=== PATIENT | male | born 1980 | race American Indian/Alaskan Native ===

== ENCOUNTER 2017-05-26 15:04 | Emergency (ER) | payer SELFPAY ==
[2017-05-26 15:50] VITALS: BP 116/66
--- NOTE | 2017-05-26 16:32 | XRay Report ---
FINAL REPORT PROCEDURE: XR KNEE 3V RT TECHNIQUE: Three views of the right knee are obtained HISTORY: Right knee pain and swelling/ GOUT COMPARISON: No prior studies are available for comparison. FINDINGS: Mild soft tissue swelling and joint effusion are seen. No erosions or soft tissue calcifications are seen. No fracture or dislocation is seen. IMPRESSION: Mild soft tissue swelling and joint effusion are seen.
[2017-05-26] MEDS ORDERED: TORADOL IM ONE (17:17)
--- NOTE | 2017-05-26 18:23 | Emergency Department Report ---
Entered by GM FIGUEROA, acting as scribe for SHANTELLE HONG NP. ED Lower Extremity HPI - General Chief Complaint: Extremity Injury, Lower Stated Complaint: RT KNEE SWOLLEN GOUT Time Seen by Provider: 05/26/17 17:01 Source: patient Mode of arrival: Ambulatory Limitations: No Limitations - History of Present Illness Initial Comments: This is a 36 y/o male, nontoxic, well nourished in appearance, no acute signs of distress presents with right knee pain x 2 days. Patient states he has a hx of gout. Patient denies any trauma. Patient stated has similar symptoms in the past for gout and has been treated with steroids and pain medication. Patients associated symptoms include swelling and pain but he denies numbness, tingling, fever, chills, joint redness, chest pain, shortness of breathe, nausea and vomiting. Pain is described as 8/10. Denies injury. No alleviating factors despite taking OTC meds and no aggravating factors. NKDA. WELCH Complaint: other (right knee pain) Onset/Timin -: days(s) Injury: Knee: Right Place: home Severity: moderate Severity scale (0 -10): 8 Improves With: nothing Worsens With: nothing Context: other (PMHx of gout) Associated Symptoms: swelling, ambulatory. denies: snap/pop sensation, numbness , tingling, unable to bear weight, able to partially bear weight, other (fever, chills, nausea, vomiting) - Related Data Previous Rx's Medication Instructions Recorded Last Taken Type Ibuprofen [Motrin 600 MG tab] 600 mg PO Q8H PRN #30 tablet 05/26/17 Unknown Rx predniSONE [Deltasone] 20 mg PO BID #10 tab 05/26/17 Unknown Rx Allergies Allergy/AdvReac Type Severity Reaction Status Date / Time No Known Allergies Allergy Unverified 05/19/15 11:36 ED Review of Systems Comment: All other systems reviewed and negative Constitutional: denies: chills, fever Eyes: denies: eye pain, eye discharge, vision change ENT: denies: ear pain, throat pain Respiratory: denies: cough, shortness of breath, wheezing Cardiovascular: denies: chest pain, palpitations Endocrine: no symptoms reported Gastrointestinal: denies: nausea, vomiting Genitourinary: denies: urgency, dysuria Musculoskeletal: denies: back pain, joint swelling, arthralgia Skin: other (swelling) Neurological: denies: numbness, other (tingling) Psychiatric: denies: anxiety, depression Hematological/Lymphatic: denies: easy bleeding, easy bruising ED Past Medical Hx - Past Medical History Previous Medical History?: Yes Additional medical history: gout - Surgical History Past Surgical History?: No - Social History Smoking Status: Current Every Day Smoker Substance Use Type: Alcohol, Non Opiate Pain - Medications Home Medications: Home Medications Medication Instructions Recorded Confirmed Last Taken Type Ibuprofen [Motrin 600 MG tab] 600 mg PO Q8H PRN #30 tablet 05/26/17 Unknown Rx predniSONE [Deltasone] 20 mg PO BID #10 tab 05/26/17 Unknown Rx ED Physical Exam - General Limitations: No Limitations General appearance: alert, in no apparent distress - Head Head exam: Present: atraumatic, normocephalic, normal inspection - Eye Eye exam: Present: normal appearance, PERRL, EOMI. Absent: scleral icterus, conjunctival injection, nystagmus, periorbital swelling, periorbital tenderness Pupils: Present: normal accommodation - ENT ENT exam: Present: normal exam, normal orophraynx, mucous membranes moist, TM's normal bilaterally, normal external ear exam - Neck Neck exam: Present: normal inspection, full ROM. Absent: tenderness, meningismus, lymphadenopathy, thyromegaly - Respiratory Respiratory exam: Present: normal lung sounds bilaterally. Absent: respiratory distress, wheezes, rales, rhonchi, stridor, chest wall tenderness, accessory muscle use, decreased breath sounds, prolonged expiratory - Cardiovascular Cardiovascular Exam: Present: regular rate, normal rhythm, normal heart sounds. Absent: bradycardia, tachycardia, irregular rhythm, systolic murmur, diastolic murmur, rubs, gallop - GI/Abdominal GI/Abdominal exam: Present: soft, normal bowel sounds. Absent: distended, tenderness, guarding, rebound, rigid, diminished bowel sounds - Rectal Rectal exam: Present: deferred - Extremities Exam Extremities exam: Present: normal inspection, full ROM, normal capillary refill. Absent: tenderness, pedal edema, joint swelling, calf tenderness - Expanded Lower Extremity Exam Right Hip exam: Present: normal inspection, full ROM. Absent: tenderness Upper Leg exam: Present: normal inspection, full ROM. Absent: tenderness Knee exam: Present: normal inspection (negative warm to touch.), full ROM, tenderness, swelling, effusion, full knee extension. Absent: abrasion, laceration, ecchymosis, deformity, crepidus, dislocation, erythema, pain w/ pronation/supination, posterior draw sign, pain/laxity with valgus, pain/laxity with varus Lower Leg exam: Present: normal inspection, full ROM. Absent: tenderness, swelling, abrasion, laceration, ecchymosis, deformity, crepidus, dislocation, erythema, palpable cord, Karoline's sign Ankle exam: Present: normal inspection, full ROM. Absent: tenderness, swelling , abrasion, laceration, ecchymosis, deformity, crepidus, dislocation, erythema, anterior draw sign Foot/Toe exam: Present: normal inspection, full ROM. Absent: tenderness, swelling, abrasion, laceration, ecchymosis, deformity, crepidus, dislocation, erythema, amputation, puncture wound, foreign body, calcaneal tenderness, tenderness at base of 5th metatarsal, nail avulsion, subungual hematoma Neuro vascular tendon exam: Present: no vascular compromise. Absent: pulse deficit, abnormal cap refill, motor deficit, sensory deficit, tendon deficit, extremity cold to touch, pallor, abnormal 2-point discrimination, decreased fine /light touch, foot drop, peroneal nerve deficit, significant pain with passive ROM of distal joint Gait: Positive: observed and normal - Back Exam Back exam: Present: normal inspection, full ROM. Absent: tenderness, CVA tenderness (R), CVA tenderness (L), muscle spasm, paraspinal tenderness, vertebral tenderness, rash noted - Neurological Exam Neurological exam: Present: alert, oriented X3, CN II-XII intact, normal gait, reflexes normal - Psychiatric Psychiatric exam: Present: normal affect, normal mood - Skin Skin exam: Present: warm, dry, intact, normal color. Absent: rash, erythema, other (cellulitis) ED Course Vital Signs 05/26/17 15:46 Temperature 98.1 F Pulse Rate 97 H Respiratory 18 Rate Blood Pressure 116/66 O2 Sat by Pulse 95 Oximetry - Reevaluation(s) Reevaluation #1: 05/26/17 17:32 Patient is able to speak in full sentences with no signs of distress noted. ED Lower Extremity MDM - Medical Decision Making Ed course: This is a 36-year-old male that presents with gout attack 1- patient was examined by myself. Xray has been obtained prior to my interview. Dictated by radiologist. Impression: Joint effusion with no fracture. Patient has been notified of x-ray findings with no further was noted by the patient. 2- signs and symptoms are consistent with gout. Patient received Toradol and prednisone IM and ED. 3- patient was instructed to follow-up with his primary care doctor in 3-5 days or if symptoms such as numbness, tingling, joint redness, warmth to touch, fever , chills, nausea or vomiting return to emergency room as soon as possible. 4- patient received prednisone and ibuprofen at the time of discharge. 5- At time time of discharge, the patient does not seem toxic or ill in appearance. No acute signs of distress noted. Patient agrees to discharge treatment plan of care. No further questions noted by the patient. ED Disposition Clinical Impression: Gout attack Qualifiers: Gout site: unspecified site Gout etiology: unspecified cause Qualified Code(s) : M10.9 - Gout, unspecified Disposition: DC-01 TO HOME OR SELFCARE Is pt being admited?: No Does the pt Need Aspirin: No Condition: Stable Instructions: Ibuprofen (By mouth), Prednisone (By mouth), Acute Gouty Arthritis (ED) Additional Instructions: follow-up with the primary care doctor in 3-5 days or if symptoms such as numbness, tingling, joint redness, warmth to touch, fever, chills, nausea or vomiting return to emergency room as soon as possible. Take prednisone and ibuprofen as prescribed. Prescriptions: Ibuprofen [Motrin 600 MG tab] 600 mg PO Q8H PRN #30 tablet PRN Reason: Pain predniSONE [Deltasone] 20 mg PO BID #10 tab Referrals: PRIMARY CARE, [Primary Care Provider] - 3-5 Days SHANAE NOYOLA MD [Staff Physician] - 3-5 Days [facility] [Outside] - 3-5 Days [facility] [Outside] - 3-5 Days This documentation as recorded by the HENRY rodriguez ELIZABETH,accurately reflects the service I personally performed and the decisions made by me,SHANTELLE HONG, LEGAL BILLING COORDINATOR.
== END 2017-05-26 18:07 | disposition home or self-care (01) ==
LOC: ED 15:04
DX: M10.9 Gout, unspecified (principal); F17.200 Nicotine dependence, unspecified, uncomplicated
CPT/HCPCS: 73562; 96372; 99283; J1885; J2930

== ENCOUNTER 2019-12-10 00:11 | Emergency (ER) | payer SELFPAY ==
[2019-12-10 00:43] VITALS: BP 128/81
[2019-12-10] MEDS ORDERED: IPRATROPIUM/ALBUTEROL SULFATE 3 ML AMPUL.NEB IH ONE (01:50)
[2019-12-10] MEDS ORDERED: dexAMETHasone 20 MG/5 ML VIAL IV ONE (01:50)
--- NOTE | 2019-12-10 02:14 | Emergency Department Report ---
ED General Adult HPI - General Chief complaint: Chest Pain Stated complaint: CHEST PAIN/SOB Time Seen by Provider: 12/10/19 01:27 Source: patient Mode of arrival: Ambulatory Limitations: No Limitations - History of Present Illness Initial comments: Mr. Blunt is a 38-year-old -Indian male with a history of asthma recurrent bronchitis states recent incarceration. He presents for cough with chest wall pain for the last 3 weeks. States he was diagnosed with Pneumonia 4 days ago when he was released from [facility] prior to receiving treatment.. He pr esents tonight for cough chest wall pain active audible wheezing. He denies history of intubation rates symptoms at 7/10 at this time however. He does report cough that is productive yellow thick. Chest pain is with cough only. Symptoms are exacerbated by environmental exposure. Symptoms are relieved by nothing. Onset/Timin -: week(s) Location: chest Radiation: non-radiation Severity scale (0 -10): 5 Quality: sharp Consistency: intermittent Improves with: none Worsens with: other (environmental Exposure ) Associated Symptoms: chest pain, cough, shortness of breath. denies: fever/chills, nausea/vomiting Treatments Prior to Arrival: none - Related Data Previous Rx's Medication Instructions Recorded Last Taken Type Ibuprofen [Motrin 600 MG tab] 600 mg PO Q8H PRN #30 tablet 05/26/17 Unknown Rx predniSONE [Deltasone] 20 mg PO BID #10 tab 05/26/17 Unknown Rx Albuterol INH(or & Nicu Only) 2 puff IH QID PRN #8.5 gram 12/10/19 Unknown Rx [ProAir HFA Inhaler] Amoxicillin/Potassium Clav 1 each PO BID 10 Days #20 tablet 12/10/19 Unknown Rx [Augmentin 875-125 Tablet] Ibuprofen [Motrin 800 MG tab] 800 mg PO Q8HR PRN #30 tablet 12/10/19 Unknown Rx predniSONE [Deltasone] 40 mg PO QDAY 5 Days #10 tab 12/10/19 Unknown Rx Allergies Allergy/AdvReac Type Severity Reaction Status Date / Time No Known Allergies Allergy Unverified 05/19/15 11:36 ED Review of Systems ROS: Stated complaint: CHEST PAIN/SOB Other details as noted in HPI Constitutional: fever. denies: chills Eyes: denies: eye pain, eye discharge, vision change ENT: ear pain, throat pain, congestion Respiratory: cough, shortness of breath, wheezing Cardiovascular: chest pain. denies: palpitations Endocrine: no symptoms reported Gastrointestinal: denies: abdominal pain, nausea, vomiting, diarrhea Genitourinary: denies: urgency, dysuria Musculoskeletal: denies: back pain, joint swelling, arthralgia Skin: denies: rash, lesions Neurological: denies: headache, weakness, paresthesias, vertigo Psychiatric: as per HPI Hematological/Lymphatic: denies: easy bleeding, easy bruising ED Past Medical Hx - Past Medical History Previous Medical History?: Yes Additional medical history: gout - Surgical History Past Surgical History?: No - Social History Smoking Status: Never Smoker - Medications Home Medications: Home Medications Medication Instructions Recorded Confirmed Last Taken Type Ibuprofen [Motrin 600 MG tab] 600 mg PO Q8H PRN #30 tablet 05/26/17 Unknown Rx predniSONE [Deltasone] 20 mg PO BID #10 tab 05/26/17 Unknown Rx Albuterol INH(or & Nicu Only) 2 puff IH QID PRN #8.5 gram 12/10/19 Unknown Rx [ProAir HFA Inhaler] Amoxicillin/Potassium Clav 1 each PO BID 10 Days #20 tablet 12/10/19 Unknown Rx [Augmentin 875-125 Tablet] Ibuprofen [Motrin 800 MG tab] 800 mg PO Q8HR PRN #30 tablet 12/10/19 Unknown Rx predniSONE [Deltasone] 40 mg PO QDAY 5 Days #10 tab 12/10/19 Unknown Rx ED Physical Exam - General Limitations: No Limitations General appearance: alert, in no apparent distress - Head Head exam: Present: atraumatic, normocephalic - Eye Eye exam: Present: normal appearance, PERRL, EOMI Pupils: Present: normal accommodation - ENT ENT exam: Present: normal orophraynx, mucous membranes moist - Expanded ENT Exam Expanded Ear exam: Present: other (bilat maxillary sinus tenderness no swelling no erythema ) TM/Canal exam: Erythema: Left TM Throat exam: Positive: tonsillar erythema, tonsillomegaly, other (uvula midline no edema, no exudate, no lesions no stridor ). Negative: tonsillar exudate, R peritonsillar mass, L peritonsillar mass - Neck Neck exam: Present: normal inspection, full ROM. Absent: tenderness, meningismus, lymphadenopathy, thyromegaly - Respiratory Respiratory exam: Present: wheezes, chest wall tenderness (right lateral chest wall tenderness , no crepitus, no swelling , no ecchymosis, ). Absent: respiratory distress, rales, rhonchi, stridor - Expanded Respiratory Exam Expanded Location: Wheezes: Right, Left, Upper - Cardiovascular Cardiovascular Exam: Present: regular rate, normal rhythm, normal heart sounds. Absent: systolic murmur, diastolic murmur, rubs, gallop - GI/Abdominal GI/Abdominal exam: Present: soft, normal bowel sounds. Absent: tenderness, bruit, hernia - Rectal Rectal exam: Present: deferred - Extremities Exam Extremities exam: Present: normal inspection, full ROM - Back Exam Back exam: Present: normal inspection, full ROM. Absent: tenderness, CVA tenderness (R), CVA tenderness (L) - Neurological Exam Neurological exam: Present: alert, oriented X3, CN II-XII intact, normal gait - Psychiatric Psychiatric exam: Present: normal affect, normal mood - Skin Skin exam: Present: warm, dry, intact, normal color. Absent: rash ED Course Vital Signs 12/10/19 12/10/19 00:26 02:36 Temperature 97.4 F L Pulse Rate 101 H Pulse Rate [ 104 H Bilateral] Respiratory 20 Rate Respiratory 22 Rate [Bilateral ] Blood Pressure 128/81 O2 Sat by Pulse 98 Oximetry ED Medical Decision Making - EKG Data EKG shows normal: sinus rhythm, axis, intervals, QRS complexes, ST-T waves Rate: tachycardia (107 bpm ) - EKG Data Interpretation: normal EKG (NSTach, no ST Elevated VA, EKG interp by ed attending ) - Radiology Data Radiology results: report reviewed, image reviewed Findings [facility] [address] [place] [address] XRay Report Signed Patient: JOVANNY BLUNT MR#: [id number] 2012 : 1980 Acct:[id number] Age/Sex: 38 / M ADM Date: 12/10/19 Loc: ED Attending Dr: Ordering Physician: MONICA ODEN NP Date of Service: 12/10/19 Procedure (s): XR chest routine 2V Accession Number(s): [id number] cc: MONICA T. RELEFORD, RN FORENSIC Fluoro Time In Minutes: CHEST 2 VIEWS INDICATION / CLINICAL INFORMATION: cp wheezing fever. COMPARISON: None available. FINDINGS: SUPPORT DEVICES: None. HEART / MEDIASTINUM: No significant abnormality. LUNGS / PLEURA: No significant pulmonary or pleural abnormality. .No pneumothorax. ADDITIONAL FINDINGS: No significant additional findings. IMPRESSION: 1. No acute findings. Signer Name: Fernando Valladares MD Signed: 12/10/2019 2:15 AM Workstation Name: [id number] Transcribed By: SS Dictated By: Fernando Valladares MD Electronically Authenticated By: Fernando Valladares MD Signed Date/Time: 12/10/19214 DD/ 3 TD/TT: - Medical Decision Making Chest x-ray no infiltrate no opacities noted, symptoms are improved with medications given in ED., Given fever and 3-1/2-week course follow-up prescribe augmentin, albuterol, prednisone, Tessalon, patient will take [id number] ibuprofen as needed for fever and chest wall pain. Patient will follow-up with PCP in 2 to 3 days given referral to [facility]. Lung sounds are now much improved patient is ambulatory in ED without increased shortness of breath or wheezing. Critical care attestation.: If time is entered above; I have spent that time in minutes in the direct care of this critically ill patient, excluding procedure time. ED Disposition Clinical Impression: Bronchitis Sinusitis Qualifiers: Sinusitis location: maxillary Chronicity: acute Recurrence: non-recurrent Qualified Code(s): J01.00 - Acute maxillary sinusitis, unspecified Disposition: TO HOME OR SELFCARE Is pt being admited?: No Does the pt Need Aspirin: No Condition: Stable Instructions: Acute Bronchitis (ED), Sinusitis (ED), Asthma (ED) Prescriptions: Amoxicillin/Potassium Clav [Augmentin 875-125 Tablet] 1 each PO BID 10 Days #20 tablet predniSONE [Deltasone] 40 mg PO QDAY 5 Days #10 tab Ibuprofen [Motrin 800 MG tab] 800 mg PO Q8HR PRN #30 tablet PRN Reason: fever pain Albuterol INH(or & Nicu Only) [ProAir HFA Inhaler] 2 puff IH QID PRN #8.5 gram PRN Reason: Shortness Of Breath Referrals: PRIMARY CARE, [Primary Care Provider] - 3-[address] [facility] [Outside] - 3-5 Days Forms: Work/School Release Form(ED) Time of Disposition: 03:44
--- NOTE | 2019-12-10 02:19 | XRay Report ---
CHEST 2 VIEWS INDICATION / CLINICAL INFORMATION: cp wheezing fever. COMPARISON: None available. FINDINGS: SUPPORT DEVICES: None. HEART / MEDIASTINUM: No significant abnormality. LUNGS / PLEURA: No significant pulmonary or pleural abnormality. .No pneumothorax. ADDITIONAL FINDINGS: No significant additional findings. IMPRESSION: 1. No acute findings. Signer Name: Fernando Valladares MD Signed: 12/10/2019 2:15 AM Workstation Name: [id number]
== END 2019-12-10 03:59 | disposition home or self-care (01) ==
LOC: ED 00:11
DX: J01.00 Acute maxillary sinusitis, unspecified (principal); J40 Bronchitis, not specified as acute or chronic; Z79.899 Other long term (current) drug therapy
CPT/HCPCS: 71046; 93005; 93010; 94644; 96374; 99283; J1100; 94640

== ENCOUNTER 2019-12-26 15:33 | Emergency (ER) | payer SELFPAY ==
[2019-12-26 16:14] VITALS: BP 126/85
--- NOTE | 2019-12-26 16:14 | Event Note ---
ED Screening Note Date of service: 12/26/19 Time: 16:13 ED Screening Note: 39 y.o. M. that presents to the ER with cough, SOB, and chest discomfort for 1 month. Treated for bronchitis when symptoms started. Using inhaler with minimal improvement of symptoms. SOB and chest discomfort with exertion. This initial assessment/diagnostic orders/clinical plan/treatment(s) is/are subject to change based on patients health status, clinical progression and re- assessment by fellow clinical providers in the ED. Further treatment and workup at subsequent clinical providers discretion. Patient/guardian urged not to elope from the ED as their condition may be serious if not clinically assessed and managed. Initial orders include:
--- NOTE | 2019-12-26 16:30 | Emergency Department Report ---
Minor Respiratory - HPI Chief Complaint: Dyspnea/Respdistress Stated Complaint: CHEST PAIN/SOB/COUGH Time Seen by Provider: 12/26/19 16:13 Duration: 1 MONTH Pain Location: Nose Severity: moderate Minor Respiratory: Yes Rhinorrhea, Yes Able to Tolerate Fluids, Yes Cough, Yes Sick Contacts, No Sore Throat, No Ear Pain, No Hemoptysis, No Chest Pain, No Shortness of Breath, No Fever Other History: 39 y.o. M. that presents to the ER with cough, SOB, and chest discomfort for 1 month. Treated for bronchitis when symptoms started. Using inhaler with minimal improvement of symptoms. Took claritin for a few days with no change in symptoms. Requesting refill on inhaler. Denies chest pain, wheezing, myalgia, headache, N/V/D. ED Review of Systems ROS: Stated complaint: CHEST PAIN/SOB/COUGH Other details as noted in HPI Constitutional: denies: chills, fever ENT: congestion. denies: ear pain, throat pain Respiratory: cough. denies: shortness of breath, wheezing Cardiovascular: denies: chest pain, palpitations Gastrointestinal: denies: abdominal pain, nausea, diarrhea Musculoskeletal: denies: back pain, joint swelling, arthralgia Skin: denies: rash, lesions Neurological: denies: headache, weakness, paresthesias Psychiatric: denies: anxiety, depression ED Past Medical Hx - Past Medical History Previous Medical History?: Yes Additional medical history: gout - Surgical History Past Surgical History?: No - Social History Smoking Status: Current Some Day Smoker Substance Use Type: None - Medications Home Medications: Home Medications Medication Instructions Recorded Confirmed Last Taken Type Ibuprofen [Motrin 600 MG tab] 600 mg PO Q8H PRN #30 tablet 05/26/17 Unknown Rx predniSONE [Deltasone] 20 mg PO BID #10 tab 05/26/17 Unknown Rx Albuterol INH(or & Nicu Only) 2 puff IH QID PRN #8.5 gram 12/10/19 Unknown Rx [ProAir HFA Inhaler] Amoxicillin/Potassium Clav 1 each PO BID 10 Days #20 tablet 12/10/19 Unknown Rx [Augmentin 875-125 Tablet] Ibuprofen [Motrin 800 MG tab] 800 mg PO Q8HR PRN #30 tablet 12/10/19 Unknown Rx predniSONE [Deltasone] 40 mg PO QDAY 5 Days #10 tab 12/10/19 Unknown Rx Albuterol INH(or & Nicu Only) 2 puff IH QID PRN #8.5 gram 12/26/19 Unknown Rx [ProAir HFA Inhaler] Montelukast [Singulair] 10 mg PO QPM #30 tablet 12/26/19 Unknown Rx methylPREDNISolone [Medrol 4MG 4 mg PO DAILY #1 tab.ds.pk 12/26/19 Unknown Rx DOSEPAK (21 tabs)] Minor Respiratory Exam - Exam General: Vital signs noted. No distress. Alert and acting appropriately. HEENT: Yes Moist Mucous Membranes, Yes Rhinorrhea (congestion with mucoid discharge), No Pharyngeal Erythema, No Pharyngeal Exudates, No Conjuctival Injection, No Frontal Tenderness, No Maxillary Tenderness Ear: Neither TM Bulge, Neither TM Erythema, Neither EAC Pain, Neither EAC Discharge Neck: Yes Supple, No Adenopathy Lungs: Yes Good Air Exchange, No Wheezes, No Ronchi, No Stridor, No Cough, No Labored Respirations, No Retractions, No Use of Accessory Muscles, No Other Abnormal Lung Sounds Heart: Yes Regular, No Murmur Abdomen: Yes Normal Bowel Sounds, No Tenderness, No Peritoneal Signs Skin: No Rash, No Edema Neurologic: Alert and oriented, no deficits. Musculoskeletal: Unremarkable. ED Course Vital Signs 12/26/19 15:39 Temperature 98.1 F Pulse Rate 78 Respiratory 18 Rate Blood Pressure 126/85 O2 Sat by Pulse 94 Oximetry ED Medical Decision Making - Medical Decision Making This is a 39 y.o. M. that presents to the ER with persistent cough and congestion for 1 month. VSS. No acute distress. Normal exam. Imaging and labs are deferred at this time. There is low suspicion of pneumonia. Will treat for bronchitis. Start antibiotics and steroids. Continue NSAIDs for comfort. Increase fluid intake. Wash hands frequently. Follow-up with your primary care doctor. Patient discharged home stable with strict return instructions. Critical care attestation.: If time is entered above; I have spent that time in minutes in the direct care of this critically ill patient, excluding procedure time. ED Disposition Clinical Impression: Cough in adult, Post-viral cough syndrome, Bronchitis Disposition: TO HOME OR SELFCARE Is pt being admited?: No Condition: Stable Instructions: Chronic Bronchitis (ED) Prescriptions: methylPREDNISolone [Medrol 4MG DOSEPAK (21 tabs)] 4 mg PO DAILY #1 tab.ds.pk Albuterol INH(or & Nicu Only) [ProAir HFA Inhaler] 2 puff IH QID PRN #8.5 gram PRN Reason: Shortness Of Breath Montelukast [Singulair] 10 mg PO QPM #30 tablet Referrals: [facility] [Outside] - 3-5 Days [facility] [Outside] - 3-5 Days [facility] [Outside] - 3-5 Days Time of Disposition: 16:31
== END 2019-12-26 18:07 | disposition home or self-care (01) ==
LOC: ED 15:33
DX: J40 Bronchitis, not specified as acute or chronic (principal); B34.9 Viral infection, unspecified; F17.200 Nicotine dependence, unspecified, uncomplicated
CPT/HCPCS: 99282

== ENCOUNTER 2020-01-20 22:18 | Emergency (ER) | payer SELFPAY ==
[2020-01-20 22:25] VITALS: BP 121/86
--- NOTE | 2020-01-20 23:09 | XRay Report ---
CHEST 2 VIEWS INDICATION / CLINICAL INFORMATION: Cough and shortness of breath. COMPARISON: 12/10/19. FINDINGS: SUPPORT DEVICES: None. HEART / MEDIASTINUM: The heart size and pulmonary vasculature are normal. LUNGS / PLEURA: No significant pulmonary or pleural abnormality. No pneumothorax. ADDITIONAL FINDINGS: No significant additional findings. IMPRESSION: No acute abnormality or significant change. Signer Name: Itz Zabala MD Signed: 01/20/2020 11:04 PM Workstation Name: [id number]
[2020-01-21] MEDS ORDERED: IPRATROPIUM/ALBUTEROL SULFATE 3 ML AMPUL.NEB IH ONE (02:34)
[2020-01-21] MEDS ORDERED: methylPREDNISolone Sod Succinate 125 MG/2 ML INJ IM ONE (02:34)
[2020-01-21] MEDS ORDERED: ACETAMINOPHEN 500 MG TAB PO ONE (02:35)
[2020-01-21] MEDS ORDERED: ALBUTEROL 2.5 MG/3 ML NEBU IH ONE (02:35)
--- NOTE | 2020-01-21 04:17 | Emergency Department Report ---
- General Chief Complaint: Upper Respiratory Infection Stated Complaint: SOB/CHEST PAIN Source: patient Mode of arrival: Ambulatory Limitations: No Limitations - History of Present Illness Initial Comments: Patient is a 39-year-old -Prydeinig male with a history of chronic bronchitis who presented to the ED with complaint of acute onset persistent nasal and sinus congestion, frontal sinus pressure and headache, persistent dry cough and wheezing with shortness of breath for the last 1 month, and which got worse in the last 1 week. Patient states that he has been using his albuterol inhaler at home more frequently and he ran out of the same about 12 hours ago. Patient states that the symptoms have worsened especially in the last 24 hours. Patient denies dizziness, syncope, chest pain, abdominal pain, fever, chills, sore throat, nausea and vomiting or diarrhea. Patient states that no one else at home is had similar symptoms. MD Complaint: cough, rhinorrhea, nasal congestion, sinus pain -: Gradual, month(s) (1) Severity: severe Severity scale (0 -10): 7 Quality: sharp, aching Consistency: intermittent Improves With: nothing Worsens With: nothing Associated Symptoms: denies other symptoms, rhinorrhea, nasal congestion, cough, shortness of breath. denies: fever, chills, myalgias, diaphoresis, headache, chest pain, abdominal pain, nausea, vomiting, diarrhea, confusion, weight loss, epistaxis Treatments Prior to Arrival: none - Related Data Previous Rx's Medication Instructions Recorded Last Taken Type predniSONE [Deltasone] 20 mg PO BID #10 tab 05/26/17 Unknown Rx Albuterol INH(or & Nicu Only) 2 puff IH QID PRN #8.5 gram 12/10/19 Unknown Rx [ProAir HFA Inhaler] Amoxicillin/Potassium Clav 1 each PO BID 10 Days #20 tablet 12/10/19 Unknown Rx [Augmentin 875-125 Tablet] Ibuprofen [Motrin 800 MG tab] 800 mg PO Q8HR PRN #30 tablet 12/10/19 Unknown Rx predniSONE [Deltasone] 40 mg PO QDAY 5 Days #10 tab 12/10/19 Unknown Rx Montelukast [Singulair] 10 mg PO QPM #30 tablet 12/26/19 Unknown Rx methylPREDNISolone [Medrol 4MG 4 mg PO DAILY #1 tab.ds.pk 12/26/19 Unknown Rx DOSEPAK (21 tabs)] Albuterol INH(or & Nicu Only) 2 puff IH QID PRN #8.5 gram 01/21/20 Unknown Rx [ProAir HFA Inhaler] Benzonatate [Tessalon Perles] 100 mg PO Q8HR #30 capsule 01/21/20 Unknown Rx Cetirizine HCl [Zyrtec 10mg tab] 10 mg PO DAILY #30 tablet 01/21/20 Unknown Rx Doxycycline Hyclate 100 mg PO Q12H #20 tablet.dr 01/21/20 Unknown Rx Ibuprofen [Motrin 600 MG tab] 600 mg PO Q8H PRN #30 tablet 01/21/20 Unknown Rx Prednisone [predniSONE 10 mg 10 mg PO .TAPER #21 tab.ds.pk 01/21/20 Unknown Rx (6-Day Pack, 21 Tabs)] Allergies Allergy/AdvReac Type Severity Reaction Status Date / Time No Known Allergies Allergy Verified 12/26/19 15:41 ED Review of Systems ROS: Stated complaint: SOB/CHEST PAIN Other details as noted in HPI Constitutional: denies: chills, fever Eyes: denies: eye pain, eye discharge, vision change ENT: congestion. denies: ear pain, throat pain Respiratory: cough, shortness of breath, wheezing Cardiovascular: denies: chest pain, palpitations Endocrine: no symptoms reported Gastrointestinal: denies: abdominal pain, nausea, diarrhea Genitourinary: denies: urgency, dysuria Musculoskeletal: denies: back pain, joint swelling, arthralgia Skin: denies: rash, lesions Neurological: denies: headache, weakness, paresthesias Psychiatric: denies: anxiety, depression Hematological/Lymphatic: denies: easy bleeding, easy bruising ED Past Medical Hx - Past Medical History Previous Medical History?: Yes Additional medical history: gout - Surgical History Past Surgical History?: No - Social History Smoking Status: Former Smoker Substance Use Type: None - Medications Home Medications: Home Medications Medication Instructions Recorded Confirmed Last Taken Type predniSONE [Deltasone] 20 mg PO BID #10 tab 05/26/17 Unknown Rx Albuterol INH(or & Nicu Only) 2 puff IH QID PRN #8.5 gram 12/10/19 Unknown Rx [ProAir HFA Inhaler] Amoxicillin/Potassium Clav 1 each PO BID 10 Days #20 tablet 12/10/19 Unknown Rx [Augmentin 875-125 Tablet] Ibuprofen [Motrin 800 MG tab] 800 mg PO Q8HR PRN #30 tablet 12/10/19 Unknown Rx predniSONE [Deltasone] 40 mg PO QDAY 5 Days #10 tab 12/10/19 Unknown Rx Montelukast [Singulair] 10 mg PO QPM #30 tablet 12/26/19 Unknown Rx methylPREDNISolone [Medrol 4MG 4 mg PO DAILY #1 tab.ds.pk 12/26/19 Unknown Rx DOSEPAK (21 tabs)] Albuterol INH(or & Nicu Only) 2 puff IH QID PRN #8.5 gram 01/21/20 Unknown Rx [ProAir HFA Inhaler] Benzonatate [Tessalon Perles] 100 mg PO Q8HR #30 capsule 01/21/20 Unknown Rx Cetirizine HCl [Zyrtec 10mg tab] 10 mg PO DAILY #30 tablet 01/21/20 Unknown Rx Doxycycline Hyclate 100 mg PO Q12H #20 tablet.dr 01/21/20 Unknown Rx Ibuprofen [Motrin 600 MG tab] 600 mg PO Q8H PRN #30 tablet 01/21/20 Unknown Rx Prednisone [predniSONE 10 mg 10 mg PO .TAPER #21 tab.ds.pk 01/21/20 Unknown Rx (6-Day Pack, 21 Tabs)] ED Physical Exam - General Limitations: No Limitations General appearance: alert, in no apparent distress - Head Head exam: Present: atraumatic, normocephalic, normal inspection - Eye Eye exam: Present: normal appearance, PERRL, EOMI Pupils: Present: normal accommodation - ENT ENT exam: Present: mucous membranes moist, TM's normal bilaterally, normal external ear exam, other (Grossly congested nasal passages) - Neck Neck exam: Present: normal inspection, full ROM. Absent: tenderness, meningismus, lymphadenopathy, thyromegaly - Respiratory Respiratory exam: Present: wheezes (Moderately diffuse coarse wheezes throughout). Absent: respiratory distress, rales, rhonchi, stridor, chest wall tenderness, accessory muscle use, decreased breath sounds - Cardiovascular Cardiovascular Exam: Present: normal rhythm, tachycardia, normal heart sounds. Absent: systolic murmur, diastolic murmur, rubs, gallop - GI/Abdominal GI/Abdominal exam: Present: soft, normal bowel sounds. Absent: distended, tenderness, guarding, hyperactive bowel sounds, hypoactive bowel sounds, organo megaly - Extremities Exam Extremities exam: Present: normal inspection, full ROM, normal capillary refill - Back Exam Back exam: Present: normal inspection, full ROM. Absent: tenderness, CVA tenderness (R), CVA tenderness (L), muscle spasm, paraspinal tenderness, vertebral tenderness - Neurological Exam Neurological exam: Present: alert, oriented X3, CN II-XII intact, normal gait, reflexes normal - Psychiatric Psychiatric exam: Present: normal affect, normal mood - Skin Skin exam: Present: warm, dry, intact, normal color. Absent: rash ED Course Vital Signs 01/20/20 22:23 Temperature 98.1 F Pulse Rate 105 H Respiratory 18 Rate Blood Pressure 121/86 O2 Sat by Pulse 92 Oximetry ED Medical Decision Making - Radiology Data Radiology results: report reviewed, image reviewed Chest x-ray shows no acute cardiopulmonary abnormalities. - Medical Decision Making This is a 39-year-old male with a history of chronic bronchitis who presented to the ED with complaint of persistent shortness of breath, wheezing, dry cough, nasal and sinus congestion despite using his albuterol inhaler at home. In the ED, patient is alert and oriented x3 and is not in distress but tachycardic and afebrile in triage. Patient received DuoNeb treatment in the ED and also received steroid. Chest x-ray shows no acute cardiopulmonary abnormalities or pneumonitis. On reevaluation, patient's wheezing resolved with medications. Patient was discharged home on albuterol inhaler, oral steroids and cough medications. Patient was advised to follow-up with his primary care physician in 3 to 5 days for reevaluation or return to the ED immediately if symptoms get worse. - Differential Diagnosis Pneumonia; Bronchitis; Sinusitis; URI; Reactive Airway disease Critical care attestation.: If time is entered above; I have spent that time in minutes in the direct care of this critically ill patient, excluding procedure time. ED Disposition Clinical Impression: Acute upper respiratory infection Acute bronchitis Qualifiers: Bronchitis organism: other organism Qualified Code(s): J20.8 - Acute bronchitis due to other specified organisms Acute sinusitis, unspecified Qualifiers: Sinusitis location: pansinusitis Recurrence: non-recurrent Qualified Code(s): J01.40 - Acute pansinusitis, unspecified Reactive airway disease with wheezing Qualifiers: Asthma severity: moderate Asthma persistence: persistent Asthma complication type: with acute exacerbation Qualified Code(s): J45.41 - Moderate persistent asthma with (acute) exacerbation Disposition: - TO HOME OR SELFCARE Is pt being admited?: No Does the pt Need Aspirin: No Condition: Stable Instructions: Acute Bronchitis (ED), Acute Bacterial Rhinosinusitis (ED), R eactive Airways Disease (ED) Additional Instructions: Chest x-ray shows no acute cardiopulmonary abnormalities. Take medications with food, drink plenty of fluids and follow-up with your primary care physician in 5 to 7 days for reevaluation. Return to the ED immediately if symptoms get worse. Prescriptions: Doxycycline Hyclate 100 mg PO Q12H #20 tablet. Ibuprofen [Motrin 600 MG tab] 600 mg PO Q8H PRN #30 tablet PRN Reason: Pain Prednisone [predniSONE 10 mg (6-Day Pack, 21 Tabs)] 10 mg PO .TAPER #21 tab.ds.pk Albuterol INH(or & Nicu Only) [ProAir HFA Inhaler] 2 puff IH QID PRN #8.5 gram PRN Reason: Shortness Of Breath Benzonatate [Tessalon Perles] 100 mg PO Q8HR #30 capsule Cetirizine HCl [Zyrtec 10mg tab] 10 mg PO DAILY #30 tablet Referrals: LIANNE AGRAWAL MD [Staff Physician] - 3-5 Days Forms: Work/School Release Form(ED) Time of Disposition: 04:19 Print Language: ESTONIAN
== END 2020-01-21 04:40 | disposition home or self-care (01) ==
LOC: ED 22:18
DX: J06.9 Acute upper respiratory infection, unspecified (principal); J45.909 Unspecified asthma, uncomplicated; J20.8 Acute bronchitis due to other specified organisms; J01.90 Acute sinusitis, unspecified; M10.9 Gout, unspecified; Z79.899 Other long term (current) drug therapy; Z87.891 Personal history of nicotine dependence
CPT/HCPCS: 71046; 94640; 96372; 99283; J2930; 94644

== ENCOUNTER 2020-02-05 21:13 | Inpatient (IN) | payer OTHER ==
[2020-02-05] MEDS ORDERED: ALUM-MAG HYDROXIDE-SIMETHICONE 200-200-20MG/5ML ORAL LIQD 30 ML PO STA (21:50)
[2020-02-05] MEDS ORDERED: HYOSCYAMINE SUBL 0.125 MG TAB SL ONE (21:50)
[2020-02-05] MEDS ORDERED: LIDOCAINE VISCOUS 2% 15 ML ORAL LIQD PO ONE (21:50)
[2020-02-05 21:56] LABS: Basophils # (Auto) 0.1 K/mm3 (0.0-0.1); Basophils % (Auto) 0.4 % (0.0-1.8); Eosinophils # (Auto) 0.5 K/mm3 (0.0-0.4); Eosinophils % (Auto) 3.1 % (0.0-4.3); Hematocrit 36.9 % (35.5-45.6); Hemoglobin 11.8 gm/dl (11.8-15.2); Lymphocytes % (Auto) 6.9 % (13.4-35.0); Mean Corpuscular HGB Conc 32 % (32-34); Monocytes # (Auto) 0.7 K/mm3 (0.0-0.8); Monocytes % (Auto) 4.9 % (0.0-7.3); Red Blood Count 5.81 M/mm3 (3.65-5.03); Red Cell Distribution Width 18.5 % (13.2-15.2)
[2020-02-05 22:05] LABS: Mean Corpuscular Volume 63 fl (84-94)
[2020-02-05 22:06] LABS: Platelet Count 104 K/mm3 (140-440)
[2020-02-05 22:11] LABS: Bilirubin,Urine NEG (Negative); Blood,Urine NEG (Negative); Color,Urine Yellow (Yellow); Mucus,Urine FEW /HPF; Urobilinogen,Urine < 2.0 mg/dL (<2.0)
[2020-02-05 22:12] LABS: Protein,Urine >500 mg/dL (Negative)
[2020-02-05 22:19] LABS: Alanine Aminotransferase 13 units/L (7-56); Albumin 2.8 g/dL (3.9-5); BUN/Creatinine Ratio 5; Blood Urea Nitrogen 4 mg/dL (9-20); Calcium 9.3 mg/dL (8.4-10.2); Hemolysis Index 4
--- NOTE | 2020-02-05 22:45 | XRay Report ---
ACUTE ABDOMINAL SERIES INDICATION / CLINICAL INFORMATION: Abdominal pain and constipation. Heartburn. COMPARISON: None available. FINDINGS: Upright and supine views of the abdomen demonstrate scattered air-fluid levels, predominantly in the colon. There is no evidence of bowel dilatation, free air or mass effect. No abnormal calcification i s seen. The accompanying chest radiograph constraints a normal heart size and clear lungs. IMPRESSION: Scattered air-fluid levels in the colon without associated dilatation. The findings may b e related to a low-grade colitis. Other causes of diarrhea could have this appearance. Signer Name: Itz Zabala MD Signed: 02/05/2020 10:41 PM Workstation Name: [id number]
[2020-02-05] MEDS ORDERED: SODIUM CHLORIDE 0.9% 1000 ML 1,000 ML IV ONE (23:21)
--- NOTE | 2020-02-06 00:06 | Cat Scan Report ---
CT abdomen pelvis w con INDICATION / CLINICAL INFORMATION: MAIN: eupper ABD Pain 100cc Omni 300 . TECHNIQUE: Axial CT imaging of abdomen and pelvis was obtained with IV contrast. Coronal and sagittal reformatte d imaging obtained and reviewed. All CT scans at this location are performed using CT dose reduction for ALARA by means of automated exposure control. COMPARISON: None available. FINDINGS: CT abdomen with contrast demonstrates normal appearance of the liver, spleen, kidneys and adrenal gla nds. Gallbladder is mostly collapsed. No biliary dilatation. The pancreas is diffusely enlarged and there is mild peripancreatic inflammatory change surrounding e ntire pancreas consistent with pancreatitis. Pancreatic parenchyma is enhancing normally. No biliary dilatation. No free fluid or focal abnormal fluid collection. CT pelvis with contrast demonstrates normal appearance of a retrocecal appendix. No pelvic mass, free fluid, or focal inflammatory change. GI tract is grossly unremarkable. Visualized lung bases are clear. No acute osseous abnormality. IMPRESSION: 1. Mild acute pancreatitis. Signer Name: Suzi Campos MD Signed: 02/06/2020 12:02 AM Workstation Name: [id number]
[2020-02-06] MEDS ORDERED: KETOROLAC 30 MG/1 ML INJ IM ONE (00:53)
[2020-02-06] MEDS ORDERED: KETOROLAC 30 MG/1 ML INJ IV ONE (01:03)
--- NOTE | 2020-02-06 01:03 | Emergency Department Report ---
ED Abdominal Pain HPI - General Chief Complaint: Abdominal Pain Stated Complaint: STOMAHC PAINS HEARTBURN SLIGHT SOB Time Seen by Provider: 02/05/20 21:50 Source: patient Mode of arrival: Ambulatory Limitations: No Limitations - History of Present Illness Initial Comments: 29-year-old male with no comorbidities was emergency department complaining of upper abdominal pain associated with some nausea and burning. Reports having some EtOH preceding his pain no.no diarrhea no constipation no hematemesis no hematochezia. MD Complaint: abdominal pain -: Gradual (1), days(s) - Related Data Previous Rx's Medication Instructions Recorded Last Taken Type predniSONE [Deltasone] 20 mg PO BID #10 tab 05/26/17 Unknown Rx Albuterol INH(or & Nicu Only) 2 puff IH QID PRN #8.5 gram 12/10/19 Unknown Rx [ProAir HFA Inhaler] Amoxicillin/Potassium Clav 1 each PO BID 10 Days #20 tablet 12/10/19 Unknown Rx [Augmentin 875-125 Tablet] Ibuprofen [Motrin 800 MG tab] 800 mg PO Q8HR PRN #30 tablet 12/10/19 Unknown Rx predniSONE [Deltasone] 40 mg PO QDAY 5 Days #10 tab 12/10/19 Unknown Rx Montelukast [Singulair] 10 mg PO QPM #30 tablet 12/26/19 Unknown Rx methylPREDNISolone [Medrol 4MG 4 mg PO DAILY #1 tab.ds.pk 12/26/19 Unknown Rx DOSEPAK (21 tabs)] Albuterol INH(or & Nicu Only) 2 puff IH QID PRN #8.5 gram 01/21/20 Unknown Rx [ProAir HFA Inhaler] Benzonatate [Tessalon Perles] 100 mg PO Q8HR #30 capsule 01/21/20 Unknown Rx Cetirizine HCl [Zyrtec 10mg tab] 10 mg PO DAILY #30 tablet 01/21/20 Unknown Rx Doxycycline Hyclate 100 mg PO Q12H #20 tablet. 01/21/20 Unknown Rx Ibuprofen [Motrin 600 MG tab] 600 mg PO Q8H PRN #30 tablet 01/21/20 Unknown Rx Prednisone [predniSONE 10 mg 10 mg PO .TAPER #21 tab.ds.pk 01/21/20 Unknown Rx (6-Day Pack, 21 Tabs)] Allergies Allergy/AdvReac Type Severity Reaction Status Date / Time No Known Allergies Allergy Verified 12/26/19 15:41 ED Review of Systems ROS: Stated complaint: STOMAHC PAINS HEARTBURN SLIGHT SOB Other details as noted in HPI Comment: All other systems reviewed and negative ED Past Medical Hx - Past Medical History Previous Medical History?: Yes Additional medical history: gout, Bronchitis - Surgical History Past Surgical History?: No - Social History Smoking Status: Former Smoker Substance Use Type: None - Medications Home Medications: Home Medications Medication Instructions Recorded Confirmed Last Taken Type predniSONE [Deltasone] 20 mg PO BID #10 tab 05/26/17 Unknown Rx Albuterol INH(or & Nicu Only) 2 puff IH QID PRN #8.5 gram 12/10/19 Unknown Rx [ProAir HFA Inhaler] Amoxicillin/Potassium Clav 1 each PO BID 10 Days #20 tablet 12/10/19 Unknown Rx [Augmentin 875-125 Tablet] Ibuprofen [Motrin 800 MG tab] 800 mg PO Q8HR PRN #30 tablet 12/10/19 Unknown Rx predniSONE [Deltasone] 40 mg PO QDAY 5 Days #10 tab 12/10/19 Unknown Rx Montelukast [Singulair] 10 mg PO QPM #30 tablet 12/26/19 Unknown Rx methylPREDNISolone [Medrol 4MG 4 mg PO DAILY #1 tab.ds.pk 12/26/19 Unknown Rx DOSEPAK (21 tabs)] Albuterol INH(or & Nicu Only) 2 puff IH QID PRN #8.5 gram 01/21/20 Unknown Rx [ProAir HFA Inhaler] Benzonatate [Tessalon Perles] 100 mg PO Q8HR #30 capsule 01/21/20 Unknown Rx Cetirizine HCl [Zyrtec 10mg tab] 10 mg PO DAILY #30 tablet 01/21/20 Unknown Rx Doxycycline Hyclate 100 mg PO Q12H #20 tablet.dr 01/21/20 Unknown Rx Ibuprofen [Motrin 600 MG tab] 600 mg PO Q8H PRN #30 tablet 01/21/20 Unknown Rx Prednisone [predniSONE 10 mg 10 mg PO .TAPER #21 tab.ds.pk 01/21/20 Unknown Rx (6-Day Pack, 21 Tabs)] ED Physical Exam - General Limitations: No Limitations General appearance: alert, in no apparent distress - Head Head exam: Present: atraumatic, normocephalic - Eye Eye exam: Present: normal appearance, PERRL, EOMI Pupils: Present: normal accommodation - ENT ENT exam: Present: normal exam, normal orophraynx, mucous membranes moist, TM's normal bilaterally - Neck Neck exam: Present: normal inspection - Respiratory Respiratory exam: Present: normal lung sounds bilaterally. Absent: respiratory distress, wheezes, rales, chest wall tenderness, accessory muscle use - Cardiovascular Cardiovascular Exam: Present: regular rate, normal rhythm. Absent: systolic murmur, diastolic murmur, rubs, gallop - GI/Abdominal GI/Abdominal exam: Present: soft, tenderness (To the epigastric region), normal bowel sounds. Absent: rebound, hypoactive bowel sounds, mass, bruit, pulsatile mass - Rectal Rectal exam: Present: deferred - Extremities Exam Extremities exam: Present: normal inspection - Back Exam Back exam: Present: normal inspection - Neurological Exam Neurological exam: Present: alert, oriented X3 - Psychiatric Psychiatric exam: Present: normal affect, normal mood - Skin Skin exam: Present: warm, dry, intact, normal color. Absent: rash ED Course Vital Signs 02/05/20 21:17 Temperature 98.6 F Pulse Rate 110 H Respiratory 18 Rate Blood Pressure 145/97 O2 Sat by Pulse 97 Oximetry ED Medical Decision Making - Lab Data Result diagrams: 02/05/20 21:37 02/05/20 21:37 - Radiology Data Radiology results: [place] [address] Cat Scan Report Signed Patient: JOVANNY BLUNT MR#: [id number] 2012 : 1980 Acct:[id number] Age/Sex: 39 / M ADM Date: 02/05/20 Loc: ED Attending Dr: Ordering Physician: JOE KRAMER Date of Service: 02/05/20 Procedure(s): CT abdomen pelvis w con Accession Number(s): [id number] cc: JOE KRAMER CT abdomen pelvis w con INDICATION / CLINICAL INFORMATION: MAIN: eupper ABD Pain 100cc Omni 300 . TECHNIQUE: Axial CT imaging of abdomen and pelvis was obtained with IV contrast. Coronal and sagittal reformatted imaging obtained and reviewed. All CT scans at this location are performed using CT dose reduction for ALARA by means of automated exposure control. COMPARISON: None available. FINDINGS: CT abdomen with contrast demonstrates normal appearance of the liver, spleen, kidneys and adrenal glands. Gallbladder is mostly collapsed. No biliary dilatation. The pancreas is diffusely enlarged and there is mild peripancreatic inflammatory change surrounding entire pancreas consistent with pancreatitis. Pancreatic parenchyma is enhancing normally. No biliary dilatation. No free fluid or focal abnormal fluid collection. CT pelvis with contrast demonstrates normal appearance of a retrocecal appendix. No pelvic mass, free fluid, or focal inflammatory change. GI tract is grossly unremarkable. Visualized lung bases are clear. No acute osseous abnormality. IMPRESSION: 1. Mild acute pancreatitis. Signer Name: Suzi Campos MD Signed: 02/06/2020 12:02 AM Workstation Name: [id number] Transcribed By: Dictated By: Suzi Campos MD Electronically Authenticated By: Suzi Campos MD Signed Date/Time: 02/06/20 0002 DD/ 2359 TD/TT: - Medical Decision Making [address] [address] Cat Scan Report Signed Patient: JOVANNY BLUNT MR#: [id number] 2012 : 1980 Acct:[id number] Age/Sex: 39 / M ADM Date: 02/05/20 Loc: ED Attending Dr: Ordering Physician: JOE KRAMER Date of Service: 02/05/20 Procedure(s): CT abdomen pelvis w con Accession Number(s): [id number] cc: JOE KRAMER CT abdomen pelvis w con INDICATION / CLINICAL INFORMATION: MAIN: eupper ABD Pain 100cc Omni 300 . TECHNIQUE: Axial CT imaging of abdomen and pelvis was obtained with IV contrast. Coronal and sagittal reformatted imaging obtained and reviewed. All CT scans at this location are performed using CT dose reduction for ALARA by means of automated exposure control. COMPARISON: None available. FINDINGS: CT abdomen with contrast demonstrates normal appearance of the liver, spleen, kidneys and adrenal glands. Gallbladder is mostly collapsed. No biliary dilatation. The pancreas is diffusely enlarged and there is mild peripancreatic inflammatory change surrounding entire pancreas consistent with pancreatitis. Pancreatic parenchyma is enhancing normally. No biliary dilatation. No free fluid or focal abnormal fluid collection. CT pelvis with contrast demonstrates normal appearance of a retrocecal appendix. No pelvic mass, free fluid, or focal inflammatory change. GI tract is grossly unremarkable. Visualized lung bases are clear. No acute osseous abnormality. IMPRESSION: 1. Mild acute pancreatitis. Signer Name: Suzi Campos MD Signed: 02/06/2020 12:02 AM Workstation Name: [id number] Transcribed By: JR Dictated By: Suzi Campos MD Electronically Authenticated By: Suzi Campos MD Signed Date/Time: 02/06/20 0002 DD/ 2359 TD/TT: This patient presents with abdominal pain which appears to be secondary to acute pancreatitis. A CT scan was performed to evaluate for potential causes of the abdominal pain, and did yield a mild pancreatitis etiology for the abdominal pain. Specifically, given the benign exam, the laboratory studies, and unremarkable CT, I have a very low suspicion for appendicitis, ischemic bowel, bowel perforation, or any other life threatening disease. I have discussed with the patient the findings on CT examination for the cause of abdominal pain and clearly explained the need t for admission for definitive treatment of this condition. He was provided with fluids and placed on n.p.o. Case was discussed with the attending Dr. Magaña as well as the hospitalist Dr. Roy Critical care attestation.: If time is entered above; I have spent that time in minutes in the direct care of this critically ill patient, excluding procedure time. ED Disposition Clinical Impression: Acute pancreatitis Disposition: OP ADMIT IP TO THIS HOSP Is pt being admited?: Yes Does the pt Need Aspirin: No Condition: Stable Referrals: ABENA DEGROOT MD [Primary Care Provider] - 3-5 Days
[2020-02-06] MEDS ORDERED: SODIUM CHLORIDE 0.9% 1000 ML 1,000 ML IV ONE (01:04)
[2020-02-06] MEDS ORDERED: ALBUTEROL 8.5 GM INHALATION IH PRN (03:25)
--- NOTE | 2020-02-06 03:25 | History and Physical Report ---
History of Present Illness Date of examination: 02/06/20 Date of admission: February 06, 2020 Chief complaint: Severe epigastric pain and vomiting for last 3 days History of present illness: 29-year-old male with history of asthma and bronchitis comes in for severe epiga stric pain for the last 3 days. Associated with vomiting. Pain is about 10 on a scale of 1-10. Patient has been using alcohol on a regular basis. Had a pint of vodka on Saturday which is February 02, 2020. Vomited couple of times. No blood in the vomit. No diarrhea. There is the first episode of epigastric pain.. Patient has a history of asthma and bronchitis and regular basis. No cough now. No exposure to coronavirus patients. No recent travel. - Past Medical History Previous Medical History?: Yes Additional medical history: gout, Bronchitis - Surgical History Past Surgical History?: No - Social History Smoking Status: Former Smoker Substance Use Type: None - Medications Home Medications: Home Medications Medication Instructions Recorded Confirmed Last Taken Type predniSONE [Deltasone] 20 mg PO BID #10 tab 05/26/17 Unknown Rx Albuterol INH(or & Nicu Only) 2 puff IH QID PRN #8.5 gram 12/10/19 Unknown Rx [ProAir HFA Inhaler] Amoxicillin/Potassium Clav 1 each PO BID 10 Days #20 tablet 12/10/19 Unknown Rx [Augmentin 875-125 Tablet] Ibuprofen [Motrin 800 MG tab] 800 mg PO Q8HR PRN #30 tablet 12/10/19 Unknown Rx predniSONE [Deltasone] 40 mg PO QDAY 5 Days #10 tab 12/10/19 Unknown Rx Montelukast [Singulair] 10 mg PO QPM #30 tablet 12/26/19 Unknown Rx methylPREDNISolone [Medrol 4MG 4 mg PO DAILY #1 tab.ds.pk 12/26/19 Unknown Rx DOSEPAK (21 tabs)] Albuterol INH(or & Nicu Only) 2 puff IH QID PRN #8.5 gram 01/21/20 Unknown Rx [ProAir HFA Inhaler] Benzonatate [Tessalon Perles] 100 mg PO Q8HR #30 capsule 01/21/20 Unknown Rx Cetirizine HCl [Zyrtec 10mg tab] 10 mg PO DAILY #30 tablet 01/21/20 Unknown Rx Doxycycline Hyclate 100 mg PO Q12H #20 tablet. 01/21/20 Unknown Rx Ibuprofen [Motrin 600 MG tab] 600 mg PO Q8H PRN #30 tablet 01/21/20 Unknown Rx Prednisone [predniSONE 10 mg 10 mg PO .TAPER #21 tab.ds.pk 01/21/20 Unknown Rx (6-Day Pack, 21 Tabs)] Review of Systems ROS: GI severe epigastric pain associated with nausea and vomiting. Pain is about 10 on a scale of 1-10. Constitutional no weight loss or weight gain no fever or chills HEENT no sore throat no post nasal drip no diplopia Neck no neck stiffness no lymph gland enlargement Chest and lungs no shortness of breath cough or wheezing CVS no chest pain no diaphoresis no palpitations Genitourinary system no dysuria no flank pain Musculoskeletal system no muscle pains no joint pains [employer] no syncope no seizures Skin no rash no itching Psychiatric no depression no homicidal or suicidal tendencies Hematologic no lymphedema or bruising Endocrine no polydipsia no polyuria no cold intolerance no heat intolerance Medications and Allergies Allergies Allergy/AdvReac Type Severity Reaction Status Date / Time No Known Allergies Allergy Verified 12/26/19 15:41 Home Medications Medication Instructions Recorded Confirmed Last Taken Type predniSONE [Deltasone] 20 mg PO BID #10 tab 05/26/17 Unknown Rx Albuterol INH(or & Nicu Only) 2 puff IH QID PRN #8.5 gram 12/10/19 Unknown Rx [ProAir HFA Inhaler] Amoxicillin/Potassium Clav 1 each PO BID 10 Days #20 tablet 12/10/19 Unknown Rx [Augmentin 875-125 Tablet] Ibuprofen [Motrin 800 MG tab] 800 mg PO Q8HR PRN #30 tablet 12/10/19 Unknown Rx predniSONE [Deltasone] 40 mg PO QDAY 5 Days #10 tab 12/10/19 Unknown Rx Montelukast [Singulair] 10 mg PO QPM #30 tablet 12/26/19 Unknown Rx methylPREDNISolone [Medrol 4MG 4 mg PO DAILY #1 tab.ds.pk 12/26/19 Unknown Rx DOSEPAK (21 tabs)] Albuterol INH(or & Nicu Only) 2 puff IH QID PRN #8.5 gram 01/21/20 Unknown Rx [ProAir HFA Inhaler] Benzonatate [Tessalon Perles] 100 mg PO Q8HR #30 capsule 01/21/20 Unknown Rx Cetirizine HCl [Zyrtec 10mg tab] 10 mg PO DAILY #30 tablet 01/21/20 Unknown Rx Doxycycline Hyclate 100 mg PO Q12H #20 tablet.dr 01/21/20 Unknown Rx Ibuprofen [Motrin 600 MG tab] 600 mg PO Q8H PRN #30 tablet 01/21/20 Unknown Rx Prednisone [predniSONE 10 mg 10 mg PO .TAPER #21 tab.ds.pk 01/21/20 Unknown Rx (6-Day Pack, 21 Tabs)] Exam - Constitutional Vitals: Temp Pulse Resp BP Pulse Ox 98.1 F 94 H 18 147/93 99 02/06/20 01:29 02/06/20 01:29 02/06/20 01:29 02/06/20 01:29 02/06/20 01:29 General appearance: Present: no acute distress, well-nourished - EENT Eyes: Present: PERRL ENT: hearing intact, clear oral mucosa - Neck Neck: Present: supple, normal ROM - Respiratory Respiratory effort: normal Respiratory: bilateral: CTA - Cardiovascular Heart rate: 78 Rhythm: regular Heart Sounds: Present: S1 & S2. Absent: rub, click - Extremities Extremities: no ischemia, pulses intact, pulses symmetrical, No edema Peripheral Pulses: within normal limits - Abdominal General gastrointestinal: Present: soft, tender, non-distended, normal bowel sounds Localized gastrointestinal: tender: diffuse, epigastric periumbilical, guarding: epigastric periumbilical Male genitourinary: Present: normal - Rectal Rectal Exam: stool brown - Integumentary Integumentary: Present: clear, warm, dry - Musculoskeletal Musculoskeletal: gait normal, strength equal bilaterally - Psychiatric Psychiatric: appropriate mood/affect, intact judgment & insight - Neurologic Neurologic: CNII-XII intact, moves all extremities - Allied Health Allied health notes reviewed: nursing, case management Results - Labs CBC & Chem 7: 02/05/20 21:37 02/05/20 21:37 Labs: Laboratory Last Values WBC 15.1 K/mm3 (4.5-11.0) H 02/05/20 21:37 RBC 5.81 M/mm3 (3.65-5.03) H 02/05/20 21:37 Hgb 11.8 gm/dl (11.8-15.2) 02/05/20 21:37 Hct 36.9 % (35.5-45.6) 02/05/20 21:37 MCV 63 fl (84-94) L 02/05/20 21:37 MCH 20 pg (28-32) L 02/05/20 21:37 MCHC 32 % (32-34) 02/05/20 21:37 RDW 18.5 % (13.2-15.2) H 02/05/20 21:37 Plt Count 104 K/mm3 (140-440) L 02/05/20 21:37 Lymph % (Auto) 6.9 % (13.4-35.0) L 02/05/20 21:37 Lucas % (Auto) 4.9 % (0.0-7.3) 02/05/20 21:37 Eos % (Auto) 3.1 % (0.0-4.3) 02/05/20 21:37 Baso % (Auto) 0.4 % (0.0-1.8) 02/05/20 21:37 Lymph # 1.0 K/mm3 (1.2-5.4) L 02/05/20 21:37 Lucas # 0.7 K/mm3 (0.0-0.8) 02/05/20 21:37 Eos # 0.5 K/mm3 (0.0-0.4) H 02/05/20 21:37 Baso # 0.1 K/mm3 (0.0-0.1) 02/05/20 21:37 Seg Neutrophils % 84.7 % (40.0-70.0) H 02/05/20 21:37 Seg Neutrophils # 12.8 K/mm3 (1.8-7.7) H 02/05/20 21:37 Sodium 137 mmol/L (137-145) 02/05/20 21:37 Potassium 4.2 mmol/L (3.6-5.0) 02/05/20 21:37 Chloride 99.6 mmol/L (98-107) 02/05/20 21:37 Carbon Dioxide 27 mmol/L (22-30) 02/05/20 21:37 Anion Gap 15 mmol/L 02/05/20 21:37 BUN 4 mg/dL (9-20) L 02/05/20 21:37 Creatinine 0.8 mg/dL (0.8-1.5) 02/05/20 21:37 Estimated GFR > 60 ml/min 02/05/20 21:37 BUN/Creatinine Ratio 5 % 02/05/20 21:37 Glucose 145 mg/dL (75-100) H 02/05/20 21:37 Calcium 9.3 mg/dL (8.4-10.2) 02/05/20 21:37 Total Bilirubin 0.40 mg/dL (0.1-1.2) 02/05/20 21:37 AST 12 units/L (5-40) 02/05/20 21:37 ALT 13 units/L (7-56) 02/05/20 21:37 Alkaline Phosphatase 83 units/L (35-129) 02/05/20 21:37 Total Protein 7.1 g/dL (6.3-8.2) 02/05/20 21:37 Albumin 2.8 g/dL (3.9-5) L 02/05/20 21:37 Albumin/Globulin Ratio 0.7 % 02/05/20 21:37 Lipase 982 units/L (13-60) H 02/05/20 21:54 Urine Color Yellow (Yellow) 02/05/20 22:02 Urine Turbidity Clear (Clear) 02/05/20 22:02 Urine pH 8.0 (5.0-7.0) H 02/05/20 22:02 Ur Specific [place] 1.026 (1.003-1.030) 02/05/20 22:02 Urine Protein >500 mg/dL (Negative) 02/05/20 22:02 Urine Glucose (UA) Neg mg/dL (Negative) 02/05/20 22:02 Urine Ketones Neg mg/dL (Negative) 02/05/20 22:02 Urine Blood Neg (Negative) 02/05/20 22:02 Urine Nitrite Neg (Negative) 02/05/20 22:02 Urine Bilirubin Neg (Negative) 02/05/20 22:02 Urine Urobilinogen < 2.0 mg/dL (<2.0) 02/05/20 22:02 Ur Leukocyte Esterase Neg (Negative) 02/05/20 22:02 Urine WBC (Auto) 1.0 /HPF (0.0-6.0) 02/05/20 22:02 Urine RBC (Auto) 1.0 /HPF (0.0-6.0) 02/05/20 22:02 Urine Mucus Few /HPF 02/05/20 22:02 Short CBC 02/05/20 Range/Units 21:37 WBC 15.1 H (4.5-11.0) K/mm3 Hgb 11.8 (11.8-15.2) gm/dl Hct 36.9 (35.5-45.6) % Plt Count 104 L (140-440) K/mm3 BMP 02/05/20 21:37 Sodium 137 Potassium 4.2 Chloride 99.6 Carbon Dioxide 27 BUN 4 L Creatinine 0.8 Glucose 145 H Calcium 9.3 Liver Function 02/05/20 Range/Units 21:37 Total Bilirubin 0.40 (0.1-1.2) mg/dL AST 12 (5-40) units/L ALT 13 (7-56) units/L Alkaline Phosphatase 83 (35-129) units/L Albumin 2.8 L (3.9-5) g/dL Urine 02/05/20 Range/Units 22:02 Urine Color Yellow (Yellow) Urine pH 8.0 H (5.0-7.0) Ur Specific [place] 1.026 (1.003-1.030) Urine Protein >500 (Negative) mg/dL Urine Glucose (UA) Neg (Negative) mg/dL - Imaging and Cardiology CT scan - abdomen: report reviewed Imaging and Cardiology: CT abdomen IMPRESSION: 1. Mild acute pancreatitis. Garibay/IV: IV Catheter Type [Right Distal INT / Saline Lock Port Antecubital] Assessment and Plan Advance Directives: Yes (Full code) VTE prophylaxis?: Chemical Plan of care discussed with patient/family: Yes - Patient Problems (1) Acute pancreatitis Current Visit: Yes Status: Acute Qualifiers: Pancreatitis type: alcohol induced Acute pancreatitis complication: unspecified Qualified Code(s): K85.20 - Alcohol induced acute pancreatitis without necrosis or infection Plan to address problem: We will keep the patient n.p.o. IV fluids for now Recheck amylase and lipase Counseled about alcohol intake (2) EtOH dependence Current Visit: Yes Status: Chronic Qualifiers: Substance use status: uncomplicated Qualified Code(s): F10.20 - Alcohol dependence, uncomplicated Plan to address problem: [facility] protocol initiated (3) Asthma Current Visit: Yes Status: Chronic Qualifiers: Asthma severity: mild Plan to address problem: Continue Singulair once he is on clear liquids (4) DVT prophylaxis Current Visit: Yes Status: Acute Plan to address problem: On heparin and GI prophylaxis
[2020-02-06] MEDS ORDERED: ONDANSETRON 4 MG/2 ML INJ IV PRN (03:26)
[2020-02-06] MEDS ORDERED: ACETAMINOPHEN 325 MG TAB PO PRN (03:26)
[2020-02-06] MEDS ORDERED: HYDROmorphone 1 MG/1 ML INJ IV PRN (03:26)
[2020-02-06] MEDS ORDERED: METOCLOPRAMIDE 10 MG/2 ML INJ IV PRN (03:26)
[2020-02-06] MEDS ORDERED: LORazepam 2 MG/ML VIAL IV PRN ×2 (03:29)
[2020-02-06] MEDS: FAMOTIDINE 20 MG/2 ML INJ IV SCH ×2 (03:57→10:20)
[2020-02-06] MEDS ORDERED: D5W/0.9% NACL 1,000 ML IV SCH (04:00)
[2020-02-06] MEDS ORDERED: ALBUTEROL 2.5 MG/3 ML NEBU IH PRN (04:22)
[2020-02-06] MEDS ORDERED: CETIRIZINE 10 MG TAB PO SCH (10:00)
--- NOTE | 2020-02-06 10:06 | Discharge Summary ---
Providers - Providers Date of Admission: 02/06/20 04:35 Date of discharge: 02/06/20 Attending physician: RON NAVARRETE [facility] Reason for admission: Acute pancreatitis Condition: Stable Hospital course: 29-year-old male with history of asthma and bronchitis comes in for severe epig astric pain for the last 3 days. Associated with vomiting. Pain is about 10 on a scale of 1-10. Patient has been using alcohol on a regular basis. Had a pint of vodka on Saturday which is February 02, 2020. Vomited couple of times. No blood in the vomit. No diarrhea. There is the first episode of epigastric pain.. Patient has a history of asthma and bronchitis and regular basis. No cough now. No exposure to coronavirus patients. No recent travel. The patient was admitted with diagnosis of acute alcohol pancreatitis. The patient was noted to have lipase elevated at 982. Patient received supportive care with antiemetics and IV fluid hydration. Patient had improvement of symptoms and was able to tolerate a diet. Lipase improved to 510. Patient is felt to have received maximal hospital benefit and will be discharged home. Dedicated discharge time 35 minutes Disposition: DC-01 TO HOME OR SELFCARE Time spent for discharge: 35 - Discharge Diagnoses (1) Acute pancreatitis Status: Acute Qualifiers: Pancreatitis type: alcohol induced Acute pancreatitis complication: unspecified Qualified Code(s): K85.20 - Alcohol induced acute pancreatitis without necrosis or infection (2) EtOH dependence Status: Chronic Qualifiers: Substance use status: uncomplicated Qualified Code(s): F10.20 - Alcohol dependence, uncomplicated Core Measure Documentation - Palliative Care Palliative Care/ Comfort Measures: Not Applicable - Core Measures Any of the following diagnoses?: none Exam - Constitutional Vitals: Temp Pulse Resp BP Pulse Ox 98.3 F 74 18 135/86 92 02/06/20 07:22 02/06/20 07:22 02/06/20 07:22 02/06/20 07:22 02/06/20 07:22 General appearance: Present: no acute distress, well-nourished - EENT Eyes: Present: PERRL ENT: hearing intact, clear oral mucosa - Neck Neck: Present: supple, normal ROM - Respiratory Respiratory effort: normal Respiratory: bilateral: CTA - Cardiovascular Heart Sounds: Present: S1 & S2. Absent: rub, click - Extremities Extremities: pulses symmetrical, No edema Peripheral Pulses: within normal limits - Abdominal General gastrointestinal: Present: soft, non-tender, non-distended, normal bowel sounds Male genitourinary: Present: normal - Integumentary Integumentary: Present: clear, warm, dry - Musculoskeletal Musculoskeletal: gait normal, strength equal bilaterally - Psychiatric Psychiatric: appropriate mood/affect, intact judgment & insight - Neurologic Neurologic: CNII-XII intact, moves all extremities Plan Activity: advance as tolerated Weight Bearing Status: Weight Bear as Tolerated Diet: regular Follow up with: ABENA DEGROOT MD [Primary Care Provider] - 3-5 Days Prescriptions: oxyCODONE /ACETAMINOPHEN [Percocet 5/325] 1 tab PO Q4HR #12 tab Albuterol INH(or & Nicu Only) [ProAir HFA Inhaler] 2 puff IH QID PRN #8.5 gram PRN Reason: Shortness Of Breath Montelukast [Singulair] 10 mg PO QPM #30 tablet
[2020-02-06] MEDS: HEPARIN 5,000 UNIT/1 ML VIAL SUB-Q SCH ×2 (10:20→10:22)
[2020-02-06 12:09] VITALS: BP 126/80
== END 2020-02-06 15:00 | disposition home or self-care (01) | DRG 440 ==
LOC: ED 21:13 → 4A 02-06 04:35
PROVIDERS: ADMIT Internal Medicine; ATTEND Hospitalist
DX: K85.20 Alcohol induced acute pancreatitis without necrosis or infection (principal); J45.909 Unspecified asthma, uncomplicated; F10.20 Alcohol dependence, uncomplicated; M10.9 Gout, unspecified; Z79.899 Other long term (current) drug therapy
CPT/HCPCS: 36415; 74022; 74177; 80053; 81001; 82150; 83036; 83690; 85025; G0378; J1170; J1644; J1885; J7030; J7042; Q9967

== ENCOUNTER 2020-02-09 21:51 | Emergency (ER) | payer SELFPAY ==
[2020-02-09 22:05] VITALS: BP 144/93
--- NOTE | 2020-02-09 22:06 | Event Note ---
ED Screening Note Date of service: 02/09/20 Time: 22:01 ED Screening Note: 39 y/o male comes in for abd pain recently discharge from hospital 02/06/20 for pancreatic. This initial assessment/diagnostic orders/clinical plan/treatment(s) is/are subject to change based on patients health status, clinical progression and re- assessment by fellow clinical providers in the ED. Further treatment and workup at subsequent clinical providers discretion. Patient/guardian urged not to elope from the ED as their condition may be serious if not clinically assessed and managed. Initial orders include:
--- NOTE | 2020-02-09 22:17 | Emergency Department Report ---
ED Shortness of Breath HPI - General Chief Complaint: Dyspnea/Respdistress Stated Complaint: JOSE ANTONIO/ABD PAIN Time Seen by Provider: 02/09/20 21:58 Source: patient Mode of arrival: Ambulatory Limitations: No Limitations - History of Present Illness Initial Comments: Patient is a 39-year-old male that presents emergency room with complaints of asthmatic breathing and difficulty taking a deep breath. Patient denies cough. Patient denies fever and chills. Patient denies chest pain. Patient states that when he was taking the steroids he felt better. Patient states he has an asthma inhaler which is helping. Patient denies fever and chills. Patient denies cough. Patient denies fatigue. Patient denies recent travel. Patient denies recent international travel. Patient denies exposure to the novel coronavirus. Patient denies sick contacts. Patient denies fever and chills. Patient denies cough. Patient denies diarrhea. Patient denies coming in contact with anybody with symptoms of the novel coronavirus. Patient states he has been here multiple times over the past 2 months. Patient states that he most recently was here for abdominal pain and found to have pancreatitis. Patient was admitted and discharged home with oxycodone. Patient states he ran out of that medication. Patient states the abdominal pain is getting better but would like a refill until he can have time to go follow-up with his primary care or at the specialist. MD Complaint: shortness of breath, "asthma attack", anxiety -: Sudden Consistency: constant Improves With: rest, bronchodilators Worsens With: exertion Context: recent URI Treatments Prior to Arrival: none - Related Data Home Oxygen Therapy: No Previous Rx's Medication Instructions Recorded Last Taken Type predniSONE [Deltasone] 20 mg PO BID #10 tab 05/26/17 Unknown Rx Amoxicillin/Potassium Clav 1 each PO BID 10 Days #20 tablet 12/10/19 Unknown Rx [Augmentin 875-125 Tablet] Ibuprofen [Motrin 800 MG tab] 800 mg PO Q8HR PRN #30 tablet 12/10/19 Unknown Rx predniSONE [Deltasone] 40 mg PO QDAY 5 Days #10 tab 12/10/19 Unknown Rx Albuterol INH(or & Nicu Only) 2 puff IH QID PRN #8.5 gram 01/21/20 Unknown Rx [ProAir HFA Inhaler] Benzonatate [Tessalon Perles] 100 mg PO Q8HR #30 capsule 01/21/20 Unknown Rx Cetirizine HCl [Zyrtec 10mg tab] 10 mg PO DAILY #30 tablet 01/21/20 Unknown Rx Ibuprofen [Motrin 600 MG tab] 600 mg PO Q8H PRN #30 tablet 01/21/20 Unknown Rx Prednisone [predniSONE 10 mg 10 mg PO .TAPER #21 tab.ds.pk 01/21/20 Unknown Rx (6-Day Pack, 21 Tabs)] Albuterol INH(or & Nicu Only) 2 puff IH QID PRN #8.5 gram 02/06/20 Unknown Rx [ProAir HFA Inhaler] Montelukast [Singulair] 10 mg PO QPM #30 tablet 02/06/20 Unknown Rx Doxycycline Hyclate 100 mg PO Q12H #20 tablet.dr 02/09/20 Unknown Rx methylPREDNISolone [Medrol 4MG 4 mg PO DAILY #1 tab.ds.pk 02/09/20 Unknown Rx DOSEPAK (21 tabs)] oxyCODONE /ACETAMINOPHEN [Percocet 1 tab PO Q4HR #12 tab 02/09/20 Unknown Rx 5/325 mg] Allergies Allergy/AdvReac Type Severity Reaction Status Date / Time No Known Allergies Allergy Verified 12/26/19 15:41 ED Review of Systems ROS: Stated complaint: JOSE ANTONIO/ABD PAIN Other details as noted in HPI Comment: All other systems reviewed and negative ED Past Medical Hx - Past Medical History Previous Medical History?: Yes Hx Asthma: Yes Additional medical history: gout, Bronchitis, pancreatitis - Surgical History Past Surgical History?: No - Family History Family history: no significant - Social History Smoking Status: Former Smoker Substance Use Type: Alcohol - Medications Home Medications: Home Medications Medication Instructions Recorded Confirmed Last Taken Type predniSONE [Deltasone] 20 mg PO BID #10 tab 05/26/17 Unknown Rx Amoxicillin/Potassium Clav 1 each PO BID 10 Days #20 tablet 12/10/19 Unknown Rx [Augmentin 875-125 Tablet] Ibuprofen [Motrin 800 MG tab] 800 mg PO Q8HR PRN #30 tablet 12/10/19 Unknown Rx predniSONE [Deltasone] 40 mg PO QDAY 5 Days #10 tab 12/10/19 Unknown Rx Albuterol INH(or & Nicu Only) 2 puff IH QID PRN #8.5 gram 01/21/20 Unknown Rx [ProAir HFA Inhaler] Benzonatate [Tessalon Perles] 100 mg PO Q8HR #30 capsule 01/21/20 Unknown Rx Cetirizine HCl [Zyrtec 10mg tab] 10 mg PO DAILY #30 tablet 01/21/20 Unknown Rx Ibuprofen [Motrin 600 MG tab] 600 mg PO Q8H PRN #30 tablet 01/21/20 Unknown Rx Prednisone [predniSONE 10 mg 10 mg PO .TAPER #21 tab.ds.pk 01/21/20 Unknown Rx (6-Day Pack, 21 Tabs)] Albuterol INH(or & Nicu Only) 2 puff IH QID PRN #8.5 gram 02/06/20 Unknown Rx [ProAir HFA Inhaler] Montelukast [Singulair] 10 mg PO QPM #30 tablet 02/06/20 Unknown Rx Doxycycline Hyclate 100 mg PO Q12H #20 tablet.dr 02/09/20 Unknown Rx methylPREDNISolone [Medrol 4MG 4 mg PO DAILY #1 tab.ds.pk 02/09/20 Unknown Rx DOSEPAK (21 tabs)] oxyCODONE /ACETAMINOPHEN [Percocet 1 tab PO Q4HR #12 tab 02/09/20 Unknown Rx 5/325 mg] ED Physical Exam - General Limitations: No Limitations General appearance: alert, in no apparent distress - Head Head exam: Present: atraumatic, normocephalic - Eye Eye exam: Present: normal appearance, PERRL Pupils: Present: normal accommodation - ENT ENT exam: Present: mucous membranes moist, other (Bilateral maxillary sinus tenderness noted.) - Neck Neck exam: Present: normal inspection - Respiratory Respiratory exam: Present: normal lung sounds bilaterally. Absent: respiratory distress, wheezes, rales - Cardiovascular Cardiovascular Exam: Present: regular rate, normal rhythm. Absent: systolic murmur, diastolic murmur, rubs, gallop - GI/Abdominal GI/Abdominal exam: Present: soft, normal bowel sounds. Absent: distended, tenderness, guarding - Rectal Rectal exam: Present: deferred - Extremities Exam Extremities exam: Present: normal inspection - Back Exam Back exam: Present: normal inspection - Neurological Exam Neurological exam: Present: alert, oriented X3 - Psychiatric Psychiatric exam: Present: anxious - Skin Skin exam: Present: warm, dry, intact, normal color. Absent: rash ED Course Vital Signs 02/09/20 21:58 Temperature 97.8 F Pulse Rate 100 H Respiratory 20 Rate Blood Pressure 144/93 O2 Sat by Pulse 99 Oximetry - Reevaluation(s) Reevaluation #1: I discussed all clinical findings with patient. I discussed plan of care with patient. Patient agrees with plan of care. Patient is stable for discharge. Patient will be discharged home. Patient given discharge instructions. Patient voiced understanding of discharge instructions. 02/09/20 22:15 ED Medical Decision Making - Medical Decision Making Patient is a 39-year-old male who presents emergency room with complaints of difficulties breathing and abdominal pain. Patient abdominal pain is actually improved from his previous visit where he was found to have pancreatitis. Patient just requested a refill of his pain medication so that he can make it to his follow-up appointment with his primary care and specialist. Patient states his pain is dramatically better from when he was discharged. Patient's clinical findings are consistent with a sinus infection. Patient will be given antibiotics and steroids. Patient's lung sounds are clear. Patient given discharge instructions. Patient instructed to follow-up with his primary care soon as possible. - Differential Diagnosis Sinusitis, URI, asthma, bronchitis, abdominal pain. Critical care attestation.: If time is entered above; I have spent that time in minutes in the direct care of this critically ill patient, excluding procedure time. ED Disposition Clinical Impression: Sinusitis Qualifiers: Sinusitis location: maxillary Chronicity: acute Recurrence: non-recurrent Qualified Code(s): J01.00 - Acute maxillary sinusitis, unspecified Abdominal pain Qualifiers: Abdominal location: generalized Qualified Code(s): R10.84 - Generalized abdominal pain Disposition: DC-01 TO HOME OR SELFCARE Is pt being admited?: No Does the pt Need Aspirin: No Condition: Stable Instructions: Sinusitis (ED), Pancreatitis (ED) Additional Instructions: Patient to follow-up with primary care in 2 to 3 days. Patient to follow-up with gastroenterology in 2 to 3 days. Patient to rest. Patient to increase water. Patient to avoid fatty foods and alcohol. Patient to take Tylenol or ibuprofen as needed for pain. Patient to take meds as directed. Patient to return to the ER if condition worsens, changes or new symptoms arise. Prescriptions: Doxycycline Hyclate 100 mg PO Q12H #20 tablet. methylPREDNISolone [Medrol 4MG DOSEPAK (21 tabs)] 4 mg PO DAILY #1 tab.ds.pk oxyCODONE /ACETAMINOPHEN [Percocet 5/325 mg] 1 tab PO Q4HR #12 tab Referrals: ROSSANA CALLES MD [Staff Physician] - 2-3 Days Time of Disposition: 22:19
== END 2020-02-09 22:28 | disposition home or self-care (01) ==
LOC: ED 21:51
DX: J32.9 Chronic sinusitis, unspecified (principal); R10.9 Unspecified abdominal pain; J45.909 Unspecified asthma, uncomplicated; K85.90 Acute pancreatitis without necrosis or infection, unspecified; M10.9 Gout, unspecified; Z87.891 Personal history of nicotine dependence; Z79.1 Long term (current) use of non-steroidal anti-inflammatories (NSAID); Z79.899 Other long term (current) drug therapy
CPT/HCPCS: 99282

== ENCOUNTER 2020-04-25 13:47 | Emergency (ER) | payer SELFPAY ==
[2020-04-25 15:20] VITALS: BP 143/87
[2020-04-25] MEDS ORDERED: dexAMETHasone 20 MG/5 ML VIAL IM ONE (15:57)
[2020-04-25] MEDS ORDERED: IPRATROPIUM 0.02% NEBU 2.5 ML IH ONE (15:57)
[2020-04-25] MEDS ORDERED: ALBUTEROL 2.5 MG/3 ML NEBU IH ONE (15:57)
--- NOTE | 2020-04-25 15:59 | Event Note ---
ED Screening Note ED Screening Note: Asthma exacerbation began 2 days ago Uses an albuterol inhaler Has an associated cough No fever, no vomiting, no diarrhea occasional smoker This initial assessment/diagnostic orders/clinical plan/treatment(s) is/are subject to change based on patients health status, clinical progression and re- assessment by fellow clinical providers in the ED. Further treatment and workup at subsequent clinical providers discretion. Patient/guardian urged not to elope from the ED as their condition may be serious if not clinically assessed and managed. Initial orders include: Wheezing and rhonchi diffusely on exam Nebs and steroids ordered Chest x-ray ordered Patient sent to [facility]
--- NOTE | 2020-04-25 16:50 | Emergency Department Report ---
ED Asthma HPI - General Chief Complaint: Dyspnea/Respdistress Stated Complaint: ASTHMA/SOB/CONGESTION Time Seen by Provider: 04/25/20 15:55 Source: patient Mode of arrival: Ambulatory Limitations: No Limitations - History of Present Illness Initial Comments: This is a 39-year-old male nontoxic, well nourished in appearance, no acute signs of distress presents to the ED with c/o of acute on chronic asthma exacerbation. Patient also stated has a dry nonproductivce cough. Patient denies any sick contact. Patient denies any recent travels, long car, recent hospital stays. Patient denies any calf pain or calf tenderness. Patient denies any chest pain, fever, chills, nausea, vomiting, hemoptysis, numbness, tingling, headache or stiff neck. Past medical history includes asthma. MD Complaint: "asthma attack", shortness of breath, wheezing -: days(s) Asthma History: childhood onset Severity: mild Context: none known Associated Symptoms: dry cough Treatments Prior to Arrival: inhaled bronchodilator - Related Data Current Asthma Therapy: inhaled bronchodilator Previous Rx's Medication Instructions Recorded Last Taken Type predniSONE [Deltasone] 20 mg PO BID #10 tab 05/26/17 Unknown Rx Amoxicillin/Potassium Clav 1 each PO BID 10 Days #20 tablet 12/10/19 Unknown Rx [Augmentin 875-125 Tablet] Ibuprofen [Motrin 800 MG tab] 800 mg PO Q8HR PRN #30 tablet 12/10/19 Unknown Rx Albuterol Mdi (or & Nicu Only) 2 puff IH QID PRN #8.5 gram 01/21/20 Unknown Rx [ProAir HFA Inhaler] Cetirizine HCl [Zyrtec 10mg tab] 10 mg PO DAILY #30 tablet 01/21/20 Unknown Rx Ibuprofen [Motrin 600 MG tab] 600 mg PO Q8H PRN #30 tablet 01/21/20 Unknown Rx Montelukast [Singulair] 10 mg PO QPM #30 tablet 02/06/20 Unknown Rx Doxycycline Hyclate 100 mg PO Q12H #20 tablet. 02/09/20 Unknown Rx methylPREDNISolone [Medrol 4MG 4 mg PO DAILY #1 tab.ds.pk 02/09/20 Unknown Rx DOSEPAK (21 tabs)] oxyCODONE /ACETAMINOPHEN [Percocet 1 tab PO Q4HR #12 tab 02/09/20 Unknown Rx 5/325 mg] Amoxicillin/Potassium Clav 1 each PO Q12H #20 tablet 03/31/20 Unknown Rx [Augmentin 875-125 Tablet] Prednisone [predniSONE 10 mg 10 mg PO .TAPER #21 tab.ds.pk 03/31/20 Unknown Rx (6-Day Pack, 21 Tabs)] Albuterol Mdi (or & Nicu Only) 2 puff IH QID PRN #8.5 gram 04/16/20 Unknown Rx [ProAir HFA Inhaler] Azithromycin [Zithromax Z-TIFFANY] 250 mg PO DAILY #6 tab 04/16/20 Unknown Rx Benzonatate [Tessalon Perles] 100 mg PO Q8HR #30 capsule 04/16/20 Unknown Rx predniSONE [Deltasone] 40 mg PO QDAY 5 Days #10 tab 04/16/20 Unknown Rx Albuterol Mdi (or & Nicu Only) 2 puff IH QID PRN #8.5 gram 04/25/20 Unknown Rx [ProAir HFA Inhaler] Prednisone [predniSONE 10 mg 10 mg PO .TAPER #1 tab.ds.pk 04/25/20 Unknown Rx (6-Day Pack, 21 Tabs)] Allergies Allergy/AdvReac Type Severity Reaction Status Date / Time No Known Allergies Allergy Verified 04/25/20 15:17 ED Review of Systems ROS: Stated complaint: ASTHMA/SOB/CONGESTION Other details as noted in HPI Constitutional: denies: chills, fever Eyes: denies: eye pain, eye discharge, vision change ENT: denies: ear pain, throat pain Respiratory: shortness of breath, wheezing. denies: cough Cardiovascular: denies: chest pain, palpitations Endocrine: no symptoms reported Gastrointestinal: denies: abdominal pain, nausea, diarrhea Genitourinary: denies: urgency, dysuria Musculoskeletal: denies: back pain, joint swelling, arthralgia Skin: denies: rash, lesions Neurological: denies: headache, weakness, paresthesias Psychiatric: denies: anxiety, depression Hematological/Lymphatic: denies: easy bleeding, easy bruising ED Past Medical Hx - Past Medical History Hx Asthma: Yes Additional medical history: gout, Bronchitis, pancreatitis - Surgical History Past Surgical History?: No - Social History Smoking Status: Current Every Day Smoker Substance Use Type: None - Medications Home Medications: Home Medications Medication Instructions Recorded Confirmed Last Taken Type predniSONE [Deltasone] 20 mg PO BID #10 tab 05/26/17 Unknown Rx Amoxicillin/Potassium Clav 1 each PO BID 10 Days #20 tablet 12/10/19 Unknown Rx [Augmentin 875-125 Tablet] Ibuprofen [Motrin 800 MG tab] 800 mg PO Q8HR PRN #30 tablet 12/10/19 Unknown Rx Albuterol Mdi (or & Nicu Only) 2 puff IH QID PRN #8.5 gram 01/21/20 Unknown Rx [ProAir HFA Inhaler] Cetirizine HCl [Zyrtec 10mg tab] 10 mg PO DAILY #30 tablet 01/21/20 Unknown Rx Ibuprofen [Motrin 600 MG tab] 600 mg PO Q8H PRN #30 tablet 01/21/20 Unknown Rx Montelukast [Singulair] 10 mg PO QPM #30 tablet 02/06/20 Unknown Rx Doxycycline Hyclate 100 mg PO Q12H #20 tablet. 02/09/20 Unknown Rx methylPREDNISolone [Medrol 4MG 4 mg PO DAILY #1 tab.ds.pk 02/09/20 Unknown Rx DOSEPAK (21 tabs)] oxyCODONE /ACETAMINOPHEN [Percocet 1 tab PO Q4HR #12 tab 02/09/20 Unknown Rx 5/325 mg] Amoxicillin/Potassium Clav 1 each PO Q12H #20 tablet 03/31/20 Unknown Rx [Augmentin 875-125 Tablet] Prednisone [predniSONE 10 mg 10 mg PO .TAPER #21 tab.ds.pk 03/31/20 Unknown Rx (6-Day Pack, 21 Tabs)] Albuterol Mdi (or & Nicu Only) 2 puff IH QID PRN #8.5 gram 04/16/20 Unknown Rx [ProAir HFA Inhaler] Azithromycin [Zithromax Z-TIFFANY] 250 mg PO DAILY #6 tab 04/16/20 Unknown Rx Benzonatate [Tessalon Perles] 100 mg PO Q8HR #30 capsule 04/16/20 Unknown Rx predniSONE [Deltasone] 40 mg PO QDAY 5 Days #10 tab 04/16/20 Unknown Rx Albuterol Mdi (or & Nicu Only) 2 puff IH QID PRN #8.5 gram 04/25/20 Unknown Rx [ProAir HFA Inhaler] Prednisone [predniSONE 10 mg 10 mg PO .TAPER #1 tab.ds.pk 04/25/20 Unknown Rx (6-Day Pack, 21 Tabs)] ED Physical Exam - General Limitations: No Limitations General appearance: alert, in no apparent distress - Head Head exam: Present: atraumatic, normocephalic - Eye Eye exam: Present: normal appearance - Neck Neck exam: Present: normal inspection, full ROM. Absent: tenderness, meningismus, lymphadenopathy - Respiratory Respiratory exam: Present: wheezes (diffuse). Absent: respiratory distress, rales, rhonchi, stridor, chest wall tenderness, accessory muscle use, decreased breath sounds, prolonged expiratory - Cardiovascular Cardiovascular Exam: Present: regular rate, normal rhythm, normal heart sounds. Absent: irregular rhythm, systolic murmur, diastolic murmur, rubs, gallop - Extremities Exam Extremities exam: Present: normal inspection, full ROM - Back Exam Back exam: Present: normal inspection, full ROM. Absent: tenderness, CVA tenderness (R), CVA tenderness (L), muscle spasm, paraspinal tenderness, vertebral tenderness, rash noted - Neurological Exam Neurological exam: Present: alert, oriented X3, normal gait - Psychiatric Psychiatric exam: Present: normal affect, normal mood - Skin Skin exam: Present: warm, dry, intact, normal color. Absent: rash ED Course Vital Signs 04/25/20 04/25/20 15:19 15:56 Temperature 97.5 F L 97.5 F L Pulse Rate 91 H 89 Respiratory 22 22 Rate Blood Pressure 143/87 143/87 O2 Sat by Pulse 95 96 Oximetry - Reevaluation(s) Reevaluation #1: 04/25/20 16:49 Patient is speaking in full sentences with no signs of distress noted. ED Medical Decision Making - Radiology Data Referring Physician: ANGEL GANN Patient Name: JOVANNY BLUNT Date of : 1980 Sex: Male Report Date: 2020-04-25 Report Status: Finalized [facility] [address] [place] [address] XRay Report Signed Patient: JOVANNY BLUNT MR#: [id number] 2012 : 1980 Acct:[id number] Age/Sex: 39 / M ADM Date: 04/25/20 Loc: ED Attending Dr: Ordering Physician: JOE MILLER Date of Service: 04/25/20 Procedure(s): XR chest routine 2V Accession Number(s): [id number] cc: JOE MILLER Fluoro Time In Minutes: CHEST PA AND LATERAL VIEWS INDICATION: cough, sob, wheezing. COMPARISON: 04/16/2020 FINDINGS: Support devices: None. Heart: Within normal limits. Lungs/Pleura: No acute pulmonary or pleural findings. IMPRESSION: 1. No acute findings. Signer Name: Daryn Key MD Signed: 04/25/2020 5:11 PM Workstation Name: [id number] Transcribed By: REX Dictated By: Daryn Key MD Electronically Authenticated By: Daryn Key MD Signed Date/Time: 04/25/201710 DD/ 10 TD/TT: - Medical Decision Making This is a 39-year-old male that presents with asthma exacerbation. Patient is stable and was examined by me. Chest x-ray has been obtained and dictated by the radiologist within normal limits. Patient is notified of the x-ray report with no questions noted by the patient. Patient did receive breathing treatment and steroids in the ED which patient the symptoms has resolved and subsided. Posttreatment and there is no wheezing upon auscultation. Patient is discharged with albuterol and prednisone. Patient was referred to Follow-up with a primary care doctor in 3-5 days or if symptoms worsen and continue return to emergency room as soon as possible. At time of discharge, the patient does not seem toxic or ill in appearance. No acute signs of distress noted. Patient agrees to discharge treatment plan of care. No further questions noted by the patient. This chart is dictated with using [employer] Critical care attestation.: If time is entered above; I have spent that time in minutes in the direct care of this critically ill patient, excluding procedure time. ED Disposition Clinical Impression: Asthma exacerbation Qualifiers: Asthma severity: mild Asthma persistence: intermittent Qualified Code(s): J45.21 - Mild intermittent asthma with (acute) exacerbation Disposition: - TO HOME OR SELFCARE Is pt being admited?: No Does the pt Need Aspirin: No Condition: Stable Instructions: Asthma (ED) Additional Instructions: Follow-up with a primary care doctor in 3-5 days or if symptoms worsen and continue return to emergency room as soon as possible. Prescriptions: Prednisone [predniSONE 10 mg (6-Day Pack, 21 Tabs)] 10 mg PO .TAPER #1 tab.ds.pk Albuterol Mdi (or & Nicu Only) [ProAir HFA Inhaler] 2 puff IH QID PRN #8.5 gram PRN Reason: Shortness Of Breath Referrals: PRIMARY CAREMD [Primary Care Provider] - 3-5 Days LIANNE AGRAWAL MD [Staff Physician] - 3-5 Days [facility] [Provider Group] - 3-5 Days Forms: Work/School Release Form(ED)
--- NOTE | 2020-04-25 17:16 | XRay Report ---
CHEST PA AND LATERAL VIEWS INDICATION: cough, sob, wheezing. COMPARISON: 04/16/2020 FINDINGS: Support devices: None. Heart: Within normal limits. Lungs/Pleura: No acute pulmonary or pleural findings. IMPRESSION: 1. No acute findings. Signer Name: Daryn Key MD Signed: 04/25/2020 5:11 PM Workstation Name: [id number]
== END 2020-04-25 18:31 | disposition home or self-care (01) ==
LOC: ED 13:47
DX: J45.901 Unspecified asthma with (acute) exacerbation (principal); F17.200 Nicotine dependence, unspecified, uncomplicated
CPT/HCPCS: 71046; 96372; 99283; J1100

== ENCOUNTER 2020-08-02 07:34 | Inpatient (IN) | payer OTHER, SELFPAY ==
[2020-08-02] MEDS ORDERED: IPRATROPIUM/ALBUTEROL SULFATE 3 ML AMPUL.NEB IH ONE (08:03)
--- NOTE | 2020-08-02 09:02 | XRay Report ---
XR chest routine 2V INDICATION / CLINICAL INFORMATION: SOB, cough, asthma hx COMPARISON: May 16, 2020 FINDINGS: SUPPORT DEVICES: None. HEART / MEDIASTINUM: No significant abnormality. LUNGS / PLEURA: Lungs are clear. Costophrenic sulci are sharp. No pneumothorax. ADDITIONAL FINDINGS: No significant additional findings. IMPRESSION: 1. No acute findings. Signer Name: Frederick Harris MD Signed: 08/02/2020 8:57 AM Workstation Name: [id number]
[2020-08-02] MEDS ORDERED: ALBUTEROL 2.5 MG/3 ML NEBU IH ONE (10:34)
[2020-08-02] MEDS ORDERED: dexAMETHasone 20 MG/5 ML VIAL IV ONE (10:34)
[2020-08-02] MEDS ORDERED: IPRATROPIUM 0.02% NEBU 2.5 ML IH ONE (10:34)
[2020-08-02 11:07] LABS: Basophils % (Auto) 0.3 % (0.0-1.8); Eosinophils # (Auto) 0.4 K/mm3 (0.0-0.4); Eosinophils % (Auto) 3.1 % (0.0-4.3); Hematocrit 39.6 % (35.5-45.6); Hemoglobin 12.5 gm/dl (11.8-15.2); Lymphocytes # (Auto) 2.2 K/mm3 (1.2-5.4); Lymphocytes % (Auto) 15.6 % (13.4-35.0); Mean Corpuscular HGB Conc 32 % (32-34); Monocytes # (Auto) 0.5 K/mm3 (0.0-0.8); Monocytes % (Auto) 3.7 % (0.0-7.3); Platelet Count 247 K/mm3 (140-440); Red Blood Count 6.05 M/mm3 (3.65-5.03); Red Cell Distribution Width 17.3 % (13.2-15.2)
[2020-08-02 11:10] LABS: Mean Corpuscular Volume 65 fl (84-94)
[2020-08-02 11:17] LABS: INR 1.17 (0.87-1.13)
[2020-08-02 11:18] LABS: Partial Thromboplastin Time 36.5 Sec. (24.2-36.6)
[2020-08-02 11:25] LABS: Alanine Aminotransferase 9 units/L (7-56); Albumin 1.3 g/dL (3.9-5); BUN/Creatinine Ratio 11; Blood Urea Nitrogen 9 mg/dL (9-20); Calcium 7.7 mg/dL (8.4-10.2); Hemolysis Index 9
--- NOTE | 2020-08-02 12:24 | Emergency Department Report ---
ED Shortness of Breath HPI - General Chief Complaint: Adult Asthma Stated Complaint: SOB/COUGH/CP Time Seen by Provider: 08/02/20 10:32 Source: patient Mode of arrival: Ambulatory Limitations: No Limitations - History of Present Illness Initial Comments: This is a 39-year-old male nontoxic, well nourished in appearance, with some distress presents to the ED with c/o of wheezing, SOB, and chest thightness that started this morning. Patient stated has cough with loss of smell x several days. Patient denies any sick contact. Patient denies any recent travels, long car, recent hospital stays. Patient denies any calf pain or calf tenderness. Patient denies any fever, chills, nausea, vomiting, hemoptysis, numbness, tingling, headache or stiff neck. Past medical history includes asthma. MD Complaint: shortness of breath, cough, chest pain, "asthma attack" -: days(s) Pain Scale: 3 Consistency: constant Improves With: nothing Worsens With: coughing Known History Of: asthma Associated Symptoms: chest pain, cough, sputum production Treatments Prior to Arrival: none - Related Data Previous Rx's Medication Instructions Recorded Last Taken Type Amoxicillin/Potassium Clav 1 each PO BID 10 Days #20 tablet 12/10/19 Unknown Rx [Augmentin 875-125 Tablet] Ibuprofen [Motrin 800 MG tab] 800 mg PO Q8HR PRN #30 tablet 12/10/19 Unknown Rx Albuterol Mdi (or & Nicu Only) 2 puff IH QID PRN #8.5 gram 01/21/20 Unknown Rx [ProAir HFA Inhaler] Cetirizine HCl [Zyrtec 10mg tab] 10 mg PO DAILY #30 tablet 01/21/20 Unknown Rx Ibuprofen [Motrin 600 MG tab] 600 mg PO Q8H PRN #30 tablet 01/21/20 Unknown Rx Montelukast [Singulair] 10 mg PO QPM #30 tablet 02/06/20 Unknown Rx Doxycycline Hyclate 100 mg PO Q12H #20 tablet.dr 02/09/20 Unknown Rx methylPREDNISolone [Medrol 4MG 4 mg PO DAILY #1 tab.ds.pk 02/09/20 Unknown Rx DOSEPAK (21 tabs)] oxyCODONE /ACETAMINOPHEN [Percocet 1 tab PO Q4HR #12 tab 02/09/20 Unknown Rx 5/325 mg] Amoxicillin/Potassium Clav 1 each PO Q12H #20 tablet 03/31/20 Unknown Rx [Augmentin 875-125 Tablet] Prednisone [predniSONE 10 mg 10 mg PO .TAPER #21 tab.ds.pk 03/31/20 Unknown Rx (6-Day Pack, 21 Tabs)] Albuterol Mdi (or & Nicu Only) 2 puff IH QID PRN #8.5 gram 04/16/20 Unknown Rx [ProAir HFA Inhaler] Azithromycin [Zithromax Z-TIFFANY] 250 mg PO DAILY #6 tab 04/16/20 Unknown Rx Benzonatate [Tessalon Perles] 100 mg PO Q8HR #30 capsule 04/16/20 Unknown Rx predniSONE [Deltasone] 40 mg PO QDAY 5 Days #10 tab 04/16/20 Unknown Rx Albuterol Mdi (or & Nicu Only) 2 puff IH QID PRN #8.5 gram 04/25/20 Unknown Rx [ProAir HFA Inhaler] Prednisone [predniSONE 10 mg 10 mg PO .TAPER #1 tab.ds.pk 04/25/20 Unknown Rx (6-Day Pack, 21 Tabs)] guaiFENesin/CODEINE [Robitussin AC] 5 ml PO Q6H PRN #120 ml 05/10/20 Unknown Rx predniSONE [Deltasone] 50 mg PO QDAY #5 tab 05/10/20 Unknown Rx Albuterol Mdi (or & Nicu Only) 2 puff IH QID PRN #8.5 gram 05/16/20 Unknown Rx [ProAir HFA Inhaler] predniSONE [Deltasone] 20 mg PO BID #8 tab 05/16/20 Unknown Rx Allergies Allergy/AdvReac Type Severity Reaction Status Date / Time No Known Allergies Allergy Verified 04/25/20 15:17 ED Review of Systems ROS: Stated complaint: SOB/COUGH/CP Other details as noted in HPI Comment: All other systems reviewed and negative Constitutional: denies: chills, fever Eyes: denies: eye pain, eye discharge, vision change ENT: congestion. denies: ear pain, throat pain Respiratory: cough, shortness of breath, wheezing Cardiovascular: chest pain. denies: palpitations Endocrine: no symptoms reported Gastrointestinal: denies: abdominal pain, nausea, diarrhea Genitourinary: denies: urgency, dysuria Musculoskeletal: denies: back pain, joint swelling, arthralgia Skin: denies: rash, lesions Neurological: denies: headache, weakness, paresthesias Psychiatric: denies: anxiety, depression Hematological/Lymphatic: denies: easy bleeding, easy bruising ED Past Medical Hx - Past Medical History Previous Medical History?: Yes Hx Asthma: Yes Additional medical history: gout, Bronchitis, pancreatitis - Social History Smoking Status: Current Every Day Smoker Substance Use Type: None - Medications Home Medications: Home Medications Medication Instructions Recorded Confirmed Last Taken Type Amoxicillin/Potassium Clav 1 each PO BID 10 Days #20 tablet 12/10/19 Unknown Rx [Augmentin 875-125 Tablet] Ibuprofen [Motrin 800 MG tab] 800 mg PO Q8HR PRN #30 tablet 12/10/19 Unknown Rx Albuterol Mdi (or & Nicu Only) 2 puff IH QID PRN #8.5 gram 01/21/20 Unknown Rx [ProAir HFA Inhaler] Cetirizine HCl [Zyrtec 10mg tab] 10 mg PO DAILY #30 tablet 01/21/20 Unknown Rx Ibuprofen [Motrin 600 MG tab] 600 mg PO Q8H PRN #30 tablet 01/21/20 Unknown Rx Montelukast [Singulair] 10 mg PO QPM #30 tablet 02/06/20 Unknown Rx Doxycycline Hyclate 100 mg PO Q12H #20 tablet.dr 02/09/20 Unknown Rx methylPREDNISolone [Medrol 4MG 4 mg PO DAILY #1 tab.ds.pk 02/09/20 Unknown Rx DOSEPAK (21 tabs)] oxyCODONE /ACETAMINOPHEN [Percocet 1 tab PO Q4HR #12 tab 02/09/20 Unknown Rx 5/325 mg] Amoxicillin/Potassium Clav 1 each PO Q12H #20 tablet 03/31/20 Unknown Rx [Augmentin 875-125 Tablet] Prednisone [predniSONE 10 mg 10 mg PO .TAPER #21 tab.ds.pk 03/31/20 Unknown Rx (6-Day Pack, 21 Tabs)] Albuterol Mdi (or & Nicu Only) 2 puff IH QID PRN #8.5 gram 04/16/20 Unknown Rx [ProAir HFA Inhaler] Azithromycin [Zithromax Z-TIFFANY] 250 mg PO DAILY #6 tab 04/16/20 Unknown Rx Benzonatate [Tessalon Perles] 100 mg PO Q8HR #30 capsule 04/16/20 Unknown Rx predniSONE [Deltasone] 40 mg PO QDAY 5 Days #10 tab 04/16/20 Unknown Rx Albuterol Mdi (or & Nicu Only) 2 puff IH QID PRN #8.5 gram 04/25/20 Unknown Rx [ProAir HFA Inhaler] Prednisone [predniSONE 10 mg 10 mg PO .TAPER #1 tab.ds.pk 04/25/20 Unknown Rx (6-Day Pack, 21 Tabs)] guaiFENesin/CODEINE [Robitussin AC] 5 ml PO Q6H PRN #120 ml 05/10/20 Unknown Rx predniSONE [Deltasone] 50 mg PO QDAY #5 tab 05/10/20 Unknown Rx Albuterol Mdi (or & Nicu Only) 2 puff IH QID PRN #8.5 gram 05/16/20 Unknown Rx [ProAir HFA Inhaler] predniSONE [Deltasone] 20 mg PO BID #8 tab 05/16/20 Unknown Rx ED Physical Exam - General Limitations: No Limitations General appearance: alert, in no apparent distress - Head Head exam: Present: atraumatic, normocephalic - Eye Eye exam: Present: normal appearance - Neck Neck exam: Present: normal inspection, full ROM. Absent: tenderness, meningismus, lymphadenopathy - Respiratory Respiratory exam: Present: respiratory distress, wheezes. Absent: rales, rhonchi, stridor, chest wall tenderness, accessory muscle use, decreased breath sounds, prolonged expiratory - Cardiovascular Cardiovascular Exam: Present: tachycardia, normal heart sounds. Absent: irregular rhythm, systolic murmur, diastolic murmur, rubs, gallop - Extremities Exam Extremities exam: Present: normal inspection, full ROM - Back Exam Back exam: Present: normal inspection, full ROM. Absent: tenderness, CVA tenderness (R), CVA tenderness (L), muscle spasm, paraspinal tenderness, vertebral tenderness, rash noted - Neurological Exam Neurological exam: Present: alert, oriented X3, normal gait - Psychiatric Psychiatric exam: Present: normal affect, normal mood - Skin Skin exam: Present: warm, dry, intact, normal color. Absent: rash ED Course Vital Signs 08/02/20 08/02/20 08/02/20 07:53 08:10 15:12 Temperature 98.6 F Pulse Rate 101 H Pulse Rate [ 100 H Bilateral] Respiratory 22 18 Rate Respiratory 18 Rate [Bilateral ] Blood Pressure 130/79 [Right] O2 Sat by Pulse 91 91 Oximetry - Reevaluation(s) Reevaluation #1: 08/02/20 12:25 Patient is speaking in full sentences with some distress noted. Reevaluation #2: 08/02/20 15:12 Ambulatory sats ranged from 88 to 91%. - Consultations Consultation #1: 08/02/20 15:12 Patient has been consulted with Dr. Jackson (hospitalist) about patient history, physical exam, and labs/CT results and accepts patient to services. Consultation #2: 08/02/20 15:[address] Trujillo and agrees for admission. ED Medical Decision Making - Lab Data Result diagrams: 08/02/20 10:47 08/02/20 10:47 Lab Results 08/02/20 08/02/20 08/02/20 Range/Units 10:47 10:47 10:47 WBC 14.2 H (4.5-11.0) K/mm3 RBC 6.05 H (3.65-5.03) M/mm3 Hgb 12.5 (11.8-15.2) gm/dl Hct 39.6 (35.5-45.6) % MCV 65 L (84-94) fl MCH 21 L (28-32) pg MCHC 32 (32-34) % RDW 17.3 H (13.2-15.2) % Plt Count 247 (140-440) K/mm3 Lymph % (Auto) 15.6 (13.4-35.0) % Schley % (Auto) 3.7 (0.0-7.3) % Eos % (Auto) 3.1 (0.0-4.3) % Baso % (Auto) 0.3 (0.0-1.8) % Lymph # (Auto) 2.2 (1.2-5.4) K/mm3 Schley # (Auto) 0.5 (0.0-0.8) K/mm3 Eos # (Auto) 0.4 (0.0-0.4) K/mm3 Baso # (Auto) 0.0 (0.0-0.1) K/mm3 Seg Neutrophils % 77.3 H (40.0-70.0) % Seg Neutrophils # 11.0 H (1.8-7.7) K/mm3 PT 15.0 H (12.2-14.9) Sec. INR 1.17 H (0.87-1.13) APTT 36.5 (24.2-36.6) Sec. D-Dimer 967.21 H (0-234) ng/mlDDU Sodium 138 (137-145) mmol/L Potassium 4.1 (3.6-5.0) mmol/L Chloride 101.7 (98-107) mmol/L BUN 9 (9-20) mg/dL Creatinine 0.8 (0.8-1.3) mg/dL Estimated GFR > 60 ml/min BUN/Creatinine Ratio 11 % Glucose 104 H (75-100) mg/dL Calcium 7.7 L (8.4-10.2) mg/dL Total Bilirubin 0.20 (0.1-1.2) mg/dL AST 13 (5-40) units/L ALT 9 (7-56) units/L Alkaline Phosphatase 82 (35-129) units/L Troponin T (0.00-0.029) ng/mL Total Protein 5.9 L (6.3-8.2) g/dL Albumin 1.3 L (3.9-5) g/dL Albumin/Globulin Ratio 0.3 % 10/13/20 Range/Units 10:47 WBC (4.5-11.0) K/mm3 RBC (3.65-5.03) M/mm3 Hgb (11.8-15.2) gm/dl Hct (35.5-45.6) % MCV (84-94) fl MCH (28-32) pg MCHC (32-34) % RDW (13.2-15.2) % Plt Count (140-440) K/mm3 Lymph % (Auto) (13.4-35.0) % Schley % (Auto) (0.0-7.3) % Eos % (Auto) (0.0-4.3) % Baso % (Auto) (0.0-1.8) % Lymph # (Auto) (1.2-5.4) K/mm3 Schley # (Auto) (0.0-0.8) K/mm3 Eos # (Auto) (0.0-0.4) K/mm3 Baso # (Auto) (0.0-0.1) K/mm3 Seg Neutrophils % (40.0-70.0) % Seg Neutrophils # (1.8-7.7) K/mm3 PT (12.2-14.9) Sec. INR (0.87-1.13) APTT (24.2-36.6) Sec. D-Dimer (0-234) ng/mlDDU Sodium (137-145) mmol/L Potassium (3.6-5.0) mmol/L Chloride (98-107) mmol/L BUN (9-20) mg/dL Creatinine (0.8-1.3) mg/dL Estimated GFR ml/min BUN/Creatinine Ratio % Glucose (75-100) mg/dL Calcium (8.4-10.2) mg/dL Total Bilirubin (0.1-1.2) mg/dL AST (5-40) units/L ALT (7-56) units/L Alkaline Phosphatase (35-129) units/L Troponin T < 0.010 (0.00-0.029) ng/mL Total Protein (6.3-8.2) g/dL Albumin (3.9-5) g/dL Albumin/Globulin Ratio % - EKG Data 08/02/20 13:29 Normal sinus rhythm at [address] or T wave abnormalities. Reviewed and signed by . - Radiology Data Referring Physician: SHANTELLE HONG Patient Name: JOVANNY BLUNT Date of : 1980 Sex: Male Report Date: 2020-08-02 Report Status: Finalized [facility] [address] [place] [address] Cat Scan Report Signed Patient: JOVANNY BLUNT MR#: [id number] 2012 : 1980 Acct:[id number] Age/Sex: 39 / M ADM Date: 08/02/20 Loc: ED Attending Dr: Ordering Physician: SHANTELLE HONG NP Date of Service: 08/02/20 Procedure(s): CT angio chest Accession Number(s): [id number] cc: SHANTELLE HONG NP CTA of the chest with 3D Reconstruction Indication: ,SOB Technique: TECHNIQUE: Axial CT images were obtained through the chest after injection of 90 cc of Omnipaque 350 IV contrast. 3 plane MIP reconstructions were produced. All CT scans at this location are performed using CT dose reduction for ALARA by means of automated exposure control. COMPARISON: 05/16/2020, CT scan Automatic exposure control was utilized in an attempt to reduce radiation dose. Findings: Pulmonary arteries: The main pulmonary artery and right and left pulmonary artery branches fill satisfactorily with contrast. No pulmonary embolus is seen. Lungs: There are patchy groundglass opacities noted in the lower lobes,, right middle lobe, in the upper lobes including the lingula. This could represent asymmetric edema. This could represent an atypical pneumonia including viral pneumonia. Mediastinum: There is mild mediastinal adenopathy. Right and left paratracheal nodes, left periaortic nodes, hilar nodes and axillary nodes are increased in number and are mildly enlarged. The appearance is similar to the prior study. Aorta: Normal in diameter. No dissection seen within limits of this exam. No acute abnormality is seen in the upper abdomen. Impression: 1. No pulmonary embolus is seen 2. There are patchy groundglass opacities noted in both lungs which could represent asymmetric edema. Possibility of an atypical pneumonia is included in the differential diagnosis 3. Mild nonspecific adenopathy appears unchanged from the prior study. The etiology is not determined by this exam. Signer Name: Fernando Valladares MD Signed: 08/02/2020 2:12 PM Workstation Name: [id number] Transcribed By: SS Dictated By: Fernando Valladares MD Electronically Authenticated By: Fernando Valladares MD Signed Date/Time: 08/02/20 1412 DD/ 1406 TD/TT: Referring Physician: ED DOC Patient Name: JOVANNY BLUNT Date of : 1980 Sex: Male Report Date: 2020-08-02 Report Status: Finalized [facility] [address] [place] [address] XRay Report Signed Patient: JOVANNY BLUNT MR#: [id number] 2012 : 1980 Acct:[id number] Age/Sex: 39 / M ADM Date: 08/02/20 Loc: ED Attending Dr: Ordering Physician: CHAYO ZHU MD Date of Service: 08/02/20 Procedure(s): XR chest routine 2V Accession Number(s): [id number] cc: CHAYO ZHU MD Fluoro Time In Minutes: XR chest routine 2V INDICATION / CLINICAL INFORMATION: SOB, cough, asthma hx COMPARISON: May 16, 2020 FINDINGS: SUPPORT DEVICES: None. HEART / MEDIASTINUM: No significant abnormality. LUNGS / PLEURA: Lungs are clear. Costophrenic sulci are sharp. No pneumothorax. ADDITIONAL FINDINGS: No significant additional findings. IMPRESSION: 1. No acute findings. Signer Name: Frederick Harris MD Signed: 08/02/2020 8:57 AM Workstation Name: [id number] Transcribed By: JUAN Dictated By: Frederick Harris MD Electronically Authenticated By: Frederick Harris MD Signed Date/Time: 08/02/20856 DD/ 6 TD/TT: - Medical Decision Making This is a 39-year-old male that presents with suspected COVID, hypoxia and whe ezing. Patient is stable and was examined by me. Patient admitted with hospitalist Dr. Jackson. Despite giving treatment in the ER patient sats are still 88 to 91%. Patient is still complaining of shortness of breath. Patient is notified of the CT and labs with no questions noted by the patient. At time of admission, the patient does not seem toxic or ill in appearance. No acute signs of distress noted. Patient agrees to admission treatment plan of care. No further questions noted by the patient. - Differential Diagnosis PE, asthma exacerbation, COVID, bronchitis, pneumonia Critical care attestation.: If time is entered above; I have spent that time in minutes in the direct care of this critically ill patient, excluding procedure time. ED Disposition Clinical Impression: Hypoxia, Suspected COVID-19 virus infection PNA (pneumonia) Qualifiers: Pneumonia type: due to unspecified organism Laterality: bilateral Lung location: unspecified part of lung Qualified Code(s): J18.9 - Pneumonia, unspecified organism Disposition: OP ADMIT IP TO THIS HOSP Is pt being admited?: Yes Condition: Stable
[2020-08-02] MEDS ORDERED: MAGNESIUM SULFATE 2 GM/50 ML BAG IV ONE (14:03)
--- NOTE | 2020-08-02 14:17 | Cat Scan Report ---
CTA of the chest with 3D Reconstruction Indication: ,SOB Technique: TECHNIQUE: Axial CT images were obtained through the chest after injection of 90 cc of Omnipaque 350 IV contrast. 3 plane MIP reconstructions were produced. All CT scans at this location are performed u [facility] CT dose reduction for VERONICA by means of automated exposure control. COMPARISON: 05/16/2020, CT scan Automatic exposure control was utilized in an attempt to reduce radiation dose. Findings: Pulmonary arteries: The main pulmonary artery and right and left pulmonary artery branches fill satis factorily with contrast. No pulmonary embolus is seen. Lungs: There are patchy groundglass opacities noted in the lower lobes,, right middle lobe, in the up per lobes including the lingula. This could represent asymmetric edema. This could represent an atypi clotilde pneumonia including viral pneumonia. Mediastinum: There is mild mediastinal adenopathy. Right and left paratracheal nodes, left periaortic nodes, hilar nodes and axillary nodes are increased in number and are mildly enlarged. The appearanc e is similar to the prior study. Aorta: Normal in diameter. No dissection seen within limits of this exam. No acute abnormality is seen in the upper abdomen. Impression: 1. No pulmonary embolus is seen 2. There are patchy groundglass opacities noted in both lungs which could represent asymmetric edema. Possibility of an atypical pneumonia is included in the differential diagnosis 3. Mild nonspecific adenopathy appears unchanged from the prior study. The etiology is not determined by this exam. Signer Name: Fernando Valladares MD Signed: 08/02/2020 2:12 PM Workstation Name: [id number]
[2020-08-02 14:38] LABS: ABG Base Excess 1.2 mmol/L (-2.0-3.0); ABG HCO3 25.3 mmol/L (20.0-26.0); ABG Methemoglobin 0.6 % (0.0-1.5); ABG PCO2 38.3 mm Hg; ABG PH 7.438 pH Units (7.350-7.450); ABG PO2 77.1 mm Hg (80.0-90.0)
[2020-08-02] MEDS ORDERED: AZITHROMYCIN 500 MG in SODIUM CHLORIDE 0.9% 250ML 250 ML IV ONE (15:13)
[2020-08-02] MEDS ORDERED: ACETAMINOPHEN 325 MG TAB PO PRN (15:15)
[2020-08-02] MEDS ORDERED: ONDANSETRON 4 MG/2 ML INJ IV PRN (15:15)
--- NOTE | 2020-08-02 15:19 | History and Physical Report ---
History of Present Illness Chief complaint: Its hard to breathe History of present illness: 39 YO Male with Mild Intermittent Asthma, Nicotine Dependence, ETOH Dependence complicated by Pancreatitis presents to ED for evaluation. Pt states that he has experienced shortness of breath over the past 5 days with persistently worsening symptoms over the same timeframe. Patient knowledges decreased exercise tolerance, dyspnea on exertion as well as dyspnea at rest. Patient also acknowledges dry cough, loss of smell and taste. Patient transported to [facility] via private vehicle for further care and evaluation. Pt seen and evaluated in the emergency department. Lab and imaging studies reviewed. Patient underwent CT scan of the chest and was found to have bilateral pneumonia as well as systemic inflammatory response syndrome. Patient also found to have a pulse oximetry of 86% with exertion which is consistent with acute hypoxemic respiratory failure. Patient initiated on pneumonia protocol as well as initiated on COVID-19 protocol. Patient treated with IV antibiotic therapy as well as IV steroid therapy and admitted to medical floor due to increased risk of decompensation. Patient denies fever, chills, chest pain, palpitations, productive cough, skin rash, or known ill contacts, or known exposure COVID-19. Prior admission on 02/06/2020 reviewed. All medication listed at time of admission has been rec onciled. Past History Past Medical History: other (See HPI) Past Surgical History: No surgical history, Other (Reviewed) Social history: smoking, alcohol abuse Family history: hypertension Medications and Allergies Allergies Allergy/AdvReac Type Severity Reaction Status Date / Time No Known Allergies Allergy Verified 04/25/20 15:17 Home Medications Medication Instructions Recorded Confirmed Last Taken Type ALBUTEROL NEB's [Proventil 0.083% 2.5 mg IH TID PRN 08/02/20 08/02/20 Unknown History NEBS] Furosemide [Lasix TAB] 40 mg PO DAILY 08/02/20 08/02/20 Unknown History Lisinopril 20 mg PO BID 08/02/20 08/02/20 Unknown History Active Meds: Active Medications Ceftriaxone Sodium 500 mg/ (Sodium Chloride) 50 mls @ 100 mls/hr IV ONCE ONE; Protocol Stop: 08/02/20 15:42 Azithromycin 500 mg/ Sodium (Chloride) 250 mls @ 250 mls/hr IV ONCE ONE; Protocol Stop: 08/02/20 16:12 Review of Systems Constitutional: weakness, malaise, lethargy, no weight loss, no weight gain, no fever, no chills Ears, nose, mouth and throat: other (Loss of sensation of smell and taste), no ear pain, no ear discharge, no tinnitis, no decreased hearing, no nose pain Cardiovascular: no chest pain, no orthopnea, no palpitations, no rapid/irregular heart beat Respiratory: shortness of breath, no cough with sputum, no excessive sputum, no sleep apnea Gastrointestinal: no nausea, no vomiting, no diarrhea, no constipation Genitourinary Male: no hematuria, no flank pain, no discharge, no urinary frequency, no urinary hesitancy Rectal: no pain, no incontinence, no bleeding Musculoskeletal: no neck stiffness, no arm numbness/tingling, no low back pain, no shooting leg pain, no leg numbness/tingling Integumentary: no rash, no redness, no sores, no wounds, no jaundice Neurological: no head injury, no transient paralysis, no paralysis, no weakness, no parathesias, no numbness, no seizures, no ataxia Psychiatric: no anxiety, no memory loss, no hypersomnia, no change in appetite, no suicidal ideation, no disorientation Endocrine: no cold intolerance, no heat intolerance, no polyphagia, no nocturia Hematologic/Lymphatic: no easy bruising, no easy bleeding Allergic/Immunologic: no allergic rhinitis, no wheezing Exam - Constitutional Vitals: Temp Pulse Resp BP Pulse Ox 98.6 F 100 H 18 130/79 91 08/02/20 07:53 08/02/20 08:10 08/02/20 15:12 08/02/20 07:53 08/02/20 15:12 General appearance: Present: mild distress - EENT Eyes: Present: PERRL ENT: hearing intact, clear oral mucosa - Neck Neck: Present: supple, normal ROM - Respiratory Respiratory effort: labored, accessory muscle use, stridor Respiratory: bilateral: diminished, rhonchi - Cardiovascular Heart Sounds: Present: S1 & S2. Absent: rub, click - Extremities Extremities: pulses symmetrical, No edema Peripheral Pulses: within normal limits - Abdominal General gastrointestinal: Present: soft, non-tender, non-distended, normal bowel sounds Male genitourinary: Present: normal - Integumentary Integumentary: Present: clear, warm, dry - Musculoskeletal Musculoskeletal: gait normal, strength equal bilaterally - Psychiatric Psychiatric: appropriate mood/affect, intact judgment & insight - Neurologic Neurologic: CNII-XII intact, moves all extremities HEART Score - HEART Score Troponin: Troponin T < 0.010 ng/mL (0.00-0.029) 08/02/20 10:47 Results - Labs CBC & Chem 7: 08/02/20 10:47 08/02/20 15:23 Labs: Abnormal lab results 08/02/20 08/02/20 08/02/20 Range/Units 10:47 10:47 10:47 WBC 14.2 H (4.5-11.0) K/mm3 RBC 6.05 H (3.65-5.03) M/mm3 MCV 65 L (84-94) fl MCH 21 L (28-32) pg RDW 17.3 H (13.2-15.2) % Seg Neutrophils % 77.3 H (40.0-70.0) % Seg Neutrophils # 11.0 H (1.8-7.7) K/mm3 PT 15.0 H (12.2-14.9) Sec. INR 1.17 H (0.87-1.13) D-Dimer 967.21 H (0-234) ng/mlDDU ABG pO2 (80.0-90.0) mm Hg Oxyhemoglobin (95.0-99.0) % Glucose 104 H (75-100) mg/dL Calcium 7.7 L (8.4-10.2) mg/dL Total Protein 5.9 L (6.3-8.2) g/dL Albumin 1.3 L (3.9-5) g/dL 08/02/20 Range/Units 14:05 WBC (4.5-11.0) K/mm3 RBC (3.65-5.03) M/mm3 MCV (84-94) fl MCH (28-32) pg RDW (13.2-15.2) % Seg Neutrophils % (40.0-70.0) % Seg Neutrophils # (1.8-7.7) K/mm3 PT (12.2-14.9) Sec. INR (0.87-1.13) D-Dimer (0-234) ng/mlDDU ABG pO2 77.1 L (80.0-90.0) mm Hg Oxyhemoglobin 93.8 L (95.0-99.0) % Glucose (75-100) mg/dL Calcium (8.4-10.2) mg/dL Total Protein (6.3-8.2) g/dL Albumin (3.9-5) g/dL Assessment and Plan - Patient Problems (1) Acute hypoxemic respiratory failure Current Visit: Yes Status: Acute Plan to address problem: Chest x-ray, CTA chest, d-dimer, arterial blood gas, supplemental oxygen, pulse oximetry, nebulizer therapy via MDI via spacer, prone positioning while in bed (2) PNA (pneumonia) Current Visit: Yes Status: Acute Qualifiers: Pneumonia type: due to unspecified organism Laterality: bilateral Lung location: unspecified part of lung Qualified Code(s): J18.9 - Pneumonia, unspecified organism Plan to address problem: Pneumonia protocol: Chest x-ray, CTA chest, supplemental oxygen, pulse oximetry, IV antibiotic therapy, blood culture, (3) Suspected COVID-19 virus infection Current Visit: Yes Status: Acute Plan to address problem: Coronavirus protocol initiated in the emergency department: Coronavirus PCR ordered and is pending at the time of admission, isolation precaution, contact precaution, prone positioning while in bed, IV steroid therapy, (4) Systemic inflammatory response syndrome Current Visit: Yes Status: Acute Plan to address problem: CBC, CMP, chest x-ray, urinalysis, blood culture, IV antibiotic therapy. (5) Nicotine dependence Current Visit: Yes Status: Acute Qualifiers: Nicotine product type: cigarettes Substance use status: in withdrawal [place] lified Code(s): F17.213 - Nicotine dependence, cigarettes, with withdrawal Plan to address problem: Smoking cessation, supportive care, behavior change counseling, +15 minutes. (6) EtOH dependence Current Visit: No Status: Chronic Qualifiers: Substance use status: uncomplicated Qualified Code(s): F10.20 - Alcohol dependence, uncomplicated Plan to address problem: Thiamine, folic acid, multivitamin, CIWA protocol. (7) DVT prophylaxis Current Visit: No Status: Acute Plan to address problem: SCD to bilateral lower extremities while in bed, patient is ambulatory, prophylactic anticoagulation.
[2020-08-02 16:15] LABS: C-Reactive Protein 7.4 mg/dL (0.00-1.30)
[2020-08-02] MEDS: methylPREDNISolone Sod Succinate 40 MG/1 ML INJ IV SCH ×2 (18:33→23:53)
[2020-08-02] MEDS: THIAMINE 100 MG TAB PO SCH (20:39)
[2020-08-02] MEDS: FOLIC ACID 1 MG TAB PO SCH (20:39)
[2020-08-02] MEDS: MULTIVITAMINS ,THERAPEUTIC TAB PO SCH (20:39)
[2020-08-02] MEDS: HEPARIN 5,000 UNIT/1 ML VIAL SUB-Q SCH (21:50)
[2020-08-03 07:39] LABS: Basophils % (Auto) 0.2 % (0.0-1.8); Eosinophils % (Auto) 0.1 % (0.0-4.3); Hematocrit 37.3 % (35.5-45.6); Lymphocytes # (Auto) 1.7 K/mm3 (1.2-5.4); Lymphocytes % (Auto) 16.5 % (13.4-35.0); Mean Corpuscular HGB Conc 32 % (32-34); Monocytes # (Auto) 0.2 K/mm3 (0.0-0.8); Monocytes % (Auto) 1.9 % (0.0-7.3); Platelet Count 255 K/mm3 (140-440); Red Blood Count 5.81 M/mm3 (3.65-5.03); Red Cell Distribution Width 17.2 % (13.2-15.2)
[2020-08-03 07:43] LABS: Mean Corpuscular Volume 64 fl (84-94)
[2020-08-03 08:01] LABS: BUN/Creatinine Ratio 18; Blood Urea Nitrogen 21 mg/dL (9-20); Calcium 7.7 mg/dL (8.4-10.2); Hemolysis Index 7
--- NOTE | 2020-08-03 08:54 | Progress Note ---
Assessment and Plan Assessment and plan: Acute hypoxemic respiratory failure Chest x-ray, CTA chest, d-dimer, arterial blood gas, supplemental oxygen, pulse oximetry, nebulizer therapy via MDI via spacer, prone positioning while in bed PNA (pneumonia) Pneumonia protocol: Chest x-ray, CTA chest, supplemental oxygen, pulse oximetry, IV antibiotic therapy, blood culture, Suspected COVID-19 virus infection Coronavirus protocol initiated in the emergency department: Coronavirus PCR ordered and is pending at the time of admission, isolation precaution, contact precaution, prone positioning while in bed, IV steroid therapy, Systemic inflammatory response syndrome CBC, CMP, chest x-ray, urinalysis, blood culture, IV antibiotic therapy. Nicotine dependence Smoking cessation, supportive care, behavior change counseling, +15 minutes. EtOH dependence Thiamine, folic acid, multivitamin, CIWA protocol. DVT prophylaxis SCD to bilateral lower extremities while in bed, patient is ambulatory, prophylactic anticoagulation. History Interval history: No new issues overnight. Hospitalist Physical - Constitutional Vitals: Temp Pulse Resp BP Pulse Ox 97.8 F 64 20 146/78 96 08/03/20 05:48 08/03/20 05:48 08/03/20 05:48 08/03/20 05:48 08/03/20 05:48 General appearance: Present: mild distress - EENT Eyes: Present: PERRL, EOM intact ENT: hearing intact, clear oral mucosa, dentition normal - Neck Neck: Present: supple, normal ROM - Respiratory Respiratory effort: normal Respiratory: bilateral: CTA - Cardiovascular Rhythm: regular Heart Sounds: Present: S1 & S2. Absent: gallop, rub - Extremities Extremities: no ischemia, No edema, Full ROM - Abdominal General gastrointestinal: soft, non-tender, non-distended, normal bowel sounds - Integumentary Integumentary: Present: clear, warm, dry - Neurologic Neurologic: CNII-XII intact, moves all extremities HEART Score - HEART Score Troponin: Troponin T < 0.010 ng/mL (0.00-0.029) 08/02/20 10:47 Results - Labs CBC & Chem 7: 08/03/20 07:08 08/03/20 07:08 Labs: Laboratory Last Values WBC 10.2 K/mm3 (4.5-11.0) 08/03/20 07:08 RBC 5.81 M/mm3 (3.65-5.03) H 08/03/20 07:08 Hgb 12.0 gm/dl (11.8-15.2) 08/03/20 07:08 Hct 37.3 % (35.5-45.6) 08/03/20 07:08 MCV 64 fl (84-94) L 08/03/20 07:08 MCH 21 pg (28-32) L 08/03/20 07:08 MCHC 32 % (32-34) 08/03/20 07:08 RDW 17.2 % (13.2-15.2) H 08/03/20 07:08 Plt Count 255 K/mm3 (140-440) 08/03/20 07:08 Lymph % (Auto) 16.5 % (13.4-35.0) 08/03/20 07:08 [place] % (Auto) 1.9 % (0.0-7.3) 08/03/20 07:08 Eos % (Auto) 0.1 % (0.0-4.3) 08/03/20 07:08 Baso % (Auto) 0.2 % (0.0-1.8) 08/03/20 07:08 Lymph # (Auto) 1.7 K/mm3 (1.2-5.4) 08/03/20 07:08 [place] # (Auto) 0.2 K/mm3 (0.0-0.8) 08/03/20 07:08 Eos # (Auto) 0.0 K/mm3 (0.0-0.4) 08/03/20 07:08 Baso # (Auto) 0.0 K/mm3 (0.0-0.1) 08/03/20 07:08 Seg Neutrophils % 81.3 % (40.0-70.0) H 08/03/20 07:08 Seg Neutrophils # 8.3 K/mm3 (1.8-7.7) H 08/03/20 07:08 PT 15.0 Sec. (12.2-14.9) H 08/02/20 10:47 INR 1.17 (0.87-1.13) H 08/02/20 10:47 APTT 36.5 Sec. (24.2-36.6) 08/02/20 10:47 D-Dimer 819.77 ng/mlDDU (0-234) H 08/02/20 15:23 ABG pH 7.438 pH Units (7.350-7.450) 08/02/20 14:05 ABG pCO2 38.3 mm Hg 08/02/20 14:05 ABG pO2 77.1 mm Hg (80.0-90.0) L 08/02/20 14:05 ABG HCO3 25.3 mmol/L (20.0-26.0) 08/02/20 14:05 ABG O2 Saturation 96.0 % (95.0-99.0) 08/02/20 14:05 ABG O2 Content 19.1 (0.0-44) 08/02/20 14:05 ABG Base Excess 1.2 mmol/L (-2.0-3.0) 08/02/20 14:05 ABG Hemoglobin 14.4 gm/dl (14.0-18.0) 08/02/20 14:05 ABG Carboxyhemoglobin 1.6 % (0.0-5.0) 08/02/20 14:05 ABG Methemoglobin 0.6 % (0.0-1.5) 08/02/20 14:05 Oxyhemoglobin 93.8 % (95.0-99.0) L 08/02/20 14:05 FiO2 21 % 08/02/20 14:05 Sodium 137 mmol/L (137-145) 08/03/20 07:08 Potassium 4.9 mmol/L (3.6-5.0) 08/03/20 07:08 Chloride 100.6 mmol/L (98-107) 08/03/20 07:08 Carbon Dioxide 25 mmol/L (22-30) 08/03/20 07:08 Anion Gap 16 mmol/L 08/03/20 07:08 BUN 21 mg/dL (9-20) H 08/03/20 07:08 Creatinine 1.2 mg/dL (0.8-1.3) 08/03/20 07:08 Estimated GFR > 60 ml/min 08/03/20 07:08 BUN/Creatinine Ratio 18 % 08/03/20 07:08 Glucose 140 mg/dL (75-100) H 08/03/20 07:08 Calcium 7.7 mg/dL (8.4-10.2) L 08/03/20 07:08 Ferritin 267.3 ng/mL (30.0-300.0) 08/02/20 15:23 Total Bilirubin 0.20 mg/dL (0.1-1.2) 08/02/20 10:47 AST 13 units/L (5-40) 08/02/20 10:47 ALT 9 units/L (7-56) 08/02/20 10:47 Alkaline Phosphatase 82 units/L (35-129) 08/02/20 10:47 Lactate Dehydrogenase 248 units/L (91-180) H 08/02/20 15:23 Troponin T < 0.010 ng/mL (0.00-0.029) 08/02/20 10:47 C-Reactive Protein 7.40 mg/dL (0.00-1.30) H 08/02/20 15:23 Total Protein 5.9 g/dL (6.3-8.2) L 08/02/20 10:47 Albumin 1.3 g/dL (3.9-5) L 08/02/20 10:47 Albumin/Globulin Ratio 0.3 % 08/02/20 10:47 Garibay/IV: Voiding Method Toilet IV Catheter Type [Right Peripheral IV Antecubital] Active Medications - Current Medications Current Medications: Generic Name Dose Route Start Last Admin Trade Name Freq PRN Reason Stop Dose Admin Acetaminophen 650 mg 08/02/20 15:15 Tylenol PO Q4H PRN Pain MILD(1-3)/Fever >100.5/MUSE Azithromycin 500 mg 08/04/20 10:00 Zithromax PO 08/06/20 10:01 QDAY GUSTAVO Folic Acid 1 mg 08/02/20 20:05 08/02/20 20:39 Folvite PO 1 mg QDAY GUSTAVO Administration Heparin Sodium (Porcine) 5,000 unit 08/02/20 22:00 08/02/20 21:50 Heparin SUB-Q 5,000 unit Q12HR GUSTAVO Administration Ceftriaxone Sodium 2 gm in 100 mls @ 200 mls/hr 08/03/20 10:00 Rocephin/Ns 2 Gm/100 Ml IV Q24HR GUSTAVO Protocol Azithromycin 500 mg/ Sodium 250 mls @ 250 mls/hr 08/03/20 10:00 Chloride IV 08/03/20 16:00 Q24HR GUSTAVO Protocol Methylprednisolone Sodium Succinate 40 mg 08/02/20 16:00 08/02/20 23:53 Solu-Medrol IV 40 mg Q8H GUSTAVO Administration Multivitamins 1 each 08/02/20 20:05 08/02/20 20:39 Theragran Tab PO 1 each QDAY GUSTAVO Administration Ondansetron HCl 4 mg 08/02/20 15:15 Zofran IV Q8H PRN Nausea And Vomiting Sodium Chloride 10 ml 08/02/20 22:00 08/02/20 21:52 Sodium Chloride Flush Syringe 10 Ml IV 10 ml BID GUSTAVO Administration Sodium Chloride 10 ml 08/02/20 15:15 Sodium Chloride Flush Syringe 10 Ml IV PRN PRN LINE FLUSH Thiamine HCl 100 mg 08/02/20 20:05 08/02/20 20:39 Vitamin B-1 PO 100 mg QDAY GUSTAVO Administration
[2020-08-03] MEDS ORDERED: AZITHROMYCIN 500 MG in SODIUM CHLORIDE 0.9% 250ML 250 ML IV SCH (10:00)
[2020-08-03] MEDS: methylPREDNISolone Sod Succinate 40 MG/1 ML INJ IV SCH ×2 (12:03→18:44)
[2020-08-03] MEDS: cefTRIAXone/NS 2 GM/100 ML 2 GM/100 ML BAG IV SCH ×2 (12:03→14:58)
[2020-08-03] MEDS: MULTIVITAMINS ,THERAPEUTIC TAB PO SCH (12:04)
[2020-08-03] MEDS: HEPARIN 5,000 UNIT/1 ML VIAL SUB-Q SCH ×3 (12:04→22:17)
[2020-08-03] MEDS: THIAMINE 100 MG TAB PO SCH (12:04)
[2020-08-03] MEDS: FOLIC ACID 1 MG TAB PO SCH (15:05)
[2020-08-03] MEDS ORDERED: guaiFENesin/CODEINE 100-10MG ORAL LIQD 5 ML PO PRN (21:16)
[2020-08-03] MEDS: guaiFENesin 200 MG TAB PO PRN (22:17)
[2020-08-04] MEDS: methylPREDNISolone Sod Succinate 40 MG/1 ML INJ IV SCH ×3 (00:55→16:39)
--- NOTE | 2020-08-04 08:09 | Progress Note ---
Assessment and Plan Assessment and plan: Acute hypoxemic respiratory failure Chest x-ray, CTA chest, d-dimer, arterial blood gas, supplemental oxygen, pulse oximetry, nebulizer therapy via MDI via spacer, prone positioning while in bed PNA (pneumonia) Pneumonia protocol: Chest x-ray, CTA chest, supplemental oxygen, pulse oximetry, IV antibiotic therapy, blood culture, Acute asthma exacerbation Sepsis Follow-up blood and urine cultures. Sepsis protocol. Present on admission. Patient meets criteria given the tachycardia leukocytosis and diagnosis of pneumonia Nicotine dependence Smoking cessation, supportive care, behavior change counseling, +15 minutes. EtOH dependence Thiamine, folic acid, multivitamin, CIWA protocol. DVT prophylaxis SCD to bilateral lower extremities while in bed, patient is ambulatory, prophylactic anticoagulation. 08/04/2020. COVID-19 testing was found to be negative. Continue IV antibiotics and monitor closely patient reports of history of asthma and likely has component of asthma exacerbation. Continue steroids and bronchodilators History Interval history: No new issues overnight. Hospitalist Physical - Constitutional Vitals: Temp Pulse Resp BP Pulse Ox 97.5 F L 69 20 145/77 92 08/04/20 04:46 08/04/20 04:46 08/04/20 04:46 08/04/20 04:46 08/04/20 04:46 General appearance: Present: mild distress - EENT Eyes: Present: PERRL, EOM intact ENT: hearing intact, clear oral mucosa, dentition normal - Neck Neck: Present: supple, normal ROM - Respiratory Respiratory effort: normal Respiratory: bilateral: CTA - Cardiovascular Rhythm: regular Heart Sounds: Present: S1 & S2. Absent: gallop, rub - Extremities Extremities: no ischemia, No edema, Full ROM - Abdominal General gastrointestinal: soft, non-tender, non-distended, normal bowel sounds - Integumentary Integumentary: Present: clear, warm, dry - Neurologic Neurologic: CNII-XII intact, moves all extremities HEART Score - HEART Score Troponin: Troponin T < 0.010 ng/mL (0.00-0.029) 08/02/20 10:47 Results - Labs CBC & Chem 7: 08/03/20 07:08 08/03/20 07:08 Labs: Laboratory Last Values WBC 10.2 K/mm3 (4.5-11.0) 08/03/20 07:08 RBC 5.81 M/mm3 (3.65-5.03) H 08/03/20 07:08 Hgb 12.0 gm/dl (11.8-15.2) 08/03/20 07:08 Hct 37.3 % (35.5-45.6) 08/03/20 07:08 MCV 64 fl (84-94) L 08/03/20 07:08 MCH 21 pg (28-32) L 08/03/20 07:08 MCHC 32 % (32-34) 08/03/20 07:08 RDW 17.2 % (13.2-15.2) H 08/03/20 07:08 Plt Count 255 K/mm3 (140-440) 08/03/20 07:08 Lymph % (Auto) 16.5 % (13.4-35.0) 08/03/20 07:08 [place] % (Auto) 1.9 % (0.0-7.3) 08/03/20 07:08 Eos % (Auto) 0.1 % (0.0-4.3) 08/03/20 07:08 Baso % (Auto) 0.2 % (0.0-1.8) 08/03/20 07:08 Lymph # (Auto) 1.7 K/mm3 (1.2-5.4) 08/03/20 07:08 [place] # (Auto) 0.2 K/mm3 (0.0-0.8) 08/03/20 07:08 Eos # (Auto) 0.0 K/mm3 (0.0-0.4) 08/03/20 07:08 Baso # (Auto) 0.0 K/mm3 (0.0-0.1) 08/03/20 07:08 Seg Neutrophils % 81.3 % (40.0-70.0) H 08/03/20 07:08 Seg Neutrophils # 8.3 K/mm3 (1.8-7.7) H 08/03/20 07:08 PT 15.0 Sec. (12.2-14.9) H 08/02/20 10:47 INR 1.17 (0.87-1.13) H 08/02/20 10:47 APTT 36.5 Sec. (24.2-36.6) 08/02/20 10:47 D-Dimer 819.77 ng/mlDDU (0-234) H 08/02/20 15:23 ABG pH 7.438 pH Units (7.350-7.450) 08/02/20 14:05 ABG pCO2 38.3 mm Hg 08/02/20 14:05 ABG pO2 77.1 mm Hg (80.0-90.0) L 08/02/20 14:05 ABG HCO3 25.3 mmol/L (20.0-26.0) 08/02/20 14:05 ABG O2 Saturation 96.0 % (95.0-99.0) 08/02/20 14:05 ABG O2 Content 19.1 (0.0-44) 08/02/20 14:05 ABG Base Excess 1.2 mmol/L (-2.0-3.0) 08/02/20 14:05 ABG Hemoglobin 14.4 gm/dl (14.0-18.0) 08/02/20 14:05 ABG Carboxyhemoglobin 1.6 % (0.0-5.0) 08/02/20 14:05 ABG Methemoglobin 0.6 % (0.0-1.5) 08/02/20 14:05 Oxyhemoglobin 93.8 % (95.0-99.0) L 08/02/20 14:05 FiO2 21 % 08/02/20 14:05 Sodium 137 mmol/L (137-145) 08/03/20 07:08 Potassium 4.9 mmol/L (3.6-5.0) 08/03/20 07:08 Chloride 100.6 mmol/L (98-107) 08/03/20 07:08 Carbon Dioxide 25 mmol/L (22-30) 08/03/20 07:08 Anion Gap 16 mmol/L 08/03/20 07:08 BUN 21 mg/dL (9-20) H 08/03/20 07:08 Creatinine 1.2 mg/dL (0.8-1.3) 08/03/20 07:08 Estimated GFR > 60 ml/min 08/03/20 07:08 BUN/Creatinine Ratio 18 % 08/03/20 07:08 Glucose 140 mg/dL (75-100) H 08/03/20 07:08 Calcium 7.7 mg/dL (8.4-10.2) L 08/03/20 07:08 Ferritin 267.3 ng/mL (30.0-300.0) 08/02/20 15: Total Bilirubin 0.20 mg/dL (0.1-1.2) 08/02/20 10:47 AST 13 units/L (5-40) 08/02/20 10:47 ALT 9 units/L (7-56) 08/02/20 10:47 Alkaline Phosphatase 82 units/L (35-129) 08/02/20 10:47 Lactate Dehydrogenase 248 units/L (91-180) H 08/02/20 15:23 Troponin T < 0.010 ng/mL (0.00-0.029) 08/02/20 10:47 C-Reactive Protein 7.40 mg/dL (0.00-1.30) H 08/02/20 15:23 Total Protein 5.9 g/dL (6.3-8.2) L 08/02/20 10:47 Albumin 1.3 g/dL (3.9-5) L 08/02/20 10:47 Albumin/Globulin Ratio 0.3 % 08/02/20 10:47 Procalcitonin < 0.05 ng/mL (<0.15) 08/02/20 15:23 Coronavirus (PCR) Negative (Negative) 08/03/20 14:40 Garibay/IV: Voiding Method Toilet IV Catheter Type [Left Forearm INT / Saline Lock ] IV Catheter Type [Right Peripheral IV Antecubital] Active Medications - Current Medications Current Medications: Generic Name Dose Route Start Last Admin Trade Name Freq PRN Reason Stop Dose Admin Acetaminophen 650 mg 08/02/20 15:15 Tylenol PO Q4H PRN Pain MILD(1-3)/Fever >100.5/MUSE Azithromycin 500 mg 08/04/20 10:00 Zithromax PO 08/06/20 10:01 QDAY GUSTAVO Folic Acid 1 mg 08/02/20 20:05 08/03/20 15:05 Folvite PO 1 mg QDAY GUSTAVO Administration Guaifenesin 200 mg 08/03/20 21:57 08/03/20 22:17 Robitussin PO 200 mg Q6H PRN Administration Cough Heparin Sodium (Porcine) 5,000 unit 08/02/20 22:00 08/03/20 22:17 Heparin SUB-Q 5,000 unit Q12HR GUSTAVO Administration Ceftriaxone Sodium 2 gm in 100 mls @ 200 mls/hr 08/03/20 10:00 08/03/20 14:58 Rocephin/Ns 2 Gm/100 Ml IV 200 mls/hr Q24HR GUSTAVO Administration Protocol Methylprednisolone Sodium Succinate 40 mg 08/02/20 16:00 08/04/20 00:55 Solu-Medrol IV 40 mg Q8H GUSTAVO Administration Multivitamins 1 each 08/02/20 20:05 08/03/20 12:04 Theragran Tab PO 1 each QDAY GUSTAVO Administration Ondansetron HCl 4 mg 08/02/20 15:15 Zofran IV Q8H PRN Nausea And Vomiting Sodium Chloride 10 ml 08/02/20 22:00 08/04/20 00:55 Sodium Chloride Flush Syringe 10 Ml IV 10 ml BID GUSTAVO Administration Sodium Chloride 10 ml 08/02/20 15:15 Sodium Chloride Flush Syringe 10 Ml IV PRN PRN LINE FLUSH Thiamine HCl 100 mg 08/02/20 20:05 08/03/20 12:04 Vitamin B-1 PO 100 mg QDAY GUSTAVO Administration
[2020-08-04] MEDS: cefTRIAXone/NS 2 GM/100 ML 2 GM/100 ML BAG IV SCH (10:52)
[2020-08-04] MEDS: HEPARIN 5,000 UNIT/1 ML VIAL SUB-Q SCH ×2 (10:52→21:48)
[2020-08-04] MEDS: AZITHROMYCIN 250 MG TAB PO SCH (10:53)
[2020-08-04] MEDS: THIAMINE 100 MG TAB PO SCH (10:53)
[2020-08-04] MEDS: MULTIVITAMINS ,THERAPEUTIC TAB PO SCH (10:53)
[2020-08-04] MEDS: FOLIC ACID 1 MG TAB PO SCH (10:53)
[2020-08-04] MEDS: guaiFENesin 200 MG TAB PO PRN ×2 (10:56→18:29)
[2020-08-04] MEDS ORDERED: ALBUTEROL 2.5 MG/3 ML NEBU IH PRN (17:07)
[2020-08-04] MEDS ORDERED: ALBUTEROL 2.5 MG/3 ML NEBU IH ONE (17:15)
[2020-08-04] MEDS ORDERED: BUDESONIDE 0.25 MG/2 ML NEBU IH SCH ×2 (20:00)
[2020-08-04] MEDS: BUDESONIDE 0.5 MG/2 ML NEBU IH SCH (20:43)
[2020-08-04] MEDS: ARFORMOTEROL 15 MCG/2 ML NEBU IH SCH (20:43)
[2020-08-05] MEDS: methylPREDNISolone Sod Succinate 40 MG/1 ML INJ IV SCH ×2 (00:40→10:01)
[2020-08-05] MEDS: guaiFENesin 200 MG TAB PO PRN (05:27)
[2020-08-05 05:55] LABS: Hematocrit 36.6 % (35.5-45.6); Hemoglobin 11.7 gm/dl (11.8-15.2); Lymphocytes # (Auto) 2.4 K/mm3 (1.2-5.4); Lymphocytes % (Auto) 21.1 % (13.4-35.0); Mean Corpuscular HGB Conc 32 % (32-34); Monocytes # (Auto) 0.2 K/mm3 (0.0-0.8); Monocytes % (Auto) 2.1 % (0.0-7.3); Platelet Count 280 K/mm3 (140-440)
[2020-08-05 06:00] LABS: Mean Corpuscular Volume 64 fl (84-94)
[2020-08-05 06:17] LABS: BUN/Creatinine Ratio 27; Blood Urea Nitrogen 24 mg/dL (9-20); Calcium 7.8 mg/dL (8.4-10.2); Hemolysis Index 5
[2020-08-05] MEDS: BUDESONIDE 0.5 MG/2 ML NEBU IH SCH (07:44)
[2020-08-05] MEDS: ARFORMOTEROL 15 MCG/2 ML NEBU IH SCH (07:44)
[2020-08-05] MEDS: cefTRIAXone/NS 2 GM/100 ML 2 GM/100 ML BAG IV SCH (10:01)
[2020-08-05] MEDS: THIAMINE 100 MG TAB PO SCH (10:02)
[2020-08-05] MEDS: MULTIVITAMINS ,THERAPEUTIC TAB PO SCH (10:02)
[2020-08-05] MEDS: AZITHROMYCIN 250 MG TAB PO SCH (10:02)
[2020-08-05] MEDS: FOLIC ACID 1 MG TAB PO SCH (10:02)
[2020-08-05] MEDS: HEPARIN 5,000 UNIT/1 ML VIAL SUB-Q SCH (10:16)
--- NOTE | 2020-08-05 10:55 | XRay Report ---
CHEST 1 VIEW INDICATION / CLINICAL INFORMATION: pna. COMPARISON: 08/02/2020 FINDINGS: SUPPORT DEVICES: None. HEART / MEDIASTINUM: No significant abnormality. LUNGS / PLEURA: No significant pulmonary or pleural abnormality. No pneumothorax. ADDITIONAL FINDINGS: No significant additional findings. IMPRESSION: No acute disease or interval change from 08/02/2020 Signer Name: Jakob Barron MD FACR Signed: 08/05/2020 10:51 AM Workstation Name: [id number]
--- NOTE | 2020-08-05 11:02 | Discharge Summary ---
Providers - Providers Date of Admission: 08/02/20 15:15 Date of discharge: 08/05/20 Attending physician: RON NAVARRETE Primary care physician: DIGITAL ASSISTANT Hospitalization Reason for admission: PNA, asthma exac Condition: Stable Hospital course: 39 YO Male with Mild Intermittent Asthma, Nicotine Dependence, ETOH Dependence complicated by Pancreatitis presented to ED for evaluation. Pt stated that he has experienced shortness of breath over the past 5 days with persistently worsening symptoms over the same timeframe. Patient knowledges decreased exercise tolerance, dyspnea on exertion as well as dyspnea at rest. Pt seen and evaluated in the emergency department. Patient underwent CT scan of the chest and was found to have bilateral pneumonia. Patient also found to have a pulse oximetry of 86% with exertion which is consistent with acute hypoxemic respiratory failure. Pt. admitted with dx of acute hypoxic resp failure, asthma exac, Eric pna and sepsis. Patient initiated on pneumonia protocol as well as initiated on COVID-19 protocol. Patient treated with IV antibiotic therapy as well as IV steroid therapy and admitted to medical floor due to increased risk of decompensation. Covid testing found to be negative. Pt. received rx with abx, steroids and breathing tmts with resolution. Dedicated d/c time 34 min Disposition: DC-01 TO HOME OR SELFCARE Time spent for discharge: 34 - Discharge Diagnoses (1) Sepsis Status: Acute (2) Acute hypoxemic respiratory failure Status: Acute (3) Hypoxia Status: Acute (4) Nicotine dependence Status: Acute Qualifiers: Nicotine product type: cigarettes Substance use status: in withdrawal Qualified Code(s): F17.213 - Nicotine dependence, cigarettes, with withdrawal (5) PNA (pneumonia) Status: Acute Qualifiers: Pneumonia type: due to unspecified organism Laterality: bilateral Lung location: unspecified part of lung Qualified Code(s): J18.9 - Pneumonia, unspecified organism (6) Asthma Status: Chronic Core Measure Documentation - Palliative Care Palliative Care/ Comfort Measures: Not Applicable - Core Measures Any of the following diagnoses?: none Exam - Constitutional Vitals: Temp Pulse Resp BP Pulse Ox 97.4 F L 74 16 136/85 98 08/04/20 21:22 08/05/20 07:44 08/05/20 07:44 08/04/20 21:22 08/05/20 07:45 General appearance: Present: no acute distress, well-nourished - EENT Eyes: Present: PERRL ENT: hearing intact, clear oral mucosa - Neck Neck: Present: supple, normal ROM - Respiratory Respiratory effort: normal Respiratory: bilateral: CTA - Cardiovascular Heart Sounds: Present: S1 & S2. Absent: rub, click - Extremities Extremities: pulses symmetrical, No edema Peripheral Pulses: within normal limits - Abdominal General gastrointestinal: Present: soft, non-tender, non-distended, normal bowel sounds Male genitourinary: Present: normal - Integumentary Integumentary: Present: clear, warm, dry - Musculoskeletal Musculoskeletal: gait normal, strength equal bilaterally - Psychiatric Psychiatric: appropriate mood/affect, intact judgment & insight - Neurologic Neurologic: CNII-XII intact, moves all extremities Plan Activity: advance as tolerated Weight Bearing Status: Weight Bear as Tolerated Diet: regular Prescriptions: cefUROXime [Ceftin] 500 mg PO Q12H #14 tablet Lisinopril 20 mg PO BID #60 methylPREDNISolone [Medrol 4MG DOSEPAK (21 tabs)] 4 mg PO DAILY #1 tab.ds.pk guaiFENesin [Robitussin] 200 mg PO Q6H PRN #20 tablet PRN Reason: Cough Budesonide/Formoterol Fumarate [Symbicort 160-4.5 Mcg Inhaler] 10.2 gm IH BID 30 Days hfa.aer.ad Azithromycin [Zithromax TAB] 500 mg PO QDAY #5 tablet
[2020-08-05 14:05] VITALS: BP 143/84
== END 2020-08-05 14:25 | disposition home or self-care (01) | DRG 871 ==
LOC: ED 07:34 → 3A 15:15
PROVIDERS: ADMIT Internal Medicine; ATTEND Hospitalist
DX: A41.9 Sepsis, unspecified organism (principal); J96.01 Acute respiratory failure with hypoxia; J18.9 Pneumonia, unspecified organism; F17.213 Nicotine dependence, cigarettes, with withdrawal; J45.21 Mild intermittent asthma with (acute) exacerbation; Z71.6 Tobacco abuse counseling; Z79.51 Long term (current) use of inhaled steroids; M10.9 Gout, unspecified; Z20.828 Contact with and (suspected) exposure to other viral communicable diseases; Z82.49 Family history of ischemic heart disease and other diseases of the circulatory system; F10.20 Alcohol dependence, uncomplicated
CPT/HCPCS: 36415; 71045; 71046; 71275; 80048; 80053; 82728; 82803; 82947; 83615; 84145; 84484; 85025; 85379; 85610; 85730; 86140; 93005; 93306; 94640; 94644; 96365; 96375; 99406; G0378; J0456; J0696; J1100; J1644; J2920; J3475; J7050; Q9967; U0003-CS

== ENCOUNTER 2020-09-12 21:27 | Observation (INO) | payer OTHER, SELFPAY ==
[2020-09-13] MEDS ORDERED: ALBUTEROL 2.5 MG/3 ML NEBU IH ONE ×2 (01:06→08:11)
[2020-09-13] MEDS ORDERED: dexAMETHasone 20 MG/5 ML VIAL IV ONE (01:06)
[2020-09-13] MEDS ORDERED: IPRATROPIUM 0.02% NEBU 2.5 ML IH ONE ×2 (01:06→08:11)
--- NOTE | 2020-09-13 01:36 | XRay Report ---
CHEST PA AND LATERAL VIEWS INDICATION: cough, sob. COMPARISON: 08/05/2020 FINDINGS: Support devices: None. Heart: Within normal limits. Lungs/Pleura: Ill-defined opacity is seen in the right infrahilar region. IMPRESSION: 1. Mild pneumonia right infrahilar region. Signer Name: Daryn Key MD Signed: 09/13/2020 1:32 AM Workstation Name: [id number]
[2020-09-13 01:44] LABS: Basophils # (Auto) 0.1 K/mm3 (0.0-0.1); Basophils % (Auto) 0.8 % (0.0-1.8); Eosinophils # (Auto) 0.6 K/mm3 (0.0-0.4); Eosinophils % (Auto) 5.3 % (0.0-4.3); Hematocrit 39.4 % (35.5-45.6); Hemoglobin 12.6 gm/dl (11.8-15.2); Lymphocytes # (Auto) 3.6 K/mm3 (1.2-5.4); Lymphocytes % (Auto) 31.7 % (13.4-35.0); Mean Corpuscular HGB Conc 32 % (32-34); Monocytes # (Auto) 0.5 K/mm3 (0.0-0.8); Monocytes % (Auto) 4.3 % (0.0-7.3); Platelet Count 330 K/mm3 (140-440); Red Blood Count 6.11 M/mm3 (3.65-5.03); Red Cell Distribution Width 18.3 % (13.2-15.2)
[2020-09-13 01:45] LABS: Mean Corpuscular Volume 65 fl (84-94)
[2020-09-13] MEDS ORDERED: cefTRIAXone/NS 2 GM/100 ML 2 GM/100 ML BAG IV ONE (01:45)
[2020-09-13] MEDS ORDERED: AZITHROMYCIN 500 MG in SODIUM CHLORIDE 0.9% 250ML 250 ML IV ONE (01:45)
[2020-09-13 02:07] LABS: Alanine Aminotransferase 14 units/L (7-56); Albumin 1.8 g/dL (3.9-5); BUN/Creatinine Ratio 10; Blood Urea Nitrogen 8 mg/dL (9-20); Calcium 8.1 mg/dL (8.4-10.2); Hemolysis Index 11
--- NOTE | 2020-09-13 02:27 | Emergency Department Report ---
- General Chief Complaint: Upper Respiratory Infection Stated Complaint: COLD SX/SOB Time Seen by Provider: 09/13/20 00:48 Source: patient Mode of arrival: Ambulatory Limitations: No Limitations - History of Present Illness Initial Comments: Patient is a 39-year-old male presents emergency room with complaints of a productive cough that began a week ago. He has associated shortness of breath, wheezing, chest tightness, fatigue. He states he has had a couple of episodes of posttussive vomiting. He denies any fever, abdominal pain or diarrhea. He states that he just got a nebulizer machine a couple of days ago and has been doing treatments twice a day. He denies any recent travel or known sick contacts. He has a past medical history of asthma and bronchitis. He states he is a current smoker. No allergies to medications. Patient states that he was admitted in the hospital last month with pneumonia and believes he has pneumonia again. - Related Data Home Medications Medication Instructions Recorded Confirmed Last Taken ALBUTEROL NEB's [Proventil 0.083% 2.5 mg IH TID PRN 08/02/20 08/02/20 Unknown NEBS] Furosemide [Lasix TAB] 40 mg PO DAILY 08/02/20 08/02/20 Unknown Previous Rx's Medication Instructions Recorded Last Taken Type Azithromycin [Zithromax TAB] 500 mg PO QDAY #5 tablet 08/05/20 Unknown Rx Budesonide/Formoterol Fumarate 10.2 gm IH BID 30 Days hfa.aer.ad 08/05/20 Unknown Rx [Symbicort 160-4.5 Mcg Inhaler] Lisinopril 20 mg PO BID #60 08/05/20 Unknown Rx cefUROXime [Ceftin] 500 mg PO Q12H #14 tablet 08/05/20 Unknown Rx guaiFENesin [Robitussin] 200 mg PO Q6H PRN #20 tablet 08/05/20 Unknown Rx methylPREDNISolone [Medrol 4MG 4 mg PO DAILY #1 tab.ds.pk 08/05/20 Unknown Rx DOSEPAK (21 tabs)] Allergies Allergy/AdvReac Type Severity Reaction Status Date / Time No Known Allergies Allergy Verified 04/25/20 15:17 ED Review of Systems ROS: Stated complaint: COLD SX/SOB Other details as noted in HPI Comment: All other systems reviewed and negative ED Past Medical Hx - Past Medical History Hx Asthma: Yes Additional medical history: gout, Bronchitis, pancreatitis - Social History Smoking Status: Current Every Day Smoker Substance Use Type: None - Medications Home Medications: Home Medications Medication Instructions Recorded Confirmed Last Taken Type ALBUTEROL NEB's [Proventil 0.083% 2.5 mg IH TID PRN 08/02/20 08/02/20 Unknown Hi story NEBS] Furosemide [Lasix TAB] 40 mg PO DAILY 08/02/20 08/02/20 Unknown History Azithromycin [Zithromax TAB] 500 mg PO QDAY #5 tablet 08/05/20 Unknown Rx Budesonide/Formoterol Fumarate 10.2 gm IH BID 30 Days hfa.aer.ad 08/05/20 Unknown Rx [Symbicort 160-4.5 Mcg Inhaler] Lisinopril 20 mg PO BID #60 08/05/20 Unknown Rx cefUROXime [Ceftin] 500 mg PO Q12H #14 tablet 08/05/20 Unknown Rx guaiFENesin [Robitussin] 200 mg PO Q6H PRN #20 tablet 08/05/20 Unknown Rx methylPREDNISolone [Medrol 4MG 4 mg PO DAILY #1 tab.ds.pk 08/05/20 Unknown Rx DOSEPAK (21 tabs)] ED Physical Exam - General Limitations: No Limitations General appearance: alert, in no apparent distress - Head Head exam: Present: atraumatic, normocephalic - Eye Eye exam: Present: normal appearance - ENT ENT exam: Present: mucous membranes moist - Respiratory Respiratory exam: Present: wheezes, rhonchi, prolonged expiratory. Absent: respiratory distress, rales, stridor, chest wall tenderness, accessory muscle use - Cardiovascular Cardiovascular Exam: Present: regular rate, normal rhythm, normal heart sounds. Absent: systolic murmur, diastolic murmur, rubs, gallop - Neurological Exam Neurological exam: Present: alert, oriented X3 - Psychiatric Psychiatric exam: Present: normal affect, normal mood - Skin Skin exam: Present: warm, dry, intact ED Course Vital Signs 09/12/20 09/13/20 22:53 03:06 Temperature 98.0 F 98.2 F Pulse Rate 88 90 Respiratory 16 18 Rate Blood Pressure 151/102 Blood Pressure 129/67 [Right] O2 Sat by Pulse 94 94 Oximetry - Reevaluation(s) Reevaluation #1: 09/13/20 03:[address] Banuelos, ER attending who agrees with admission, advised to consult with hospitalist regarding antibiotic coverage given that patient was admitted last month - Consultations Consultation #1: 09/13/20 03:[address] Fraga, hospitalist, will call back 09/13/20 04:[address] Fraga, hospitalist, he states that he will cover patient for potential hospital-acquired pneumonia, he will order antibiotics, he advised to order COVID-19 work-up, he will accept and resume care of patient, will admit to hospital, advised [facility] sat ED Medical Decision Making - Lab Data Result diagrams: 09/13/20 01:32 09/13/20 04:43 Lab Results 09/13/20 09/13/20 Range/Units 01:32 01:32 WBC 11.3 H (4.5-11.0) K/mm3 RBC 6.11 H (3.65-5.03) M/mm3 Hgb 12.6 (11.8-15.2) gm/dl Hct 39.4 (35.5-45.6) % MCV 65 L (84-94) fl MCH 21 L (28-32) pg MCHC 32 (32-34) % RDW 18.3 H (13.2-15.2) % Plt Count 330 (140-440) K/mm3 Lymph % (Auto) 31.7 (13.4-35.0) % [place] % (Auto) 4.3 (0.0-7.3) % Eos % (Auto) 5.3 H (0.0-4.3) % Baso % (Auto) 0.8 (0.0-1.8) % Lymph # (Auto) 3.6 (1.2-5.4) K/mm3 [place] # (Auto) 0.5 (0.0-0.8) K/mm3 Eos # (Auto) 0.6 H (0.0-0.4) K/mm3 Baso # (Auto) 0.1 (0.0-0.1) K/mm3 Seg Neutrophils % 57.9 (40.0-70.0) % Seg Neutrophils # 6.6 (1.8-7.7) K/mm3 Sodium 140 (137-145) mmol/L Potassium 4.1 (3.6-5.0) mmol/L Chloride 102.3 (98-107) mmol/L Carbon Dioxide 29 (22-30) mmol/L Anion Gap 13 mmol/L BUN 8 L (9-20) mg/dL Creatinine 0.8 (0.8-1.3) mg/dL Estimated GFR > 60 ml/min BUN/Creatinine Ratio 10 % Glucose 95 (75-100) mg/dL Calcium 8.1 L (8.4-10.2) mg/dL Total Bilirubin < 0.20 (0.1-1.2) mg/dL AST 20 (5-40) units/L ALT 14 (7-56) units/L Alkaline Phosphatase 111 (35-129) units/L Total Protein 5.2 L (6.3-8.2) g/dL Albumin 1.8 L (3.9-5) g/dL Albumin/Globulin Ratio 0.5 % - Radiology Data Radiology results: report reviewed Ordering Physician: JOE MILLER Date of Service: 09/13/20 Procedure(s): XR chest routine 2V Accession Number(s): [id number] cc: JOE MILLER Fluoro Time In Minutes: CHEST PA AND LATERAL VIEWS INDICATION: cough, sob. COMPARISON: 08/05/2020 FINDINGS: Support devices: None. Heart: Within normal limits. Lungs/Pleura: Ill-defined opacity is seen in the right infrahilar region. IMPRESSION: 1. Mild pneumonia right infrahilar region. Signer Name: Daryn Key MD Signed: 09/13/2020 1:32 AM Workstation Name: [id number] Transcribed By: REX Dictated By: Daryn Key MD Electronically Authenticated By: Daryn Key MD Signed Date/Time: 09/13/20131 DD/ 0 TD/TT: - Medical Decision Making Patient is a 39-year-old male presents emergency room with complaints of a productive cough that began a week ago. He has associated shortness of breath, wheezing, chest tightness, fatigue. He states he has had a couple of episodes of posttussive vomiting. He denies any fever, abdominal pain or diarrhea. He states that he just got a nebulizer machine a couple of days ago and has been doing treatments twice a day. He denies any recent travel or known sick contacts. He has a past medical history of asthma and bronchitis. He states he is a current smoker. No allergies to medications. Patient states that he was admitted in the hospital last month with pneumonia and believes he has pneumonia again. Vitals with hypoxia, otherwise normal. On exam patient has wheezing and rhonchi no respiratory distress, no accessory muscle use. Labs are stable. Chest x-ray 1. Mild pneumonia right infrahilar region. Patient given continuous neb treatment, steroids, azithromycin, ceftriaxone. On reexamination patient continues to have diffuse wheezing, patient was ambulated on room air by title curative specialist Iftikhar and his sats were 90 to 91%. Patient will be admitted to hospitalist service due to pneumonia and hypoxia. Discussed case with Dr. Banuelos, ER attending who agrees with admission, advised to consult with hospitalist regarding antibiotic coverage given that patient was admitted last month.Discussed case with Dr. Fraga, hospitalist, he states that he will cover patient for potential hospital-acquired pneumonia, he will order antibiotics, he advised to order COVID-19 work-up, he will accept and resume care of patient, will admit to hospital, advised to bridge patient to [facility] with continuous O2 sat. - Differential Diagnosis PNA, URI, asthma exacerbation, reactive airway, bronchitis, viral Critical care attestation.: If time is entered above; I have spent that time in minutes in the direct care of this critically ill patient, excluding procedure time. ED Disposition Clinical Impression: Hypoxia Pneumonia Qualifiers: Pneumonia type: due to unspecified organism Laterality: right Lung location: middle lobe of lung Qualified Code(s): J18.9 - Pneumonia, unspecified organism Status asthmaticus Qualifiers: Asthma severity: unspecified severity Asthma persistence: unspecified Qualified Code(s): J45.902 - Unspecified asthma with status asthmaticus Disposition: OP ADMIT IP TO THIS HOSP Is pt being admited?: Yes Does the pt Need Aspirin: No Condition: Serious
[2020-09-13 05:55] LABS: C-Reactive Protein 1.8 mg/dL (0.00-1.30)
--- NOTE | 2020-09-13 07:14 | History and Physical Report ---
History of Present Illness Date of examination: 09/13/20 Date of admission: 09/13/20 04:33 Chief complaint: Shortness of breath History of present illness: Patient is a 39-year-old male with hx of ASthma, tobacco use and recent hospitalization for pneumonia presents emergency room with complaints of a productive cough that began a week ago. He has associated shortness of breath, wheezing, chest tightness, fatigue. He states he has had a couple of episodes of posttussive vomiting. He denies any fever, abdominal pain or diarrhea. He states that he just got a nebulizer machine a couple of days ago and has been doing treatments twice a day. He denies any recent travel or known sick contacts. He has a past medical history of asthma and bronchitis. He states he is a current smoker. No allergies to medications. Patient states that he was admitted in the hospital last month with pneumonia and at the time imaging studies CT was concerning for and believes he has pneumonia again. He reports no recent sick contacts and was complaint with his meds - Discharge Diagnoses (1) Sepsis Status: Acute (2) Acute hypoxemic respiratory failure Status: Acute (3) Hypoxia Status: Acute (4) Nicotine dependence Status: Acute Qualifiers: Nicotine product type: cigarettes Substance use status: in withdrawal Qualified Code(s): F17.213 - Nicotine dependence, cigarettes, with withdrawal (5) PNA (pneumonia) Status: Acute Qualifiers: Pneumonia type: due to unspecified organism Laterality: bilateral Lung location: unspecified part of lung Qualified Code(s): J18.9 - Pneumonia, unspecified organism (6) Asthma Status: Chronic Past History Past Medical History: hypertension, other (asthma) Past Surgical History: Other Social history: single Family history: no significant family history Medications and Allergies Allergies Allergy/AdvReac Type Severity Reaction Status Date / Time No Known Allergies Allergy Verified 04/25/20 15:17 Home Medications Medication Instructions Recorded Confirmed Last Taken Type ALBUTEROL NEB's [Proventil 0.083% 2.5 mg IH TID PRN 08/02/20 09/13/20 Unknown History NEBS] guaiFENesin [Robitussin] 200 mg PO Q6H PRN #20 tablet 08/05/20 09/13/20 Unknown Rx Review of Systems All systems: negative Constitutional: no fever, no chills, no sweats, no anorexia, no fatigue, no weakness, no malaise Cardiovascular: shortness of breath, no orthopnea, no palpitations, no rapid/ irregular heart beat Respiratory: cough, cough with sputum Exam - Physical Exam Narrative exam: VITAL SIGNS: Reviewed. GENERAL: The patient appears normally developed, Vital signs as documented. HEAD: No signs of head trauma. EYES: Pupils are equal. Extraocular motions intact. EARS: Hearing grossly intact. MOUTH: Oropharynx is normal. NECK: No adenopathy, no JVD. CHEST: Chest with clear breath sounds bilaterally. No wheezes, rales, or rhonchi. CARDIAC: Regular rate and rhythm. S1 and S2, without murmurs, gallops, or rubs. VASCULAR: No Edema. Peripheral pulses normal and equal in all extremities. ABDOMEN: Soft, non tender and non distended. No rebound or guarding, and no masses palpated. Bowel Sounds normal. MUSCULOSKELETAL: Good range of motion of all major joints. Extremities without clubbing, cyanosis or edema. NEUROLOGIC EXAM: Alert and oriented x 3 No focal sensory or strength deficits. Speech normal. Follows commands. PSYCHIATRIC: Mood normal. SKIN: detail exam as documented in skin assessment - Constitutional Vitals: Temp Pulse Resp BP Pulse Ox 98.2 F 90 18 129/67 94 09/13/20 03:06 09/13/20 03:06 09/13/20 03:06 09/13/20 03:06 09/13/20 03:06 Results - Labs CBC & Chem 7: 09/13/20 01:32 09/13/20 04:43 Labs: Laboratory Last Values WBC 11.3 K/mm3 (4.5-11.0) H 09/13/20 01:32 RBC 6.11 M/mm3 (3.65-5.03) H 09/13/20 01:32 Hgb 12.6 gm/dl (11.8-15.2) 09/13/20 01:32 Hct 39.4 % (35.5-45.6) 09/13/20 01:32 MCV 65 fl (84-94) L 09/13/20 01:32 MCH 21 pg (28-32) L 09/13/20 01:32 MCHC 32 % (32-34) 09/13/20 01:32 RDW 18.3 % (13.2-15.2) H 09/13/20 01:32 Plt Count 330 K/mm3 (140-440) 09/13/20 01:32 Lymph % (Auto) 31.7 % (13.4-35.0) 09/13/20 01:32 [place] % (Auto) 4.3 % (0.0-7.3) 09/13/20 01:32 Eos % (Auto) 5.3 % (0.0-4.3) H 09/13/20 01:32 Baso % (Auto) 0.8 % (0.0-1.8) 09/13/20 01:32 Lymph # (Auto) 3.6 K/mm3 (1.2-5.4) 09/13/20 01:32 [place] # (Auto) 0.5 K/mm3 (0.0-0.8) 09/13/20 01:32 Eos # (Auto) 0.6 K/mm3 (0.0-0.4) H 09/13/20 01:32 Baso # (Auto) 0.1 K/mm3 (0.0-0.1) 09/13/20 01:32 Seg Neutrophils % 57.9 % (40.0-70.0) 09/13/20 01:32 Seg Neutrophils # 6.6 K/mm3 (1.8-7.7) 09/13/20 01:32 D-Dimer 575.67 ng/mlDDU (0-234) H 09/13/20 04:43 Sodium 140 mmol/L (137-145) 09/13/20 01:32 Potassium 4.1 mmol/L (3.6-5.0) 09/13/20 01:32 Chloride 102.3 mmol/L (98-107) 09/13/20 01:32 Carbon Dioxide 29 mmol/L (22-30) 09/13/20 01:32 Anion Gap 13 mmol/L 09/13/20 01:32 BUN 8 mg/dL (9-20) L 09/13/20 01:32 Creatinine 0.8 mg/dL (0.8-1.3) 09/13/20 01:32 Estimated GFR > 60 ml/min 09/13/20 01:32 BUN/Creatinine Ratio 10 % 09/13/20 01:32 Glucose 197 mg/dL (75-100) H 09/13/20 04:43 Calcium 8.1 mg/dL (8.4-10.2) L 09/13/20 01:32 Ferritin 195.5 ng/mL (30.0-300.0) 09/13/20 04:43 Total Bilirubin < 0.20 mg/dL (0.1-1.2) 09/13/20 01:32 AST 20 units/L (5-40) 09/13/20 01:32 ALT 14 units/L (7-56) 09/13/20 01:32 Alkaline Phosphatase 111 units/L (35-129) 09/13/20 01:32 Lactate Dehydrogenase 187 units/L (91-180) H 09/13/20 04:43 C-Reactive Protein 1.80 mg/dL (0.00-1.30) H 09/13/20 04:43 Total Protein 5.2 g/dL (6.3-8.2) L 09/13/20 01:32 Albumin 1.8 g/dL (3.9-5) L 09/13/20 01:32 Albumin/Globulin Ratio 0.5 % 09/13/20 01:32 Assessment and Plan Assessment and plan: Patient is a 39-year-old male with hx of ASthma, tobacco use and recent hospitalization for pneumonia presents emergency room with complaints of a productive cough that began a week ago. He has associated shortness of breath, wheezing, chest tightness, fatigue. He states he has had a couple of episodes of posttussive vomiting. He denies any fever, abdominal pain or diarrhea. He states that he just got a nebulizer machine a couple of days ago and has been doing treatments twice a day. He denies any recent travel or known sick contacts. He has a past medical history of asthma and bronchitis. He states he is a current smoker. No allergies to medications. Patient states that he was admitted in the hospital last month with pneumonia and at the time imaging studies CT was concerning for and believes he has pneumonia again. He reports no recent sick contacts and was complaint with his meds Acute Hypoxica Respiratory failure Asthma Exacerbation Right Infrahilar Pneumonia possible GNR considering recent hospitalization Suspect 2019 Coronavirus infection Cough Severe Protien calorie Malnutrition TOBACCO USE DISORDER SIRS without Organ dysfunction with no evidence of Sepsis Admit to [facility] Rule out covid Daily pulse ox and wean oxygen Steriods for both the asthma and for Possible covid infection Continue abx, but will adjust to cover for HCAP Cough meds Pulmonary and ID consult Ticket Machine Operator consult Gentle with fluid hydration till COVID ruled out. Patient may need outpatient Immunology eval considering recurrent infection. ID consultation if COVID + or worsening infections process. Advance Directives: Yes Plan of care discussed with patient/family: Yes
[2020-09-13] MEDS ORDERED: ACETAMINOPHEN 325 MG TAB PO PRN (07:20)
[2020-09-13] MEDS ORDERED: MAGNESIUM HYDROXIDE (MOM) ORAL LIQD UDC PO PRN (07:20)
[2020-09-13] MEDS ORDERED: ONDANSETRON 4 MG/2 ML INJ IV PRN (07:20)
[2020-09-13] MEDS ORDERED: ALBUTEROL 2.5 MG/3 ML NEBU IH PRN (07:26)
[2020-09-13] MEDS ORDERED: guaiFENesin 200 MG TAB PO PRN (07:26)
[2020-09-13] MEDS ORDERED: CEFEPIME/NS 2 GM/100 ML 2 GM/100 ML BAG IV SCH (08:00)
[2020-09-13] MEDS ORDERED: VANCOMYCIN 1,500 MG in SODIUM CHLORIDE 0.9% 500 ML 500 ML IV ONE (08:00)
[2020-09-13] MEDS ORDERED: IPRATROPIUM/ALBUTEROL SULFATE 3 ML AMPUL.NEB IH SCH (08:00)
[2020-09-13] MEDS ORDERED: VANCOMYCIN PHARMACY TO DOSE IV SCH (08:00)
[2020-09-13] MEDS ORDERED: ARFORMOTEROL 15 MCG/2 ML NEBU IH ONE (08:10)
[2020-09-13] MEDS ORDERED: BUDESONIDE 0.5 MG/2 ML NEBU IH ONE (08:10)
[2020-09-13] MEDS: ARFORMOTEROL 15 MCG/2 ML NEBU IH SCH ×3 (08:23→20:51)
[2020-09-13] MEDS: BUDESONIDE 0.5 MG/2 ML NEBU IH SCH ×3 (08:25→20:51)
--- NOTE | 2020-09-13 09:21 | Consultation ---
History of Present Illness Consult date: 09/13/20 Requesting physician: OMKAR SANCHEZ Reason for consult: asthma History of present illness: 39 y/o male, with multiple visits to the ED and admissions to the hospital in 2019 admitted with worsening shortness of breath and cough. He has also had post-tussive emesis as well. He had a CTA done in April that showed patchy bilateral areas of GGO's. His echo is consistent with diastolic dysfunction and he has hypertension. Today, radiology has called a right infrahilar infiltrate as pneumonia. Medications and Allergies Allergies Allergy/AdvReac Type Severity Reaction Status Date / Time No Known Allergies Allergy Verified 04/25/20 15:17 Home Medications Medication Instructions Recorded Confirmed Last Taken Type ALBUTEROL NEB's [Proventil 0.083% 2.5 mg IH TID PRN 08/02/20 09/13/20 Unknown History NEBS] guaiFENesin [Robitussin] 200 mg PO Q6H PRN #20 tablet 08/05/20 09/13/20 Unknown Rx Active Meds: Active Medications Acetaminophen (Tylenol) 650 mg PO Q4H PRN PRN Reason: Pain MILD(1-3)/Fever >100.5/MUSE Albuterol (Proventil) 2.5 mg IH TID PRN PRN Reason: Wheezing Arformoterol Tartrate (Brovana Nebu) 15 mcg IH Q12HRT [facility] Last Admin: 09/13/20 08:24 Dose: 15 mcg Documented by: Budesonide (Pulmicort) 0.5 mg IH Q12HRT [facility] Last Admin: 09/13/20 08:26 Dose: Not Given Documented by: Docusate Sodium (Colace) 100 mg PO BID [facility] Famotidine (Pepcid) 20 mg PO BID [facility] Guaifenesin (Robitussin) 200 mg PO Q6H PRN PRN Reason: Cough Vancomycin HCl 1,500 mg/ (Sodium Chloride) 530 mls @ 333 mls/hr IV ONCE ONE; Protocol Stop: 09/13/20 09:35 Cefepime HCl (Cefepime/Ns 2 Gm/100 Ml) 2 gm in 100 mls @ 200 mls/hr IV Q8H [facility]; Protocol Magnesium Hydroxide (Milk Of Magnesia) 30 ml PO Q4H PRN PRN Reason: Constipation Methylprednisolone Sodium Succinate (Solu-Medrol) 60 mg IV Q8H [facility] Ondansetron HCl (Zofran) 4 mg IV Q4H PRN PRN Reason: Nausea And Vomiting Physical Examination Vital signs: Vital Signs Temp Pulse Resp BP Pulse Ox 98.0 F 88 16 151/102 94 09/12/20 22:53 09/12/20 22:53 09/12/20 22:53 09/12/20 22:53 09/12/20 22:53 Results - Laboratory Findings CBC and BMP: 09/13/20 01:32 09/13/20 04:43 PT/INR, D-dimer D-Dimer 575.67 ng/mlDDU (0-234) H 09/13/20 04:43 Abnormal lab findings: Abnormal Labs 09/13/20 09/13/20 09/13/20 01:32 01:32 04:43 WBC 11.3 H RBC 6.11 H MCV 65 L MCH 21 L RDW 18.3 H Eos % (Auto) 5.3 H Eos # (Auto) 0.6 H D-Dimer 575.67 H BUN 8 L Glucose Calcium 8.1 L Lactate Dehydrogenase C-Reactive Protein Total Protein 5.2 L Albumin 1.8 L 09/13/20 04:43 WBC RBC MCV MCH RDW Eos % (Auto) Eos # (Auto) D-Dimer BUN Glucose 197 H Calcium Lactate Dehydrogenase 187 H C-Reactive Protein 1.80 H Total Protein Albumin - Diagnostic Findings Chest x-ray: image reviewed Assessment and Plan 39 y/o male with acute asthma flare 1. Once off steroids as an outpatient, need to send IgE levels to assess for ABPA 2. Agree with steroids now but would switch to orals as early as today. Start at 60 and taper from there 3. Suggest BID PPI therapy as GERD could be worsening asthma symptoms 4. Will place on BID pulmicort and brovana therapy 5. Not sure if funding is an issue, but needs to have long acting maintenance therapy as an outpatient 6. At this point, doubt this is bacterial pneumonia, if able to provide sputum sample please send for culture, no real indication for bronch at this time. Thank you for this consult, will continue to follow with you.
[2020-09-13 09:35] LABS: ABG Base Excess 0.8 mmol/L (-2.0-3.0); ABG HCO3 24.9 mmol/L (20.0-26.0); ABG Methemoglobin 0.6 % (0.0-1.5); ABG Oxygen Saturation 95.3 % (95.0-99.0); ABG PCO2 38.1 mm Hg; ABG PH 7.433 pH Units (7.350-7.450)
[2020-09-13] MEDS: FAMOTIDINE 20 MG TAB PO SCH ×2 (09:46→22:45)
[2020-09-13] MEDS: methylPREDNISolone Sod Succinate 125 MG/2 ML INJ IV SCH ×2 (09:46→18:18)
[2020-09-13] MEDS: DOCUSATE SODIUM 100 MG CAP PO SCH ×2 (09:46→22:46)
--- NOTE | 2020-09-13 15:30 | Consultation ---
History of Present Illness - Reason for Consult Consult date: 09/13/20 - History of Present Illness 39-year-old man past medical history asthma, tobacco abuse presented to the hospital complaining of a productive cough. He notes that this began approximately week prior to admission and is associated with shortness of breath, wheezing, fatigue. He also complained of some episodes of posttussive vomiting. He otherwise denies any symptoms. He recently started nebulizer treatments for his asthma. He was admitted to the hospital in July for possible pneumonia based on CT findings. Afebrile since admission with a normal white count. Currently on vancomycin and cefepime. Covid testing negative. Blood cultures currently pending. Imaging personally reviewed: Chest x-ray: Mild right pneumonia. Review of Systems: Bold if positive, otherwise negative General: fevers, chills, rigors HEENT: visual disturbance, diplopia, eye pain Respiratory: cough, sputum, hemoptysis, shortness of breath Cardiovascular: chest pain, syncope Gastrointestinal: nausea, vomiting, diarrhea, abdominal pain Genitourinary: dysuria, hematuria, flank pain Musculoskeletal: neck pain, back pain, joint pain, edema Neurologic: headaches, seizures Hematologic: easy bruising or bleeding Endocrine: night sweats, acute weight loss Skin: rash, jaundice, redness Psychiatric: suicidal, homicidal ideation Past History Past Medical History: hypertension, other (asthma) Past Surgical History: Other Social history: single Family history: no significant family history Medications and Allergies Allergies Allergy/AdvReac Type Severity Reaction Status Date / Time No Known Allergies Allergy Verified 04/25/20 15:17 Home Medications Medication Instructions Recorded Confirmed Last Taken Type ALBUTEROL NEB's [Proventil 0.083% 2.5 mg IH TID PRN 08/02/20 09/13/20 Unknown History NEBS] guaiFENesin [Robitussin] 200 mg PO Q6H PRN #20 tablet 08/05/20 09/13/20 Unknown Rx Active Meds: Active Medications Acetaminophen (Tylenol) 650 mg PO Q4H PRN PRN Reason: Pain MILD(1-3)/Fever >100.5/MUSE Albuterol (Proventil) 2.5 mg IH TID PRN PRN Reason: Wheezing Arformoterol Tartrate (Brovana Nebu) 15 mcg IH Q12HRT [facility] Last Admin: 09/13/20 08:24 Dose: 15 mcg Documented by: Budesonide (Pulmicort) 0.5 mg IH Q12HRT [facility] Last Admin: 09/13/20 08:26 Dose: Not Given Documented by: Docusate Sodium (Colace) 100 mg PO BID [facility] Last Admin: 09/13/20 09:46 Dose: 100 mg Documented by: Famotidine (Pepcid) 20 mg PO BID [facility] Last Admin: 09/13/20 09:46 Dose: 20 mg Documented by: Guaifenesin (Robitussin) 200 mg PO Q6H PRN PRN Reason: Cough Cefepime HCl (Cefepime/Ns 2 Gm/100 Ml) 2 gm in 100 mls @ 200 mls/hr IV Q8H [facility]; Protocol Last Admin: 09/13/20 09:45 Dose: 200 mls/hr Documented by: Vancomycin HCl 1,250 mg/ (Sodium Chloride) 275 mls @ 166.667 mls/hr IV Q12H [facility] Magnesium Hydroxide (Milk Of Magnesia) 30 ml PO Q4H PRN PRN Reason: Constipation Methylprednisolone Sodium Succinate (Solu-Medrol) 60 mg IV Q8H [facility] Last Admin: 09/13/20 09:46 Dose: 60 mg Documented by: Ondansetron HCl (Zofran) 4 mg IV Q4H PRN PRN Reason: Nausea And Vomiting Physical Examination - Physical Exam Narrative exam: Physical Exam: Constitutional: Alert, cooperative. No acute distress Head, Ears, Nose: Normocephalic, atraumatic. External ears, nose normal Eyes: Conjunctivae/corneas clear. No icterus. No ptosis. Neck: Supple, no meningeal signs Oral: dentition fair, no thrush Cardiovascular: S1, S2 normal. Respiratory: Good air entry, clear to auscultation bilaterally GI: Soft, non-tender; bowel sounds normal. No peritoneal signs. Musculoskeletal: No pedal edema, no cyanosis. Skin: No rash or abscess Hem/Lymphatic: No palpable cervical or supraclavicular nodes. No lymphangitis Psych: Mood ok. Affect normal Neurological: Awake, alert, oriented. No gross abnormality - Constitutional Vitals: Vital Signs Temp Pulse Resp BP Pulse Ox 97.7 F 83 20 127/72 98 09/13/20 10:17 09/13/20 10:17 09/13/20 10:17 09/13/20 10:17 09/13/20 10:17 Temperature -Last 24 Hours Temperature 97.7 F Temperature 97.2 F Temperature 98.2 F Temperature 98.0 F Results - Labs CBC & Chem 7: 09/13/20 01:32 09/13/20 04:43 Labs: Abnormal lab results 09/13/20 09/13/20 09/13/20 Range/Units 01:32 01:32 04:43 WBC 11.3 H (4.5-11.0) K/mm3 RBC 6.11 H (3.65-5.03) M/mm3 MCV 65 L (84-94) fl MCH 21 L (28-32) pg RDW 18.3 H (13.2-15.2) % Eos % (Auto) 5.3 H (0.0-4.3) % Eos # (Auto) 0.6 H (0.0-0.4) K/mm3 D-Dimer 575.67 H (0-234) ng/mlDDU ABG pO2 (80.0-90.0) mm Hg Oxyhemoglobin (95.0-99.0) % BUN 8 L (9-20) mg/dL Glucose (75-100) mg/dL Calcium 8.1 L (8.4-10.2) mg/dL Lactate Dehydrogenase (91-180) units/L C-Reactive Protein (0.00-1.30) mg/dL Total Protein 5.2 L (6.3-8.2) g/dL Albumin 1.8 L (3.9-5) g/dL 09/13/20 09/13/20 Range/Units 04:43 09:15 WBC (4.5-11.0) K/mm3 RBC (3.65-5.03) M/mm3 MCV (84-94) fl MCH (28-32) pg RDW (13.2-15.2) % Eos % (Auto) (0.0-4.3) % Eos # (Auto) (0.0-0.4) K/mm3 D-Dimer (0-234) ng/mlDDU ABG pO2 72.0 L (80.0-90.0) mm Hg Oxyhemoglobin 93.4 L (95.0-99.0) % BUN (9-20) mg/dL Glucose 197 H (75-100) mg/dL Calcium (8.4-10.2) mg/dL Lactate Dehydrogenase 187 H (91-180) units/L C-Reactive Protein 1.80 H (0.00-1.30) mg/dL Total Protein (6.3-8.2) g/dL Albumin (3.9-5) g/dL Assessment and Plan Cultures: Blood culture 09/13/2020 pending A/P: 49-year-old man past medical history asthma, tobacco abuse admitted to the hospital complaining of cough #Questionable pneumonia: Agree with pulmonary assessment this is not likely to be a bacterial pneumonia given negative procalcitonin, normal white count, afebrile. Diagnosis possibly a viral pneumonia, but could be noninfectious causes as detailed by pulmonary. Would stop antibiotics. #Asthma: Currently on steroids #Tobacco abuse: Recommend cessation Recs: -Stop vancomycin and cefepime -Follow-up pulmonary Thank you for the consult, we will sign off. Please call with questions. MD [facility] O: [phone] F: [phone]
[2020-09-14] MEDS ORDERED: VANCOMYCIN 1,250 MG in SODIUM CHLORIDE 0.9% 250ML 250 ML IV SCH
[2020-09-14] MEDS: methylPREDNISolone Sod Succinate 125 MG/2 ML INJ IV SCH ×2 (00:49→10:38)
[2020-09-14 06:24] LABS: Basophils % (Auto) 0.2 % (0.0-1.8); Hemoglobin 11.5 gm/dl (11.8-15.2); Lymphocytes # (Auto) 1.2 K/mm3 (1.2-5.4); Lymphocytes % (Auto) 9.2 % (13.4-35.0); Mean Corpuscular HGB Conc 31 % (32-34); Monocytes # (Auto) 0.1 K/mm3 (0.0-0.8); Platelet Count 311 K/mm3 (140-440); Red Blood Count 5.67 M/mm3 (3.65-5.03); Red Cell Distribution Width 17.8 % (13.2-15.2)
[2020-09-14 06:29] LABS: Mean Corpuscular Volume 65 fl (84-94)
[2020-09-14 06:33] LABS: BUN/Creatinine Ratio 15; Blood Urea Nitrogen 12 mg/dL (9-20); Calcium 8.3 mg/dL (8.4-10.2); Hemolysis Index 3
[2020-09-14] MEDS: ARFORMOTEROL 15 MCG/2 ML NEBU IH SCH ×2 (08:45→21:17)
[2020-09-14] MEDS: BUDESONIDE 0.5 MG/2 ML NEBU IH SCH ×2 (08:45→21:17)
[2020-09-14] MEDS: FAMOTIDINE 20 MG TAB PO SCH ×2 (10:38→22:34)
[2020-09-14] MEDS: DOCUSATE SODIUM 100 MG CAP PO SCH ×2 (10:38→22:34)
--- NOTE | 2020-09-14 11:58 | Progress Note ---
Assessment and Plan 39 y/o male with acute asthma flare 09/14/2020: Suggest changing to Prednisone 60 and taper as follows. 60 daily for 4 days, 40 daily for 4 days, 20 daily for 4 days, 10 daily for 4 days then stop. Will need BID PPI therapy at discharge and he needs to take this daily. If able, please send out on Symbicort 160 2 puffs BID. Once off steroids for about 2 weeks then will check IGE levels as outpatient. Will sign off for now. Call if questions. 1. Once off steroids as an outpatient, need to send IgE levels to assess for ABPA 2. Agree with steroids now but would switch to orals as early as today. Start at 60 and taper from there 3. Suggest BID PPI therapy as GERD could be worsening asthma symptoms 4. Will place on BID pulmicort and brovana therapy 5. Not sure if funding is an issue, but needs to have long acting maintenance therapy as an outpatient 6. At this point, doubt this is bacterial pneumonia, if able to provide sputum sample please send for culture, no real indication for bronch at this time. Thank you for this consult, will continue to follow with you. Subjective Date of service: 09/14/20 Interval history: No acute events. Reviewed ID note from yesterday. Objective Vital Signs - 12hr 09/14/20 09/14/20 05:39 08:45 Temperature 97.4 F L Pulse Rate 72 Pulse Rate [ 79 Bilateral] Respiratory 20 Rate Respiratory 18 Rate [Bilateral ] Blood Pressure 155/89 O2 Sat by Pulse 96 Oximetry CBC and BMP: 09/14/20 05:06 09/14/20 05:06 ABG, PT/INR, D-dimer: ABG ABG pH 7.433 pH Units (7.350-7.450) 09/13/20 09:15 ABG pCO2 38.1 mm Hg 09/13/20 09:15 ABG pO2 72.0 mm Hg (80.0-90.0) L 09/13/20 09:15 ABG O2 Saturation 95.3 % (95.0-99.0) 09/13/20 09:15 PT/INR, D-dimer D-Dimer 575.67 ng/mlDDU (0-234) H 09/13/20 04:43 Abnormal lab findings: Abnormal Labs 09/13/20 09/13/20 09/13/20 01:32 01:32 04:43 WBC 11.3 H RBC 6.11 H Hgb MCV 65 L MCH 21 L MCHC RDW 18.3 H Lymph % (Auto) Eos % (Auto) 5.3 H Eos # (Auto) 0.6 H Seg Neutrophils % Seg Neutrophils # D-Dimer 575.67 H ABG pO2 Oxyhemoglobin BUN 8 L Glucose Calcium 8.1 L Lactate Dehydrogenase C-Reactive Protein Total Protein 5.2 L Albumin 1.8 L 09/13/20 09/13/20 09/14/20 04:43 09:15 05:06 WBC 13.3 H RBC 5.67 H Hgb 11.5 L MCV 65 L MCH 20 L MCHC 31 L RDW 17.8 H Lymph % (Auto) 9.2 L Eos % (Auto) Eos # (Auto) Seg Neutrophils % 89.6 H Seg Neutrophils # 11.9 H D-Dimer ABG pO2 72.0 L Oxyhemoglobin 93.4 L BUN Glucose 197 H Calcium Lactate Dehydrogenase 187 H C-Reactive Protein 1.80 H Total Protein Albumin 09/14/20 05:06 WBC RBC Hgb MCV MCH MCHC RDW Lymph % (Auto) Eos % (Auto) Eos # (Auto) Seg Neutrophils % Seg Neutrophils # D-Dimer ABG pO2 Oxyhemoglobin BUN Glucose 145 H Calcium 8.3 L Lactate Dehydrogenase C-Reactive Protein Total Protein Albumin
--- NOTE | 2020-09-14 12:59 | Progress Note ---
Assessment and Plan Assessment and plan: Patient is a 39-year-old male with hx of ASthma, tobacco use and recent hospitalization for pneumonia presents emergency room with complaints of a productive cough that began a week ago. He has associated shortness of breath, wheezing, chest tightness, fatigue. He states he has had a couple of episodes of posttussive vomiting. He denies any fever, abdominal pain or diarrhea. He states that he just got a nebulizer machine a couple of days ago and has been doing treatments twice a day. He denies any recent travel or known sick contacts. He has a past medical history of asthma and bronchitis. He states he is a current smoker. No allergies to medications. Patient states that he was admitted in the hospital last month with pneumonia and at the time imaging studies CT was concerning for and believes he has pneumonia again. He reports no recent sick contacts and was complaint with his meds Acute Hypoxica Respiratory failure Asthma Exacerbation Right Infrahilar Pneumonia possible GNR considering recent hospitalization Suspect 2019 Coronavirus infection Cough Severe Protien calorie Malnutrition TOBACCO USE DISORDER SIRS without Organ dysfunction with no evidence of Sepsis PLAN 39 y/o male with acute asthma flare Plan Patient shows some clinical improvement. COVID-19 testing is negative. Pulmonary input as noted below and has been discussed with the patient in detail 09/14/2020: Suggest changing to Prednisone 60 and taper as follows. 60 daily for 4 days, 40 daily for 4 days, 20 daily for 4 days, 10 daily for 4 days then stop. Will need BID PPI therapy at discharge and he needs to take this daily. If able, please send out on Symbicort 160 2 puffs BID. Once off steroids for about 2 weeks then will check IGE levels as outpatient. Will sign off for now. Call if questions. 1. Once off steroids as an outpatient, need to send IgE levels to assess for ABPA 2. Agree with steroids now but would switch to orals as early as today. Start at 60 and taper from there 3. Suggest BID PPI therapy as GERD could be worsening asthma symptoms 4. Will place on BID pulmicort and brovana therapy 5. Not sure if funding is an issue, but needs to have long acting maintenance therapy as an outpatient 6. At this point, doubt this is bacterial pneumonia, if able to provide sputum sample please send for culture, no real indication for bronch at this time. Thank you for this consult, will continue to follow with you. Antibiotics has been discontinued steroids adjusted as recommended Plan discussed in detail with the patient anticipate discharge in a.m. Patient may need outpatient Immunology eval considering recurrent infection. History Interval history: Patient seen and examined still with mild shortness of breath although improving greatly. No fever noted. Hospitalist Physical - Physical exam Narrative exam: VITAL SIGNS: Reviewed. GENERAL: The patient appears normally developed, Vital signs as documented. HEAD: No signs of head trauma. EYES: Pupils are equal. Extraocular motions intact. EARS: Hearing grossly intact. MOUTH: Oropharynx is normal. NECK: No adenopathy, no JVD. CHEST: Chest with mild wheeze and improved aeration breath sounds bilaterally. No wheezes, rales, or rhonchi. CARDIAC: Regular rate and rhythm. S1 and S2, without murmurs, gallops, or rubs. VASCULAR: No Edema. Peripheral pulses normal and equal in all extremities. ABDOMEN: Soft, non tender and non distended. No rebound or guarding, and no masses palpated. Bowel Sounds normal. MUSCULOSKELETAL: Good range of motion of all major joints. Extremities without clubbing, cyanosis or edema. NEUROLOGIC EXAM: Alert and oriented x 3 No focal sensory or strength deficits. Speech normal. Follows commands. PSYCHIATRIC: Mood normal. SKIN: detail exam as documented in skin assessment - Constitutional Vitals: Temp Pulse Resp BP Pulse Ox 97.5 F L 69 18 146/78 91 09/14/20 11:36 09/14/20 11:36 09/14/20 11:36 09/14/20 11:36 09/14/20 11:36 Results - Labs CBC & Chem 7: 09/14/20 05:06 09/14/20 05:06 Labs: Laboratory Last Values WBC 13.3 K/mm3 (4.5-11.0) H 09/14/20 05:06 RBC 5.67 M/mm3 (3.65-5.03) H 09/14/20 05:06 Hgb 11.5 gm/dl (11.8-15.2) L 09/14/20 05:06 Hct 37.0 % (35.5-45.6) 09/14/20 05:06 MCV 65 fl (84-94) L 09/14/20 05:06 MCH 20 pg (28-32) L 09/14/20 05:06 MCHC 31 % (32-34) L 09/14/20 05:06 RDW 17.8 % (13.2-15.2) H 09/14/20 05:06 Plt Count 311 K/mm3 (140-440) 09/14/20 05:06 Lymph % (Auto) 9.2 % (13.4-35.0) L 09/14/20 05:06 Andrews % (Auto) 1.0 % (0.0-7.3) 09/14/20 05:06 Eos % (Auto) 0.0 % (0.0-4.3) 09/14/20 05:06 Baso % (Auto) 0.2 % (0.0-1.8) 09/14/20 05:06 Lymph # (Auto) 1.2 K/mm3 (1.2-5.4) 09/14/20 05:06 Andrews # (Auto) 0.1 K/mm3 (0.0-0.8) 09/14/20 05:06 Eos # (Auto) 0.0 K/mm3 (0.0-0.4) 09/14/20 05:06 Baso # (Auto) 0.0 K/mm3 (0.0-0.1) 09/14/20 05:06 Seg Neutrophils % 89.6 % (40.0-70.0) H 09/14/20 05:06 Seg Neutrophils # 11.9 K/mm3 (1.8-7.7) H 09/14/20 05:06 D-Dimer 575.67 ng/mlDDU (0-234) H 09/13/20 04:43 ABG pH 7.433 pH Units (7.350-7.450) 09/13/20 09:15 ABG pCO2 38.1 mm Hg 09/13/20 09:15 ABG pO2 72.0 mm Hg (80.0-90.0) L 09/13/20 09:15 ABG HCO3 24.9 mmol/L (20.0-26.0) 09/13/20 09:15 ABG O2 Saturation 95.3 % (95.0-99.0) 09/13/20 09:15 ABG O2 Content 18.7 (0.0-44) 09/13/20 09:15 ABG Base Excess 0.8 mmol/L (-2.0-3.0) 09/13/20 09:15 ABG Hemoglobin 14.2 gm/dl (14.0-18.0) 09/13/20 09:15 ABG Carboxyhemoglobin 1.4 % (0.0-5.0) 09/13/20 09:15 ABG Methemoglobin 0.6 % (0.0-1.5) 09/13/20 09:15 Oxyhemoglobin 93.4 % (95.0-99.0) L 09/13/20 09:15 FiO2 21 % 09/13/20 09:15 Sodium 137 mmol/L (137-145) 09/14/20 05:06 Potassium 4.1 mmol/L (3.6-5.0) 09/14/20 05:06 Chloride TNR 09/14/20 05:06 Carbon Dioxide 28 mmol/L (22-30) 09/14/20 05:06 Anion Gap 9 mmol/L 09/14/20 05:06 BUN 12 mg/dL (9-20) 09/14/20 05:06 Creatinine 0.8 mg/dL (0.8-1.3) 09/14/20 05:06 Estimated GFR > 60 ml/min 09/14/20 05:06 BUN/Creatinine Ratio 15 % 09/14/20 05:06 Glucose 145 mg/dL (75-100) H 09/14/20 05:06 Calcium 8.3 mg/dL (8.4-10.2) L 09/14/20 05:06 Ferritin 195.5 ng/mL (30.0-300.0) 09/13/20 04:43 Total Bilirubin < 0.20 mg/dL (0.1-1.2) 09/13/20 01:32 AST 20 units/L (5-40) 09/13/20 01:32 ALT 14 units/L (7-56) 09/13/20 01:32 Alkaline Phosphatase 111 units/L (35-129) 09/13/20 01:32 Lactate Dehydrogenase 187 units/L (91-180) H 09/13/20 04:43 C-Reactive Protein 1.80 mg/dL (0.00-1.30) H 09/13/20 04:43 Total Protein 5.2 g/dL (6.3-8.2) L 09/13/20 01:32 Albumin 1.8 g/dL (3.9-5) L 09/13/20 01:32 Albumin/Globulin Ratio 0.5 % 09/13/20 01:32 Procalcitonin < 0.05 ng/mL (<0.15) 09/13/20 04:43 Coronavirus (PCR) Negative (Negative) 09/13/20 Unknown Microbiology: Microbiology 09/13/20 04:43 Peripheral/Venous Blood Culture - Preliminary NO GROWTH AFTER 24 HOURS 09/13/20 05:21 Peripheral/Venous Blood Culture - Preliminary NO GROWTH AFTER 24 HOURS Garibay/IV: Voiding Method Toilet IV Catheter Type [Right INT / Saline Lock Antecubital] Active Medications - Current Medications Current Medications: Generic Name Dose Route Start Last Admin Trade Name Freq PRN Reason Stop Dose Admin Acetaminophen 650 mg 09/13/20 07:20 Tylenol PO Q4H PRN Pain MILD(1-3)/Fever >100.5/MUSE Albuterol 2.5 mg 09/13/20 07:26 Proventil IH TID PRN Wheezing Arformoterol Tartrate 15 mcg 09/13/20 08:00 09/14/20 08:45 Brovana Nebu IH 15 mcg Q12HRT [facility] Administration Budesonide 0.5 mg 09/13/20 08:00 09/14/20 08:45 Pulmicort IH 0.5 mg Q12HRT [facility] Administration Docusate Sodium 100 mg 09/13/20 10:00 09/14/20 10:38 Colace PO 100 mg BID [facility] Administration Famotidine 20 mg 09/13/20 10:00 09/14/20 10:38 Pepcid PO 20 mg BID [facility] Administration Guaifenesin 200 mg 09/13/20 07:26 09/14/20 00:50 Robitussin PO 200 mg Q6H PRN Administration Cough Magnesium Hydroxide 30 ml 09/13/20 07:20 Milk Of Magnesia PO Q4H PRN Constipation Ondansetron HCl 4 mg 09/13/20 07:20 Zofran IV Q4H PRN Nausea And Vomiting Nutrition/Malnutrition Assess - Dietary Evaluation Nutrition/Malnutrition Findings: Nutrition Notes Start: 09/13/20 08:23 Freq: Status: Active Protocol: Document 09/13/20 08:23 LM (Rec: 09/13/20 08:26 LM [email or web address]) Nutrition Notes Need for Assessment generated from: MD Order Initial or Follow up Brief Note Other Pertinent Diagnosis ARF, Suspected COVID-19, PNA, SIRS, asthma exacerbation Subjective/Other Information MD consult for malnutrition. Pt is in ED. Nutrition Intervention Follow-Up By: 09/14/20 Additional Comments F/U for assessment
[2020-09-15 06:52] VITALS: BP 151/92
--- NOTE | 2020-09-15 07:46 | Discharge Summary ---
Providers - Providers Date of Admission: 09/13/20 04:33 Attending physician: OMKAR SANCHEZ MD 09/13/20 07:20 Consult to Physician [CONS] Routine Comment: Consulting Provider: NELA MAI Physician Instructions: Reason For Exam: RECURRENT PNEUMONIA 09/13/20 07:23 Consult to Dietitian/Nutrition [CONS] Routine Physician Instructions: Reason For Exam: Reason for Consult: Malnutrition Primary care physician: BLUEPRINTER Hospitalization Reason for admission: ASTHMA EXACERBATION Condition: Serious Hospital course: Patient is a 39-year-old male with hx of ASthma, tobacco use and recent hospitalization for pneumonia presents emergency room with complaints of a productive cough that began a week ago. He has associated shortness of breath, wheezing, chest tightness, fatigue. He states he has had a couple of episodes of posttussive vomiting. He denies any fever, abdominal pain or diarrhea. He states that he just got a nebulizer machine a couple of days ago and has been doing treatments twice a day. He denies any recent travel or known sick contacts. He has a past medical history of asthma and bronchitis. He states he is a current smoker. No allergies to medications. Patient states that he was admitted in the hospital last month with pneumonia and at the time imaging studies CT was concerning for and believes he has pneumonia again. He reports no recent sick contacts and was complaint with his meds 09/14/2020: Suggest changing to Prednisone 60 and taper as follows. 60 daily for 4 days, 40 daily for 4 days, 20 daily for 4 days, 10 daily for 4 days then stop. Will need BID PPI therapy at discharge and he needs to take this daily. If able, please send out on Symbicort 160 2 puffs BID. Once off steroids for about 2 weeks then will check IGE levels as outpatient. Antibiotics has been discontinued steroids adjusted as recommended Plan discussed in detail with the patient anticipate discharge in a.m. Patient may need outpatient Immunology eval considering recurrent infection. Patient clinically improve, Educated on his clinically disease process. No Acute Hypoxia Respiratory failure Asthma Exacerbation Right Infrahilar Pneumonia possible GNR considering recent hospitalization Suspect 2019 Coronavirus infection Cough Severe Protien calorie Malnutrition TOBACCO USE DISORDER SIRS without Organ dysfunction with no evidence of Sepsis Disposition: DC-01 TO HOME OR SELFCARE Time spent for discharge: 35 MINS Core Measure Documentation - Palliative Care Palliative Care/ Comfort Measures: Not Applicable - Core Measures Any of the following diagnoses?: none Exam - Physical Exam Narrative exam: VITAL SIGNS: Reviewed. GENERAL: The patient appears normally developed, Vital signs as documented. HEAD: No signs of head trauma. EYES: Pupils are equal. Extraocular motions intact. EARS: Hearing grossly intact. MOUTH: Oropharynx is normal. NECK: No adenopathy, no JVD. CHEST: Chest with mild wheeze and improved aeration breath sounds bilaterally. No wheezes, rales, or rhonchi. CARDIAC: Regular rate and rhythm. S1 and S2, without murmurs, gallops, or rubs. VASCULAR: No Edema. Peripheral pulses normal and equal in all extremities. ABDOMEN: Soft, non tender and non distended. No rebound or guarding, and no masses palpated. Bowel Sounds normal. MUSCULOSKELETAL: Good range of motion of all major joints. Extremities without clubbing, cyanosis or edema. NEUROLOGIC EXAM: Alert and oriented x 3 No focal sensory or strength deficits. Speech normal. Follows commands. PSYCHIATRIC: Mood normal. SKIN: detail exam as documented in skin assessment - Constitutional Vitals: Temp Pulse Resp BP Pulse Ox 97.4 F L 63 18 151/92 91 09/15/20 06:40 09/15/20 06:40 09/15/20 06:40 09/15/20 06:40 09/15/20 06:40 Plan Activity: advance as tolerated, fall precautions Diet: low fat Special Instructions: record daily weights, record daily BP diary Additional Instructions: NEEDS TO HAVE WORK UP FOR ALLERGIC MANAGEMENT Follow up with: PRIMARY CARE, [Primary Care Provider] - 3-5 Days FLAKITO MONTEIRO MD [Staff Physician] - 7 Days Prescriptions: Albuterol Mdi (or & Nicu Only) [ProAir HFA Inhaler] 2 puff IH QID PRN #8.5 gram PRN Reason: Shortness Of Breath Budesonide/Formoterol Fumarate [Symbicort 160-4.5 Mcg Inhaler] 10.2 gm IH BID #1 hfa.aer.ad
[2020-09-15] MEDS: ARFORMOTEROL 15 MCG/2 ML NEBU IH SCH (08:02)
[2020-09-15] MEDS: BUDESONIDE 0.5 MG/2 ML NEBU IH SCH (08:02)
[2020-09-15] MEDS: FAMOTIDINE 20 MG TAB PO SCH (09:38)
[2020-09-15] MEDS: DOCUSATE SODIUM 100 MG CAP PO SCH (09:38)
[2020-09-15] MEDS ORDERED: predniSONE 20 MG TAB PO SCH (10:00)
== END 2020-09-15 14:57 | disposition home or self-care (01) ==
LOC: ED 21:27 → 3A 09-13 04:33
PROVIDERS: ADMIT Internal Medicine Geriatric Medicine; ATTEND Internal Medicine
DX: A41.9 Sepsis, unspecified organism (principal); Z20.828 Contact with and (suspected) exposure to other viral communicable diseases; J96.01 Acute respiratory failure with hypoxia; J45.901 Unspecified asthma with (acute) exacerbation; J18.9 Pneumonia, unspecified organism; E43 Unspecified severe protein-calorie malnutrition; F17.213 Nicotine dependence, cigarettes, with withdrawal; R65.21 Severe sepsis with septic shock; M10.9 Gout, unspecified; J45.902 Unspecified asthma with status asthmaticus; Z68.21 Body mass index [BMI] 21.0-21.9, adult
CPT/HCPCS: 36415; 36600; 71046; 80048; 80053; 82728; 82803; 82947; 83615; 84145; 85025; 85379; 86140; 87040; 87070; 87116; 87205; 94640; 96365; 96366; 96367; 96375; 96376; 99284; G0378; J0456; J0692; J0696; J1100; J2930; J3370; J7040; J7050; J7512; U0003

== ENCOUNTER 2020-10-17 21:21 | Inpatient (IN) | payer OTHER ==
[2020-10-17] MEDS ORDERED: dexAMETHasone 20 MG/5 ML VIAL IV ONE (22:35)
[2020-10-17] MEDS ORDERED: ALBUTEROL 2.5 MG/3 ML NEBU IH ONE (22:35)
[2020-10-17] MEDS ORDERED: IPRATROPIUM 0.02% NEBU 2.5 ML IH ONE (22:35)
--- NOTE | 2020-10-17 22:40 | Emergency Department Report ---
ED General Adult HPI - General Chief complaint: Adult Asthma Stated complaint: SOB COUGH FATIGUE SWEATS Time Seen by Provider: 10/17/20 22:34 Source: patient Mode of arrival: Ambulatory Limitations: No Limitations - History of Present Illness Initial comments: Patient is a 39-year-old -S[place]i male with a history of asthma who presents for stated asthma attack x2 days. Symptoms include shortness of breath and wheezing. Cough productive thick yellow. There is no fever, no nausea vomiting. Patient denies suspicious contacts or travel. Symptoms are exacerbated by environmental exposure. Symptoms are relieved by nothing tried. Patient advises he is out of budesonide inhaler. - Related Data Previous Rx's Medication Instructions Recorded Last Taken Type guaiFENesin [Robitussin] 200 mg PO Q6H PRN #20 tablet 08/05/20 Unknown Rx Albuterol Mdi (or & Nicu Only) 2 puff IH QID PRN #8.5 gram 09/15/20 Unknown Rx [ProAir HFA Inhaler] Budesonide/Formoterol Fumarate 10.2 gm IH BID #1 hfa.aer.ad 09/15/20 Unknown Rx [Symbicort 160-4.5 Mcg Inhaler] Allergies Allergy/AdvReac Type Severity Reaction Status Date / Time No Known Allergies Allergy Verified 04/25/20 15:17 ED Review of Systems ROS: Stated complaint: SOB COUGH FATIGUE SWEATS Other details as noted in HPI Constitutional: malaise. denies: chills, fever Eyes: denies: eye pain, eye discharge, vision change ENT: congestion. denies: ear pain, throat pain Respiratory: cough, shortness of breath, wheezing Cardiovascular: denies: chest pain, palpitations Endocrine: see HPI Gastrointestinal: denies: abdominal pain, nausea, vomiting, diarrhea Genitourinary: denies: urgency, dysuria Musculoskeletal: denies: back pain, joint swelling, arthralgia Skin: denies: rash, lesions Neurological: denies: headache, weakness, paresthesias Psychiatric: denies: anxiety, depression Hematological/Lymphatic: denies: easy bleeding, easy bruising ED Past Medical Hx - Past Medical History Previous Medical History?: Yes Hx Asthma: Yes Additional medical history: gout, Bronchitis, pancreatitis - Social History Smoking Status: Former Smoker Substance Use Type: None - Medications Home Medications: Home Medications Medication Instructions Recorded Confirmed Last Taken Type guaiFENesin [Robitussin] 200 mg PO Q6H PRN #20 tablet 08/05/20 09/13/20 Unknown Rx Albuterol Mdi (or & Nicu Only) 2 puff IH QID PRN #8.5 gram 09/15/20 Unknown Rx [ProAir HFA Inhaler] Budesonide/Formoterol Fumarate 10.2 gm IH BID #1 hfa.aer.ad 09/15/20 Unknown Rx [Symbicort 160-4.5 Mcg Inhaler] ED Physical Exam - General Limitations: No Limitations General appearance: alert, in no apparent distress - Head Head exam: Present: atraumatic, normocephalic - Eye Eye exam: Present: normal appearance, EOMI Pupils: Present: normal accommodation - ENT ENT exam: Present: normal orophraynx, mucous membranes moist, TM's normal bilaterally, normal external ear exam - Neck Neck exam: Present: normal inspection, full ROM. Absent: tenderness, lymphadenopathy - Respiratory Respiratory exam: Present: wheezes, stridor, prolonged expiratory. Absent: rales, rhonchi, chest wall tenderness - Cardiovascular Cardiovascular Exam: Present: normal rhythm, tachycardia, normal heart sounds. Absent: systolic murmur, diastolic murmur, rubs, gallop - GI/Abdominal GI/Abdominal exam: Present: soft, normal bowel sounds. Absent: distended, tenderness, bruit, hernia - Rectal Rectal exam: Present: deferred - Extremities Exam Extremities exam: Present: normal inspection, full ROM, normal capillary refill - Back Exam Back exam: Present: normal inspection, full ROM. Absent: tenderness, CVA tenderness (R), CVA tenderness (L) - Neurological Exam Neurological exam: Present: alert, oriented X3, CN II-XII intact, normal gait - Psychiatric Psychiatric exam: Present: normal affect - Skin Skin exam: Present: warm, dry, intact, normal color. Absent: rash ED Course Vital Signs 10/17/20 10/17/20 22:25 22:57 Temperature 98.0 F Pulse Rate 127 H Pulse Rate [ 122 H Bilateral Throughout] Respiratory 24 Rate Respiratory 22 Rate [Bilateral Throughout] Blood Pressure 127/72 O2 Sat by Pulse 94 Oximetry - Reevaluation(s) Reevaluation #1: 2300 : albuterol, atrovent neb, Decadron IV, CXR: R Middle Lobe Pneumonia 10/18/20 2300 10/18/20 01:15 Reevaluation #2: symptom persist, second nebulizer, 5mg/ Atrovent 0,5 mg neb, Magnesium 2gm IVPB, pt ambulated with increase in wheezing, plan: consult hospitalist for admission , Dx : Asthma exacerbation, Pneumonia RML. 10/18/20 12 MN Reevaluation #3: DDimer 1284, CTA r/o PE pending. 10/18/20 01:32 ED Medical Decision Making - Lab Data Result diagrams: 10/18/20 00:10 10/18/20 00:10 - Radiology Data Radiology results: report reviewed, image reviewed Findings Reporting MD: Samuel Lima Dictation Time: October 17, 2020 22:25 Medical Claims Processor: Not available Lawyer Date: CHEST 1 VIEW 2254 INDICATION / CLINICAL INFORMATION: sob wheezing COMPARISON: 09/13/2020 FINDINGS: SUPPORT DEVICES: None HEART / MEDIASTINUM: No significant abnormality. LUNGS / PLEURA: New mild asymmetric density seen laterally in the right base. Possibly this could represent mild developing pneumonitis. Left lung field is clear. No pneumothorax. ADDITIONAL FINDINGS: No significant additional findings. IMPRESSION: Possible mild pneumonitis in the right base Signer Name: Samuel Lima MD Signed: 10/17/2020 10:25 PM Workstation Name: [id number] - Medical Decision Making C Xray : Right Middle lob Pneumonia, Asthma, symptoms persist after me dications given in ed, plan: Admit to Hospitalist Dx Asthma, Pnueumonia CAP, Covid screening pending, symptoms are improved with medctions given in ED, pt is ambulatory with steady gait however with increase in wheezing with ambulations and environmental exposure, plan : admit to Hospitalist , consulted same at this time. recommendation: admit, r/o covid 19, asthma exacerbation, pneumonia CAP, pt verbalized agreement and understanding of same. pt care handoff to Hospitalist at this time. Critical care attestation.: If time is entered above; I have spent that time in minutes in the direct care of this critically ill patient, excluding procedure time. ED Disposition Clinical Impression: CAP (community acquired pneumonia) Qualifiers: Laterality: right Lung location: middle lobe of lung Qualified Code(s): J18.9 - Pneumonia, unspecified organism Asthma Qualifiers: Asthma severity: moderate Asthma persistence: persistent Asthma complication type: with acute exacerbation Qualified Code(s): J45.41 - Moderate persistent asthma with (acute) exacerbation Disposition: TO HOME OR SELFCARE Is pt being admited?: Yes Does the pt Need Aspirin: No Condition: Stable Instructions: Asthma (ED), Bacterial Pneumonia (ED) Time of Disposition: 01:50
--- NOTE | 2020-10-17 23:30 | XRay Report ---
CHEST 1 VIEW 2255 INDICATION / CLINICAL INFORMATION: sob wheezing COMPARISON: 09/13/2020 FINDINGS: SUPPORT DEVICES: None HEART / MEDIASTINUM: No significant abnormality. LUNGS / PLEURA: New mild asymmetric density seen laterally in the right base. Possibly this could rep resent mild developing pneumonitis. Left lung field is clear. No pneumothorax. ADDITIONAL FINDINGS: No significant additional findings. IMPRESSION: Possible mild pneumonitis in the right base Signer Name: Samuel Lima MD Signed: 10/17/2020 11:25 PM Workstation Name: [id number]
[2020-10-17] MEDS ORDERED: IBUPROFEN 800 MG TAB PO ONE (23:56)
[2020-10-17] MEDS ORDERED: cefTRIAXone/NS 1 GM/50 ML 1 GM/50 ML BAG IV ONE (23:56)
[2020-10-17] MEDS ORDERED: MAGNESIUM SULFATE 2 GM/50 ML BAG IV ONE (23:58)
[2020-10-18] MEDS ORDERED: AZITHROMYCIN 250 MG TAB PO ONE (01:10)
[2020-10-18 01:15] LABS: Basophils # (Auto) 0.1 K/mm3 (0.0-0.1); Basophils % (Auto) 0.4 % (0.0-1.8); Eosinophils # (Auto) 0.6 K/mm3 (0.0-0.4); Eosinophils % (Auto) 4.7 % (0.0-4.3); Hematocrit 34.1 % (35.5-45.6); Lymphocytes # (Auto) 1.8 K/mm3 (1.2-5.4); Lymphocytes % (Auto) 12.9 % (13.4-35.0); Mean Corpuscular HGB Conc 32 % (32-34); Monocytes # (Auto) 0.4 K/mm3 (0.0-0.8); Monocytes % (Auto) 2.9 % (0.0-7.3); Platelet Count 274 K/mm3 (140-440); Red Blood Count 5.29 M/mm3 (3.65-5.03); Red Cell Distribution Width 16.9 % (13.2-15.2)
[2020-10-18 01:16] LABS: Mean Corpuscular Volume 64 fl (84-94)
[2020-10-18] MEDS ORDERED: SODIUM CHLORIDE 0.9% 1000 ML 1,000 ML IV ONE (01:31)
[2020-10-18 01:38] LABS: Alanine Aminotransferase 10 units/L (7-56); Albumin 1.4 g/dL (3.9-5); BUN/Creatinine Ratio 9; Blood Urea Nitrogen 10 mg/dL (9-20); Calcium 7.3 mg/dL (8.4-10.2); Hemolysis Index 3
[2020-10-18] MEDS ORDERED: ONDANSETRON 4 MG/2 ML INJ IV PRN (02:31)
[2020-10-18] MEDS ORDERED: ACETAMINOPHEN 325 MG TAB PO PRN (02:31)
--- NOTE | 2020-10-18 02:53 | History and Physical Report ---
History of Present Illness Date of examination: 10/18/20 Date of admission: 10/18/2020 Chief complaint: SOB and weakness History of present illness: -Greek male with history of asthma, gout, bronchitis, pancreatitis who presents to [facility] ED with complaints of shortness of breath and generalized weakness x2 days. Patient states that he has been having increased shortness of breath accompanied with wheezing and cough with occasional thick white/yellow sp utum production. He is unable to take more than 10 steps without becoming weak and short of breath. Review of medical record shows patient was admitted approximately 1 month ago with similar complaints. At which time he was tested for Covid and was negative. He endorses chills, noncardiac chest pain, generalized weakness, and loss of smell x2 weeks. Denies nausea, vomiting, fever, headache, loss of taste, sore throat, abdominal pain, chest pain, recent sick contacts Past History Past Medical History: other (Asthma, gout, bronchitis, prior keratitis) Past Surgical History: No surgical history Social history: single, lives with family, smoking. denies: alcohol abuse, prescription drug abuse, IV drug use Family history: other (Denies family medical history) Medications and Allergies Allergies Allergy/AdvReac Type Severity Reaction Status Date / Time No Known Allergies Allergy Verified 04/25/20 15:17 Home Medications Medication Instructions Recorded Confirmed Last Taken Type guaiFENesin [Robitussin] 200 mg PO Q6H PRN #20 tablet 08/05/20 09/13/20 Unknown Rx Albuterol Mdi (or & Nicu Only) 2 puff IH QID PRN #8.5 gram 09/15/20 Unknown Rx [ProAir HFA Inhaler] Budesonide/Formoterol Fumarate 10.2 gm IH BID #1 hfa.aer.ad 09/15/20 Unknown Rx [Symbicort 160-4.5 Mcg Inhaler] Active Meds: Active Medications Acetaminophen (Acetaminophen 325 Mg Tab) 650 mg PO Q4H PRN PRN Reason: Pain MILD(1-3)/Fever >100.5/MUSE Albuterol/Ipratropium (Ipratropium/Albuterol Sulfate 3 Ml Ampul.Neb) 1 ampul IH Q6HRT GUSTAVO Budesonide (Budesonide 0.5 Mg/2 Ml Nebu) 0.5 mg IH Q12HRT GUSTAVO Enoxaparin Sodium (Enoxaparin 40 Mg/0.4 Ml Inj) 40 mg SUB-Q QDAY [facility] Guaifenesin (Guaifenesin Er 600 Mg Tab) 600 mg PO BID [facility] Calcium Gluconate 1,000 mg/ (Sodium Chloride) 110 mls @ 660 mls/hr IV ONCE ONE Stop: 10/18/20 02:42 Cefepime HCl (Cefepime/Ns 1 Gm/100 Ml) 1 gm in 100 mls @ 200 mls/hr IV Q8H GUSTAVO; Protocol Methylprednisolone Sodium Succinate (Methylprednisolone Sod Succinate 40 Mg/1 Ml Inj) 40 mg IV Q6HR [facility] Nicotine (Nicotine 14 Mg/24 Hr Patch) 14 mg TD QDAY [facility] Ondansetron HCl (Ondansetron 4 Mg/2 Ml Inj) 4 mg IV Q8H PRN PRN Reason: Nausea And Vomiting Sodium Chloride (Sodium Chloride 0.9% 10 Ml Flush Syringe) 10 ml IV BID GUSTAVO Sodium Chloride (Sodium Chloride 0.9% 10 Ml Flush Syringe) 10 ml IV PRN PRN PRN Reason: LINE FLUSH Review of Systems All systems: negative (Except as noted in HPI) Exam - Physical Exam Narrative exam: Physical exam General appearance: Present: No acute distress, alert and oriented 3, - Greek male - EENT Eyes: Present: PERRL, EOM intact ENT: hearing intact, normal dentition - Neck Neck: Present: supple, normal ROM - Respiratory Respiratory effort: Non-labored Respiratory: Scattered wheezing with prolonged expiratory phase - Cardiovascular Heart rate: 122 (bpm) Rhythm: Sinus tachycardia Heart Sounds: Present: S1 & S2. Absent: rub, click - Extremities Extremities: no ischemia, pulses intact, - Peripheral Assessment Peripheral Pulses: within normal limits - Abdominal General gastrointestinal: soft, non-tender, normal bowel sounds - Integumentary Integumentary: Present: warm, dry - Musculoskeletal Musculoskeletal: Able to move all extremities -Neurological Neurological: CN II-XII intact - Psychiatric Psychiatric: Appropriate for situation ,cooperative - Constitutional Vitals: Temp Pulse Resp BP Pulse Ox 98.0 F 122 H 22 127/72 94 10/17/20 22:25 10/17/20 22:57 10/17/20 22:57 10/17/20 22:25 10/17/20 22:25 HEART Score - HEART Score Troponin: WBC 13.8 K/mm3 (4.5-11.0) H 10/18/20 00:10 RBC 5.29 M/mm3 (3.65-5.03) H 10/18/20 00:10 Hgb 11.0 gm/dl (11.8-15.2) L 10/18/20 00:10 Hct 34.1 % (35.5-45.6) L 10/18/20 00:10 MCV 64 fl (84-94) L 10/18/20 00:10 MCH 21 pg (28-32) L 10/18/20 00:10 MCHC 32 % (32-34) 10/18/20 00:10 RDW 16.9 % (13.2-15.2) H 10/18/20 00:10 Plt Count 274 K/mm3 (140-440) 10/18/20 00:10 Lymph % (Auto) 12.9 % (13.4-35.0) L 10/18/20 00:10 Nance % (Auto) 2.9 % (0.0-7.3) 10/18/20 00:10 Eos % (Auto) 4.7 % (0.0-4.3) H 10/18/20 00:10 Baso % (Auto) 0.4 % (0.0-1.8) 10/18/20 00:10 Lymph # (Auto) 1.8 K/mm3 (1.2-5.4) 10/18/20 00:10 Nance # (Auto) 0.4 K/mm3 (0.0-0.8) 10/18/20 00:10 Eos # (Auto) 0.6 K/mm3 (0.0-0.4) H 10/18/20 00:10 Baso # (Auto) 0.1 K/mm3 (0.0-0.1) 10/18/20 00:10 Seg Neutrophils % 79.1 % (40.0-70.0) H 10/18/20 00:10 Seg Neutrophils # 11.0 K/mm3 (1.8-7.7) H 10/18/20 00:10 D-Dimer 1284.75 ng/mlDDU (0-234) H 10/18/20 00:10 Sodium 136 mmol/L (137-145) L 10/18/20 00:10 Potassium 3.7 mmol/L (3.6-5.0) 10/18/20 00:10 Chloride 101.7 mmol/L (98-107) 10/18/20 00:10 Carbon Dioxide 23 mmol/L (22-30) 10/18/20 00:10 Anion Gap 15 mmol/L 10/18/20 00:10 BUN 10 mg/dL (9-20) 10/18/20 00:10 Creatinine 1.1 mg/dL (0.8-1.3) 10/18/20 00:10 Estimated GFR > 60 ml/min 10/18/20 00:10 BUN/Creatinine Ratio 9 % 10/18/20 00:10 Glucose 150 mg/dL (75-100) H 10/18/20 00:10 Calcium 7.3 mg/dL (8.4-10.2) L 10/18/20 00:10 Total Bilirubin 0.20 mg/dL (0.1-1.2) 10/18/20 00:10 AST 15 units/L (5-40) 10/18/20 00:10 ALT 10 units/L (7-56) 10/18/20 00:10 Alkaline Phosphatase 134 units/L (35-129) H 10/18/20 00:10 Troponin T < 0.010 ng/mL (0.00-0.029) 10/18/20 01:43 Total Protein 5.9 g/dL (6.3-8.2) L 10/18/20 00:10 Albumin 1.4 g/dL (3.9-5) L 10/18/20 00:10 Albumin/Globulin Ratio 0.3 % 10/18/20 00:10 Results - Labs CBC & Chem 7: 10/18/20 00:10 10/18/20 00:10 Labs: Laboratory Last Values WBC 13.8 K/mm3 (4.5-11.0) H 10/18/20 00:10 RBC 5.29 M/mm3 (3.65-5.03) H 10/18/20 00:10 Hgb 11.0 gm/dl (11.8-15.2) L 10/18/20 00:10 Hct 34.1 % (35.5-45.6) L 10/18/20 00:10 MCV 64 fl (84-94) L 10/18/20 00:10 MCH 21 pg (28-32) L 10/18/20 00:10 MCHC 32 % (32-34) 10/18/20 00:10 RDW 16.9 % (13.2-15.2) H 10/18/20 00:10 Plt Count 274 K/mm3 (140-440) 10/18/20 00:10 Lymph % (Auto) 12.9 % (13.4-35.0) L 10/18/20 00:10 Nance % (Auto) 2.9 % (0.0-7.3) 10/18/20 00:10 Eos % (Auto) 4.7 % (0.0-4.3) H 10/18/20 00:10 Baso % (Auto) 0.4 % (0.0-1.8) 10/18/20 00:10 Lymph # (Auto) 1.8 K/mm3 (1.2-5.4) 10/18/20 00:10 Nance # (Auto) 0.4 K/mm3 (0.0-0.8) 10/18/20 00:10 Eos # (Auto) 0.6 K/mm3 (0.0-0.4) H 10/18/20 00:10 Baso # (Auto) 0.1 K/mm3 (0.0-0.1) 10/18/20 00:10 Seg Neutrophils % 79.1 % (40.0-70.0) H 10/18/20 00:10 Seg Neutrophils # 11.0 K/mm3 (1.8-7.7) H 10/18/20 00:10 D-Dimer 1284.75 ng/mlDDU (0-234) H 10/18/20 00:10 Sodium 136 mmol/L (137-145) L 10/18/20 00:10 Potassium 3.7 mmol/L (3.6-5.0) 10/18/20 00:10 Chloride 101.7 mmol/L (98-107) 10/18/20 00:10 Carbon Dioxide 23 mmol/L (22-30) 10/18/20 00:10 Anion Gap 15 mmol/L 10/18/20 00:10 BUN 10 mg/dL (9-20) 10/18/20 00:10 Creatinine 1.1 mg/dL (0.8-1.3) 10/18/20 00:10 Estimated GFR > 60 ml/min 10/18/20 00:10 BUN/Creatinine Ratio 9 % 10/18/20 00:10 Glucose 150 mg/dL (75-100) H 10/18/20 00:10 Calcium 7.3 mg/dL (8.4-10.2) L 10/18/20 00:10 Total Bilirubin 0.20 mg/dL (0.1-1.2) 10/18/20 00:10 AST 15 units/L (5-40) 10/18/20 00:10 ALT 10 units/L (7-56) 10/18/20 00:10 Alkaline Phosphatase 134 units/L (35-129) H 10/18/20 00:10 Troponin T < 0.010 ng/mL (0.00-0.029) 10/18/20 01:43 Total Protein 5.9 g/dL (6.3-8.2) L 10/18/20 00:10 Albumin 1.4 g/dL (3.9-5) L 10/18/20 00:10 Albumin/Globulin Ratio 0.3 % 10/18/20 00:10 - Imaging and Cardiology Chest x-ray: report reviewed, image reviewed (Possible mild pneumonitis in the right base) Assessment and Plan Assessment and plan: -Greek male with history of asthma, gout, bronchitis, pancreatitis who presents to [facility] ED with complaints of chills, noncardiac chest pain, shortness of breath and generalized weakness x2 days. Suspected COVID-19 infection -Complains of loss of smell x2 weeks, increased shortness of breath, generalized weakness -Last tested for Covid on 09/13 with negative results -D-dimer elevated, CT chest pending -Covid swab pending -On subcu Lovenox for DVT PPx -Supportive care Acute Exacerbation Asthma -CXR shows mild pneumonitis and right lung base -Continue supportive care -Scheduled Duo Nebs and Pulmicort -IV systemic steroids -Mucinex -Start IV abx SIRS -Leukocytosis 13.8 ( up from 13.3 on 09/14/20) -Tachycardic with heart rate 122 bpm -Afebrile -Blood cultures and sputum pending -Continue to workup source of infection -Follow up on labs -Continue supportive care Pneumonitis -In right lung base seen on today's CXR -On IV ABX -Day team may consider ID and/or consult Anemia -Hemoglobin on admission 11.0 -Stable -No s/s of active bleeding -Continue to monitor hemoglobin -Transfuse as needed DVT PPX -On Lovenox Advance Directives: No VTE prophylaxis?: Chemical
[2020-10-18 02:56] LABS: INR 1.16 (0.87-1.13)
[2020-10-18 02:57] LABS: Partial Thromboplastin Time 42.8 Sec. (24.2-36.6)
--- NOTE | 2020-10-18 03:08 | Cat Scan Report ---
CTA CHEST WITH IV CONTRAST INDICATION: Shortness of breath, elevated d-dimer, history of asthma with two recent attacks CONTRAST: 100 cc Omnipaque 350 IV COMPARISON: CTA chest 08/02/2020, portable chest x-ray 10/17/2020 Three-plane MIP reconstructions were produced. All CT scans at this location are performed using CT d ose reduction for ALARA by means of automated exposure control. FINDINGS: No significant chest wall lesions are seen. Bilateral mild axillary lymph node prominence i s unchanged, right greater than left. Largest individual node is in the right axilla with short axis diameter of 11 mm. Bilateral hilar and mediastinal moderate adenopathy is mildly more prominent. Larg est node is in the subcarinal area with short axis diameter of 18 mm. No pleural effusions are seen. No pneumothorax or pneumomediastinum are noted. No obvious endobronchial lesions are seen. No definit e pulmonary nodules or masses are seen. Previously there were scattered mild bilateral multilobar groundglass type interstitial infiltrates. Those areas of infiltrate have mostly cleared but more extensive and prominent similar groundglass ty pe infiltrate is now seen mostly in the lung bases in the lower lobes and right middle lobe but also in the upper lobes, particularly on the right. Aorta shows no aneurysmal dilatation or evidence of dissection. Good opacification of the pulmonary arterial system was achieved. I do not see evidence of pulmonary thromboembolism. IMPRESSION: 1. No evidence of pulmonary thromboembolism 2. Areas of bilateral interstitial infiltrate which are nonspecific but certainly could include viral pneumonitis. Patient showed similar interstitial infiltrates in a different distribution on the prio r examination in July. These are significantly more prominent today however. 3. Bilateral hilar and mediastinal adenopathy is mildly more prominent. This could be reactive based on the pulmonary infiltrates. However, there is also mild bilateral axillary adenopathy which is stab le from study in July. Recommend clinical and CT follow-up. Signer Name: Samuel Lima MD Signed: 10/18/2020 3:03 AM Workstation Name: [id number]
[2020-10-18] MEDS ORDERED: CALCIUM GLUCONATE 1,000 MG in SODIUM CHLORIDE 0.9% 100 ML IV ONE (03:15)
[2020-10-18 03:40] LABS: C-Reactive Protein 8.9 mg/dL (0.00-1.30)
[2020-10-18] MEDS: methylPREDNISolone Sod Succinate 40 MG/1 ML INJ IV SCH ×3 (06:45→17:56)
[2020-10-18] MEDS: CEFEPIME/NS 1 GM/100 ML 1 GM/100 ML BAG IV SCH ×2 (06:46→13:54)
[2020-10-18] MEDS: ENOXAPARIN 40 MG/0.4 ML INJ SUB-Q SCH (10:16)
[2020-10-18] MEDS: guaiFENesin ER 600 MG TAB PO SCH ×2 (10:16→22:49)
[2020-10-18] MEDS: NICOTINE 14 MG/24 HR PATCH TD SCH (10:20)
[2020-10-18] MEDS: BUDESONIDE 0.5 MG/2 ML NEBU IH SCH ×2 (10:46→21:46)
[2020-10-18] MEDS: IPRATROPIUM/ALBUTEROL SULFATE 3 ML AMPUL.NEB IH SCH ×3 (10:46→21:46)
[2020-10-18 12:00] LABS: C-Reactive Protein 8.5 mg/dL (0.00-1.30)
--- NOTE | 2020-10-18 14:33 | Consultation ---
History of Present Illness - Reason for Consult Consult date: 10/18/20 COVID PUI Requesting physician: CAITY ATKINSON - History of Present Illness The patient is a 39-year-old male with history of asthma, gout, bronchitis, pancreatitis was recently hospitalized with cough and shortness of breath in August 2020, COVID-19 testing was negative, was discharged home, now readmitted with increasing shortness of breath, cough and sputum production. CT chest showed bilateral interstitial infiltrates, kind of similar in appearance to his previous CT scan. There was also bilateral hilar and mediastinal lymphadenopathy present. COVID-19 testing again is negative. Infectious diseases was consulted for additional evaluation. No fever. Diagnosed with asthma within the last 1 year. Symptoms similarly have been going on for the same duration. Works in a warehouse. Tested negative for HIV 2 years ago. Quit cigarette smoking. Denies any other recreational drug use. Denies high risk sexual behavior. Review of Systems: General: no fevers,chills or rigors HEENT: no new visual disturbance Respiratory: cough, wheeze, shortness of breath Cardiovascular: No chest pain, syncope Gastrointestinal: No nausea, vomiting or diarrhea Genitourinary: No dysuria or hematuria Musculoskeletal: No new or worsening neck pain or back pain Neurologic: No headaches, seizures Hematologic: No easy bruising or bleeding Endocrine: No night sweats or acute weight loss Skin: negative for rash, jaundice Psychiatric: No suicidal or homicidal ideation Past History Past Medical History: other (Asthma, gout, bronchitis, prior keratitis) Past Surgical History: No surgical history Social history: single, lives with family, smoking. denies: alcohol abuse, prescription drug abuse, IV drug use Family history: other (Denies family medical history) Medications and Allergies Allergies Allergy/AdvReac Type Severity Reaction Status Date / Time No Known Allergies Allergy Verified 04/25/20 15:17 Home Medications Medication Instructions Recorded Confirmed Last Taken Type Albuterol Mdi (or & Nicu Only) 2 puff IH QID PRN #8.5 gram 09/15/20 10/18/20 Unknown Rx [ProAir HFA Inhaler] Budesonide/Formoterol Fumarate 10.2 gm IH BID #1 hfa.aer.ad 09/15/20 10/18/20 Unknown Rx [Symbicort 160-4.5 Mcg Inhaler] lisinopriL [Zestril TAB] 1 tab PO DAILY 10/18/20 10/18/20 Unknown History Active Meds: Active Medications Acetaminophen (Acetaminophen 325 Mg Tab) 650 mg PO Q4H PRN PRN Reason: Pain MILD(1-3)/Fever >100.5/MUSE Albuterol/Ipratropium (Ipratropium/Albuterol Sulfate 3 Ml Ampul.Neb) 1 ampul IH Q6HRT GUSTAVO Budesonide (Budesonide 0.5 Mg/2 Ml Nebu) 0.5 mg IH Q12HRT GUSTAVO Enoxaparin Sodium (Enoxaparin 40 Mg/0.4 Ml Inj) 40 mg SUB-Q QDAY [facility] Last Admin: 10/18/20 10:16 Dose: 40 mg Documented by: Guaifenesin (Guaifenesin Er 600 Mg Tab) 600 mg PO BID [facility] Last Admin: 10/18/20 10:16 Dose: 600 mg Documented by: Cefepime HCl (Cefepime/Ns 1 Gm/100 Ml) 1 gm in 100 mls @ 200 mls/hr IV Q8HR [facility]; Protocol Last Admin: 10/18/20 13:54 Dose: 200 mls/hr Documented by: Methylprednisolone Sodium Succinate (Methylprednisolone Sod Succinate 40 Mg/1 Ml Inj) 40 mg IV Q6HR [facility] Last Admin: 10/18/20 13:06 Dose: 40 mg Documented by: Nicotine (Nicotine 14 Mg/24 Hr Patch) 14 mg TD QDAY [facility] Last Admin: 10/18/20 10:20 Dose: Not Given Documented by: Ondansetron HCl (Ondansetron 4 Mg/2 Ml Inj) 4 mg IV Q8H PRN PRN Reason: Nausea And Vomiting Sodium Chloride (Sodium Chloride 0.9% 10 Ml Flush Syringe) 10 ml IV BID [facility] Last Admin: 10/18/20 10:17 Dose: 10 ml Documented by: Sodium Chloride (Sodium Chloride 0.9% 10 Ml Flush Syringe) 10 ml IV PRN PRN PRN Reason: LINE FLUSH Physical Examination - Physical Exam Narrative exam: Physical Exam: Constitutional: Alert, cooperative. No acute distress Head, Ears, Nose: Normocephalic, atraumatic. External ears, nose normal Eyes: Conjunctivae/corneas clear. No icterus. No ptosis. Neck: Supple, no meningeal signs Oral: mask Cardiovascular: S1, S2 normal. Respiratory: b/l wheeze GI: Soft, non-tender; bowel sounds normal. No peritoneal signs Musculoskeletal: No pedal edema, no cyanosis. Skin: No rash or abscess Hem/Lymphatic: No palpable cervical or supraclavicular nodes. No lymphangitis Psych: Mood ok. Affect normal Neurological: Awake, alert, oriented. No gross abnormality - Constitutional Vitals: Vital Signs Temp Pulse Resp BP Pulse Ox 97.6 F 78 18 124/67 95 10/18/20 09:12 10/18/20 14:02 10/18/20 14:02 10/18/20 14:02 10/18/20 14:02 Temperature -Last 24 Hours Temperature 97.6 F Temperature 98.0 F Results - Labs CBC & Chem 7: 10/18/20 00:10 10/18/20 00:10 Labs: Abnormal lab results 10/18/20 10/18/20 10/18/20 Range/Units 00:10 00:10 00:10 WBC 13.8 H (4.5-11.0) K/mm3 RBC 5.29 H (3.65-5.03) M/mm3 Hgb 11.0 L (11.8-15.2) gm/dl Hct 34.1 L (35.5-45.6) % MCV 64 L (84-94) fl MCH 21 L (28-32) pg RDW 16.9 H (13.2-15.2) % Lymph % (Auto) 12.9 L (13.4-35.0) % Eos % (Auto) 4.7 H (0.0-4.3) % Eos # (Auto) 0.6 H (0.0-0.4) K/mm3 Seg Neutrophils % 79.1 H (40.0-70.0) % Seg Neutrophils # 11.0 H (1.8-7.7) K/mm3 INR (0.87-1.13) APTT (24.2-36.6) Sec. D-Dimer 1284.75 H (0-234) ng/mlDDU POC ABG pO2 (83-108) mmHg ABG Hemoglobin (12.0-17.5) ABG Oxyhemoglobin (94-98) ABG Glucose (65-95) mg/dL Sodium 136 L (137-145) mmol/L Glucose 150 H (75-100) mg/dL Calcium 7.3 L (8.4-10.2) mg/dL Ferritin (30.0-300.0) ng/mL Alkaline Phosphatase 134 H (35-129) units/L Lactate Dehydrogenase (91-180) units/L C-Reactive Protein (0.00-1.30) mg/dL Total Protein 5.9 L (6.3-8.2) g/dL Albumin 1.4 L (3.9-5) g/dL Arterial Blood Glucose (65-95) mg/dL Arterial Blood Ionized Calcium (4.6-5.3) mg/dL 10/18/20 10/18/20 10/18/20 Range/Units 01:43 02:12 02:12 WBC (4.5-11.0) K/mm3 RBC (3.65-5.03) M/mm3 Hgb (11.8-15.2) gm/dl Hct (35.5-45.6) % MCV (84-94) fl MCH (28-32) pg RDW (13.2-15.2) % Lymph % (Auto) (13.4-35.0) % Eos % (Auto) (0.0-4.3) % Eos # (Auto) (0.0-0.4) K/mm3 Seg Neutrophils % (40.0-70.0) % Seg Neutrophils # (1.8-7.7) K/mm3 INR 1.16 H (0.87-1.13) APTT 42.8 H (24.2-36.6) Sec. D-Dimer 1216.52 H (0-234) ng/mlDDU POC ABG pO2 (83-108) mmHg ABG Hemoglobin (12.0-17.5) ABG Oxyhemoglobin (94-98) ABG Glucose (65-95) mg/dL Sodium (137-145) mmol/L Glucose (75-100) mg/dL Calcium (8.4-10.2) mg/dL Ferritin 395.8 H (30.0-300.0) ng/mL Alkaline Phosphatase (35-129) units/L Lactate Dehydrogenase 473 H (91-180) units/L C-Reactive Protein 8.90 H (0.00-1.30) mg/dL Total Protein (6.3-8.2) g/dL Albumin (3.9-5) g/dL Arterial Blood Glucose (65-95) mg/dL Arterial Blood Ionized Calcium (4.6-5.3) mg/dL 10/18/20 10/18/20 10/18/20 Range/Units 11:18 Unknown Unknown WBC (4.5-11.0) K/mm3 RBC (3.65-5.03) M/mm3 Hgb (11.8-15.2) gm/dl Hct (35.5-45.6) % MCV (84-94) fl MCH (28-32) pg RDW (13.2-15.2) % Lymph % (Auto) (13.4-35.0) % Eos % (Auto) (0.0-4.3) % Eos # (Auto) (0.0-0.4) K/mm3 Seg Neutrophils % (40.0-70.0) % Seg Neutrophils # (1.8-7.7) K/mm3 INR (0.87-1.13) APTT (24.2-36.6) Sec. D-Dimer (0-234) ng/mlDDU POC ABG pO2 64.3 L (83-108) mmHg ABG Hemoglobin 10.9 L (12.0-17.5) ABG Oxyhemoglobin 90.9 L (94-98) ABG Glucose 309 H (65-95) mg/dL Sodium (137-145) mmol/L Glucose (75-100) mg/dL Calcium (8.4-10.2) mg/dL Ferritin 406.3 H (30.0-300.0) ng/mL Alkaline Phosphatase (35-129) units/L Lactate Dehydrogenase 238 H (91-180) units/L C-Reactive Protein 8.50 H (0.00-1.30) mg/dL Total Protein (6.3-8.2) g/dL Albumin (3.9-5) g/dL Arterial Blood Glucose 309 H (65-95) mg/dL Arterial Blood Ionized Calcium 4.5 L (4.6-5.3) mg/dL - Imaging and Cardiology Chest x-ray: report reviewed, image reviewed CT scan - chest: report reviewed, image reviewed (CT chest showed bilateral interstitial infiltrates, kind of similar in appearance to his previous CT scan.) Assessment and Plan Cultures: 09/13/2020 sputum culture: Usual respiratory dian 10/18/2020 blood culture: In process 10/18/2020 COVID-19 PCR: Negative A/P: 39-year-old male with history of asthma, gout, bronchitis: #Bilateral pneumonia: Infectious versus noninfectious, favor latter. Similar presentation in August 2020. Eosinophilia noted on peripheral blood count, evaluate for eosinophilic pneumonitis versus Churg-Dada. Patient with history of asthma, diagnosed within the last 1 year. Procalcitonin remains low at 0.12. Afebrile. CT chest showed bilateral interstitial infiltrates, kind of similar in appearance to his previous CT scan but different location / ?migratory. #Eosinophilia: Noted patient has now been started on steroids which will result in rapid improvement in eosinophilia. Recs: HIV test ordered (verbal consent obtained from patient) Pulmonary consult Low suspicion for bacterial infection, antibiotics discontinued Isak Juares MD, FACP [facility] ([facility] O: [phone] F: [phone]
--- NOTE | 2020-10-18 17:58 | Event Note ---
Date: 10/18/20 39-year-old male with history of asthma, gout, bronchitis and former smoker ( 2 pack per week for 25 years, quit last week), pancreatitis who presented to the emergency department on 10/18 with complaints of shortness of breath and generalized weakness for 2 days, wheezing and occasional productive cough with thick white/yellow sputum. CT chest shows bilateral interstitial infiltrate. Patient is a COVID-19 PUI and his PCR resulted as negative. Infectious disease was consulted and they are evaluating for eosinophilic pneumonitis versus Churg- Dada. His antibiotics were discontinued by infectious disease given low procalcitonin and he will be continued on steroid therapy. Patient states that he feels symptomatically better and remains on room air at the time of examination. Vital signs stable. We will continue to monitor
[2020-10-19] MEDS: methylPREDNISolone Sod Succinate 40 MG/1 ML INJ IV SCH ×2 (00:09→05:38)
[2020-10-19] MEDS: IPRATROPIUM/ALBUTEROL SULFATE 3 ML AMPUL.NEB IH SCH ×3 (02:00→17:31)
[2020-10-19 05:46] LABS: Basophils % (Auto) 0.2 % (0.0-1.8); Hematocrit 31.2 % (35.5-45.6); Hemoglobin 9.9 gm/dl (11.8-15.2); Lymphocytes % (Auto) 8.9 % (13.4-35.0); Mean Corpuscular HGB Conc 32 % (32-34); Monocytes # (Auto) 0.3 K/mm3 (0.0-0.8); Monocytes % (Auto) 2.2 % (0.0-7.3); Platelet Count 265 K/mm3 (140-440); Red Blood Count 4.72 M/mm3 (3.65-5.03); Red Cell Distribution Width 17.2 % (13.2-15.2)
[2020-10-19 05:50] LABS: Mean Corpuscular Volume 66 fl (84-94)
[2020-10-19 06:04] LABS: Calcium 7.7 mg/dL (8.4-10.2)
[2020-10-19] MEDS ORDERED: SODIUM CHLORIDE 0.9% 1000 ML 1,000 ML IV ONE (07:42)
[2020-10-19] MEDS ORDERED: ALBUTEROL 8.5 GM MDI INHALATION IH PRN (07:50)
[2020-10-19] MEDS ORDERED: amLODIPine 5 MG TAB PO NR (07:53)
[2020-10-19] MEDS: BUDESONIDE 0.5 MG/2 ML NEBU IH SCH (08:02)
--- NOTE | 2020-10-19 08:41 | Event Note ---
Date: 10/19/20 Know this patient from last hospital stay. Did not follow up in office. Agree with ID assessment especially with eosinophillia. Can speak with GI lab, not sure if they are doing elective cases at this time but bronch is not unreasonable. Would also consider ABPA in this patient as well but eosinophillic pneumonia and Churg-Glen are definitely in the differential. Diagnosis would be beneficial to help determine length of therapy. Good news is steroids would treat most causes of eosinophillia. Loffeler's is not unreasonable as well but does not have risk factors for this.
[2020-10-19] MEDS ORDERED: ALBUTEROL 2.5 MG/3 ML NEBU IH PRN (09:00)
[2020-10-19] MEDS: guaiFENesin ER 600 MG TAB PO SCH (09:37)
[2020-10-19] MEDS: NICOTINE 14 MG/24 HR PATCH TD SCH ×2 (09:37→09:41)
[2020-10-19] MEDS: ENOXAPARIN 40 MG/0.4 ML INJ SUB-Q SCH ×2 (09:37→09:41)
--- NOTE | 2020-10-19 09:55 | Discharge Summary ---
<CAITY ATKINSONVick - Last Filed: 10/19/20 10:01> Providers - Providers Date of Admission: 10/18/20 02:31 Attending physician: OMKAR SANCHEZ MD 10/18/20 08:14 Consult to Physician [CONS] Routine Comment: Consulting Provider: JERMAINE HAYES Physician Instructions: Reason For Exam: covid pui 10/18/20 08:15 Consult to Physician [CONS] Routine Comment: Consulting Provider: FLAKITO GRANGER Physician Instructions: Reason For Exam: covid pui, pulm hx Primary care physician: [facility] [employer] Hospitalization Condition: Stable Pertinent studies: 10/17 CXR shows new mild asymmetric density seen laterally in the right base. Possibly this could represent mild developing pneumonitis 10/17 CTA chest shows no significant chest wall lesions are seen. Bilateral mild axillary lymph node prominence is unchanged, right greater than left. Largest individual node is in the right axilla with short axis diameter of 11 mm. Bilateral hilar and mediastinal moderate adenopathy is mildly more prominent. Largest node is in the subcarinal area with short axis diameter of 18 mm. No pleural effusions are seen. No pneumothorax or pneumomediastinum are noted. No obvious endobronchial lesions are seen. No definite pulmonary nodules or masses are seen. Previously there were scattered mild bilateral multilobar groundglass type interstitial infiltrates. Those areas of infiltrate have mostly cleared but more extensive and prominent similar groundglass type infiltrate is now seen mostly in the lung bases in the lower lobes and right middle lobe but also in the upper lobes, particularly on the right. Aorta shows no aneurysmal dilatation or evidence of dissection. Good opacification of the pulmonary arterial system was achieved. I do not see evidence of pulmonary thromboembolism. Hospital course: 39-year-old male with asthma, gout,HTN, bronchitis and former smoker ( 2 pack per week for 25 years, quit last week) and pancreatitis who presented to the emergency department on 10/18 with complaints of shortness of breath and generalized weakness for 2 days, wheezing and occasional productive cough with thick white/yellow sputum. CT chest shows bilateral interstitial infiltrate. Patient is a COVID-19 PUI and his PCR resulted as negative. Infectious disease was consulted and they are evaluating for eosinophilic pneumonitis versus Churg- Dada. His antibiotics were discontinued by infectious disease given low procalcitonin and he will be continued on steroid therapy. Patient had a long discussion with Dr. Granger and revealed that patient was being worked up at [facility] and they wanted to start steroids for 6 months however the patient was hesitant. Dr. Granger has encouraged the patient to follow-up with [facility] and to start steroid therapy for [address] Granger is recommending a follow-up bronchoscopy in 6 months. This morning patient has WILLI (Cr/BUN 2.2/28 from Cr/BUN 1.1/10 at admit) but revealed to day that he has "issues with his kidneys and was started on lisinopril and a water pill." We will bolus the patient this morning and f/u BMP. Patient will need to follow-up with his primary care physician and [place] within 1 to 2 weeks of discharge. Patient will be discharged with a steroid taper. SIRS -Leukocytosis 13.8 ( up from 13.3 on 09/14/20) -Tachycardic with heart rate 122 bpm -Afebrile -10/18 blood culture x2 no growth for 48 hours Suspected COVID-19 infection -Complains of loss of smell x2 weeks, increased shortness of breath, generalized weakness -Last tested for Covid on 09/13 with negative results -D-dimer 1216, CT chest shows no acute pulmonary embolism -10/18 COVID-19 PCR negative Acute Exacerbation Asthma -CXR shows mild pneumonitis and right lung base -Continue supportive care -Continue duo nebs and Pulmicort -Will be discharged on a steroid taper -Continue Mucinex -S/p antibiotics Pneumonitis -In right lung base seen on today's CXR -S/p on IV ABX -Infectious disease consulted, appreciate recommendations -Pulmonology consulted, appreciate recommendations Anemia -Hemoglobin on admission 11.0 -Stable -Continue [id number] supplementation Disposition: DC- TO HOME OR SELFCARE Time spent for discharge: 35 Core Measure Documentation - Palliative Care Palliative Care/ Comfort Measures: Not Applicable - Core Measures Any of the following diagnoses?: none Exam - Constitutional Vitals: Temp Pulse Resp BP Pulse Ox 96.2 F L 67 14 127/76 94 10/19/20 08:23 10/19/20 08:23 10/19/20 04:26 10/19/20 08:23 10/19/20 08:23 General appearance: Present: no acute distress - EENT Eyes: Present: PERRL, EOM intact ENT: hearing intact, clear oral mucosa, dentition normal - Neck Neck: Present: normal ROM - Respiratory Respiratory effort: normal Respiratory: bilateral: CTA - Cardiovascular Rhythm: regular Heart Sounds: Present: S1 & S2. Absent: systolic murmur, diastolic murmur - Extremities Extremities: no ischemia, pulses intact, pulses symmetrical, No edema, normal temperature, normal color, Full ROM Peripheral Pulses: within normal limits - Abdominal General gastrointestinal: Present: soft, non-tender, non-distended, normal bowel sounds - Integumentary Integumentary: Present: clear, warm, dry - Musculoskeletal Musculoskeletal: strength equal bilaterally - Psychiatric Psychiatric: appropriate mood/affect, memory intact, cooperative - Neurologic Neurologic: CNII-XII intact, no focal deficits, moves all extremities - Allied Health Allied health notes reviewed: nursing Plan Activity: advance as tolerated Diet: regular Special Instructions: smoking cessation Additional Instructions: If you experience worsening symptoms present to nearest emergency department contact your primary care physician. Follow-up with your primary care physician within 1 to 2 weeks of discharge. Follow-up with [facility] as discussed with Dr. Granger. You will be discharged with a steroid taper. It is recommended that you follow-up with Dr. Granger for bronchoscopy within 6 months. Follow up with: PRIMARY CAREMD [Primary Care Provider] - 7 Days Forms: Work/School Release Form Prescriptions: amLODIPine 5 mg PO ONCE #30 tablet predniSONE [Deltasone] 5 mg PO .TAPER #48 tab guaiFENesin ER [Mucinex ER] 600 mg PO BID #14 tablet <OMKAR SANCHEZ - Last Filed: 10/20/20 16:34> Providers - Providers Date of Admission: 10/18/20 02:31 Attending physician: OMKAR SANCHEZ MD 10/18/20 08:14 Consult to Physician [CONS] Routine Comment: Consulting Provider: JERMAINE HAYES Physician Instructions: Reason For Exam: covid pui 10/18/20 08:15 Consult to Physician [CONS] Routine Comment: Consulting Provider: FLAKITO GRANGER Physician Instructions: Reason For Exam: covid pui, pulm hx Primary care physician: [employer] [employer] Hospitalization Hospital course: I saw and evaluated the patient. I agree with the findings and the plan of care as documented in the Nurse Practitioner's~note, with the following corrections and additions. Exam - Constitutional Vitals: Temp Pulse Resp BP Pulse Ox 96.9 F L 75 18 136/84 97 10/19/20 12:45 10/19/20 12:45 10/19/20 12:45 10/19/20 12:45 10/19/20 12:45
[2020-10-19] MEDS ORDERED: NON-FORMULARY EACH (Budesonide/Formoterol Fumarate [Symbicort 160-4.5 Mcg Inhaler] 10.2 GM IH SCH (10:00)
[2020-10-19] MEDS ORDERED: LISINOPRIL 20 MG TAB PO SCH (10:00)
[2020-10-19] MEDS ORDERED: BUDESONIDE 0.5 MG/2 ML NEBU IH SCH (12:00)
[2020-10-19] MEDS ORDERED: FLU VACC QUAD 2020-2021 (6 months +)/PF 60 0.5 ML SYRINGE IM ONE (12:00)
[2020-10-19] MEDS ORDERED: ARFORMOTEROL 15 MCG/2 ML NEBU IH SCH (12:00)
[2020-10-19 13:19] VITALS: BP 136/84
[2020-10-20] MEDS ORDERED: ENOXAPARIN 30 MG/0.3 ML INJ SUB-Q SCH (10:00)
== END 2020-10-19 14:10 | disposition home or self-care (01) | DRG 202 ==
LOC: ED 21:21 → 3A 10-18 02:31 → 4A 10-18 20:04
PROVIDERS: ADMIT Internal Medicine Geriatric Medicine; ATTEND Internal Medicine
PROC: 4A033R1 Measurement of Arterial Saturation, Peripheral, Percutaneous Approach (ICD-10-PCS; principal; 2020-10-18)
DX: J45.41 Moderate persistent asthma with (acute) exacerbation (principal); J18.9 Pneumonia, unspecified organism; R65.10 Systemic inflammatory response syndrome (SIRS) of non-infectious origin without acute organ dysfunction; N17.9 Acute kidney failure, unspecified; Z20.828 Contact with and (suspected) exposure to other viral communicable diseases; M10.9 Gout, unspecified; D64.9 Anemia, unspecified; D72.10 Eosinophilia, unspecified; I10 Essential (primary) hypertension; Z87.891 Personal history of nicotine dependence
CPT/HCPCS: 36415; 36600; 71045; 71275; 80048; 80053; 82565; 82728; 82805; 83520; 83615; 84145; 84484; 84520; 85025; 85379; 85610; 85730; 86140; 86689; 87040; 87205; 93005; 94640; 94644; G0378; J0610; J0692; J0696; J1100; J1650; J2920; J3475; J7030; Q9967; U0003